=== PATIENT | female | born 1960 | race Caucasian/White ===

== ENCOUNTER 2020-07-12 13:02 | Outpatient (REF) | payer OTHER, SELFPAY ==
[2020-07-12 14:40] LABS: Anion Gap 13 (12-20); Blood Urea Nitrogen 14 mg/dL (9-16); Calcium 9.1 mg/dL (8.4-10.2); Carbon Dioxide 25 mmol/L (22-29); Chloride 106 mmol/L (96-108); Estimated Glomerular Filt Rate 45; Potassium 4.4 mmol/l (3.3-5.1); Sodium 140 mmol/L (135-145)
[2020-07-12 16:22] LABS: Renal w Reflex Lab Use Only Order verified
== END 2020-07-12 13:03 | disposition home or self-care (01) ==
LOC: HO.LAB 13:02
PROVIDERS: PCP Internal Medicine; Visit Provider Internal Medicine Nephrology
DX: I12.9 Hypertensive chronic kidney disease with stage 1 through stage 4 chronic kidney disease, or unspecified chronic kidney disease (principal); N18.30 Chronic kidney disease, stage 3 unspecified
CPT/HCPCS: 36415; 80051; 82310; 82565; 84520

== ENCOUNTER 2020-09-27 14:14 | Outpatient (REF) | payer OTHER, SELFPAY ==
[2020-09-27 16:18] LABS: Anion Gap 14 (12-20); Blood Urea Nitrogen 19 mg/dL (9-16); Calcium 8.8 mg/dL (8.4-10.2); Carbon Dioxide 21 mmol/L (22-29); Chloride 109 mmol/L (96-108); Estimated Glomerular Filt Rate 45; Phosphorus 2.6 mg/dL (2.7-4.5); Potassium 4.4 mmol/L (3.3-5.1); Sodium 140 mmol/L (135-145)
[2020-09-27 16:32] LABS: Renal w Reflex Lab Use Only Order verified
[2020-09-27 17:20] LABS: Creatinine Urine 230.62 mg/dL; Microalbum/Creatinine Ratio Ur 309.6 ug/mg cr
== END 2020-09-27 14:15 | disposition home or self-care (01) ==
LOC: HO.LAB 14:14
PROVIDERS: PCP Internal Medicine; Visit Provider Internal Medicine Nephrology
DX: I12.9 Hypertensive chronic kidney disease with stage 1 through stage 4 chronic kidney disease, or unspecified chronic kidney disease (principal); N18.30 Chronic kidney disease, stage 3 unspecified
CPT/HCPCS: 36415; 80051; 82043; 82310; 82565; 84100; 84520

== ENCOUNTER 2021-01-26 13:07 | Outpatient (REF) | payer OTHER, SELFPAY ==
[2021-01-26 14:23] LABS: Anion Gap 13 (12-20); Blood Urea Nitrogen 20 mg/dL (9-16); Calcium 9.3 mg/dL (8.4-10.2); Carbon Dioxide 23 mmol/L (22-29); Chloride 109 mmol/L (96-108); Estimated Glomerular Filt Rate 44; Potassium 4.9 mmol/L (3.3-5.1); Sodium 140 mmol/L (135-145)
== END 2021-01-26 13:08 | disposition home or self-care (01) ==
LOC: HO.LAB 13:07
PROVIDERS: PCP Internal Medicine; Visit Provider Internal Medicine Nephrology
DX: I12.9 Hypertensive chronic kidney disease with stage 1 through stage 4 chronic kidney disease, or unspecified chronic kidney disease (principal); N18.31 Chronic kidney disease, stage 3a; E11.22 Type 2 diabetes mellitus with diabetic chronic kidney disease; E11.21 Type 2 diabetes mellitus with diabetic nephropathy
CPT/HCPCS: 36415; 80051; 82310; 82565; 84520

== ENCOUNTER 2021-01-27 14:09 | Outpatient (REF) | payer OTHER, SELFPAY ==
[2021-01-27 14:49] LABS: Creatinine Urine 58.62 mg/dL; Total Protein Urine Random < 7 mg/dL (<12)
== END 2021-01-27 14:10 | disposition home or self-care (01) ==
LOC: HO.LNP 14:09
PROVIDERS: Visit Provider Internal Medicine Nephrology
DX: I12.9 Hypertensive chronic kidney disease with stage 1 through stage 4 chronic kidney disease, or unspecified chronic kidney disease (principal); N18.31 Chronic kidney disease, stage 3a; E11.22 Type 2 diabetes mellitus with diabetic chronic kidney disease; E11.21 Type 2 diabetes mellitus with diabetic nephropathy
CPT/HCPCS: 84156

== ENCOUNTER 2021-12-21 13:13 | Outpatient (REF) | payer OTHER, SELFPAY ==
[2021-12-21 14:12] LABS: Anion Gap 13 (12-20); Blood Urea Nitrogen 20 mg/dL (9-16); Calcium 9.2 mg/dL (8.4-10.2); Carbon Dioxide 23 mmol/L (22-29); Chloride 109 mmol/L (96-108); Estimated Glomerular Filt Rate 41; Potassium 4.6 mmol/L (3.3-5.1); Sodium 140 mmol/L (135-145)
[2021-12-21 14:37] LABS: Creatinine Urine 255.02 mg/dL; Protein/Creatinine Ratio, Ur 0.18 (<0.2); Total Protein Urine Random 46 mg/dL (<12)
== END 2021-12-21 13:14 | disposition home or self-care (01) ==
LOC: HO.LAB 13:13
PROVIDERS: PCP Internal Medicine; Visit Provider Internal Medicine Nephrology
DX: I12.9 Hypertensive chronic kidney disease with stage 1 through stage 4 chronic kidney disease, or unspecified chronic kidney disease (principal); N18.31 Chronic kidney disease, stage 3a; E11.22 Type 2 diabetes mellitus with diabetic chronic kidney disease; E11.21 Type 2 diabetes mellitus with diabetic nephropathy
CPT/HCPCS: 36415; 80051; 82310; 82565; 84156; 84520

== ENCOUNTER 2022-04-25 07:14 | Day surgery (SDC) | payer OTHER, SELFPAY ==
--- NOTE | 2022-04-24 12:54 | P.CONAN_ITS ---
Documented by User: Ashley Cerna NP 04/24/22 12:55 HPI - Anesthesia Eval Consult details Narrative: 62yo F for Colonoscopy [facility] Past Medical History Medical History Breast cancer, right DVT (deep venous thrombosis) HTN (hypertension) Hyperlipemia IDDM (insulin dependent diabetes mellitus) Pulmonary embolism Surgical History Surgical History H/O mastectomy History of reduction surgery of left breast Social History Social History Patient Tobacco Use Status: Never used Tobacco Are you DNR?: No Advance Directives: No Advance Directives Information Provided: Yes Meds Allergies Allergy/AdvReac Type Severity Reaction Status Date / Time transparent dressing Allergy Blister Verified 04/25/22 08:00 [Tegaderm] Home Medications Medication Instructions Recorded Confirmed Last Taken Type atorvastatin 80 mg tablet 1 tab PO DAILY 04/24/22 04/24/22 Unknown History insulin glargine 100 unit/mL (3 60 unit subcut BEDTIME 04/24/22 04/25/22 04/24/22 History mL) subcutaneous pen (Lantus 30 Solostar U-100 Insulin) insulin lispro 200 unit/mL (3 mL) subcut TID 04/24/22 04/24/22 Unknown History subcutaneous pen (Humalog KwikPen U-200 Insulin) lisinopril 10 mg tablet 1 tab PO BID 04/24/22 04/24/22 04/25/22 History aspirin 81 mg tablet,delayed 81 mg PO DAILY 04/25/22 04/25/22 04/22/22 History release Exam Exam Date and Time: April 24, 2022 1254 Assessment and Plan Assessment Anesthesia Assessment: Chart Reviewed Documented by User: Gabino Baires MD 04/25/22 08:17 [facility] Past Medical History Medical History Breast cancer, right DVT (deep venous thrombosis) HTN (hypertension) Hyperlipemia IDDM (insulin dependent diabetes mellitus) Pulmonary embolism Family History Family history of problems with anesthesia: No Surgical History Surgical History H/O mastectomy History of reduction surgery of left breast History of Problems with Anesthesia: No Social History Social History Patient Tobacco Use Status: Never used Tobacco Are you DNR?: No Advance Directives: No Advance Directives Information Provided: Yes Meds Allergies Allergy/AdvReac Type Severity Reaction Status Date / Time transparent dressing Allergy Blister Verified 04/25/22 08:00 [Tegaderm] Home Medications Medication Instructions Recorded Confirmed Last Taken Type atorvastatin 80 mg tablet 1 tab PO DAILY 04/24/22 04/24/22 Unknown History insulin glargine 100 unit/mL (3 60 unit subcut BEDTIME 04/24/22 04/25/22 04/24/22 History mL) subcutaneous pen (Lantus 30 Solostar U-100 Insulin) insulin lispro 200 unit/mL (3 mL) subcut TID 04/24/22 04/24/22 Unknown History subcutaneous pen (Humalog KwikPen U-200 Insulin) lisinopril 10 mg tablet 1 tab PO BID 04/24/22 04/24/22 04/25/22 History aspirin 81 mg tablet,delayed 81 mg PO DAILY 04/25/22 04/25/22 04/22/22 History release Exam Airway Mallampati Class: IV TM Dist: >3cm Neck ROM: Full Loose/Missing/Broken Teeth: No Heart: rrr Lungs: clear Assessment and Plan Final Anesthetic Review Family History of Problems with Anesthesia: No History of Problems with Anesthesia: No NPO: Yes ASA Class: III Final Preanesthetic Review: No Changes in Pt Med Stat, Meds/Allgs Chart Reviewed, Consent Obtained/Reviewed and Anes Risks/Benef Reviewed Patient Risk: Intermediate Procedure Risk: Low Anesthetic Plan Anesthetic Plan: MAC: Disposition: Standard PACU
[2022-04-25 07:26] VITALS: BP 160/69; PULSE 74; RESP 16; TEMP 36.1; O2SAT 97; BMI 42.0
[2022-04-25 07:56] LABS: Glucose, Whole Blood 158 mg/dL (60-115)
[2022-04-25] MEDS: Lactated Ringers 1,000 ML 100 ML IVCONT (07:59)
--- NOTE | 2022-04-25 08:22 | PC.NURSE ---
pt with bbb on strip, hx of [address] pizano anesthesiologist aware. no new orders.
[2022-04-25 09:12] VITALS: BP 96/57; PULSE 79; RESP 24; TEMP 36.3; O2SAT 95
--- NOTE | 2022-04-25 09:12 | PM.OP ---
Brief Operative Note Date of Service: 04/25/22 Pre-op diagnosis: Screening Post-op diagnosis: other (Colon polyp) Procedure: Colonoscopy to the cecum and TI with cold snare polypectomy x 1 Surgeon: Lg Howard Anesthesia: MAC Was an Direct Sales Representative used for this Procedure?: No Estimated blood loss (mL): 2.0 Pathology: none sent Condition: stable Disposition: PACU
[2022-04-25 09:27] VITALS: BP 116/71; PULSE 74; RESP 18; TEMP 36.1; O2SAT 98
--- NOTE | 2022-04-25 21:40 | OP_ITS ---
SURGEON: Lg Howard MD INDICATIONS: The patient presents for evaluation of personal history of tubular adenoma of the colon and colorectal cancer screening. Full consent obtained from her for this, including risks of bleeding and perforation. PREOPERATIVE DIAGNOSIS: POSTOPERATIVE DIAGNOSIS: PROCEDURE PERFORMED: Colonoscopy to cecum and terminal ileum with cold snare polypectomy. ESTIMATED BLOOD LOSS: COMPLICATIONS: ANESTHESIA: Medication used; monitored anesthesia care. ASSISTANTS: SPECIMENS: PREOPERATIVE DIAGNOSES: Colorectal cancer screening and personal history of tubular adenoma of the colon. POSTOPERATIVE DIAGNOSES: Colorectal cancer screening and personal history of tubular adenoma of the colon, colon polyps, diverticulosis, and internal hemorrhoids. DESCRIPTION OF PROCEDURE: The patient was placed in the left lateral decubitus position. The digital rectal exam revealed no abnormalities. The Olympus videopediatric colonoscope was entered into the rectum and advanced easily to the cecum. Once in the cecum, I did identify normal-appearing cecal pouch with appendiceal orifice and a normal-appearing ileocecal valve. The terminal ileum was cannulated and appeared normal. The scope withdrawn back in the colon. The entire cecum and ileocecal valve appeared normal. The scope was then slowly withdrawn assessing all mucosal surfaces carefully. Preparation was excellent. At 60 cm, there was an approximately 5 or 6 mm grossly adenomatous polyp, which was removed by cold snare polypectomy, but not recovered. The polypectomy site appeared clean, without any sign of residual polyp nor bleeding. I did not visualize any other polyps, colitis, or angiodysplasia. There was a mild amount of sigmoid diverticulosis. In the rectum, the scope was retroflexed visualizing small internal hemorrhoids, but no other pathology. The rectal mucosa appeared normal. The scope was straightened and withdrawn from the patient. She tolerated the procedure well and was returned to recovery area in stable condition. IMPRESSION: 1. Small colon polyp. 2. Diverticulosis. 3. Internal hemorrhoids. PLAN: I would recommend a repeat colonoscopy in 5 years for further screening and surveillance. She was advised to resume her aspirin in 48 hours. She will otherwise see me on a p.r.n. basis. MD SUNSHINE Ziegler/LYNDSEY / [phone]
== END 2022-04-25 09:58 | disposition home or self-care (01) ==
PROVIDERS: PCP Internal Medicine; Visit Provider Internal Medicine
PROC: 0DJD8ZZ Inspection of Lower Intestinal Tract, Via Natural or Artificial Opening Endoscopic (ICD-10-PCS; CPT 45378; principal; 2022-04-25 08:30)
DX: Z12.11 Encounter for screening for malignant neoplasm of colon (principal); Z86.010 Personal history of colon polyps; D12.4 Benign neoplasm of descending colon; K57.30 Diverticulosis of large intestine without perforation or abscess without bleeding; K64.8 Other hemorrhoids; E11.9 Type 2 diabetes mellitus without complications; I10 Essential (primary) hypertension; E78.5 Hyperlipidemia, unspecified; Z79.4 Long term (current) use of insulin; Z79.82 Long term (current) use of aspirin; Z79.899 Other long term (current) drug therapy; Z88.8 Allergy status to other drugs, medicaments and biological substances; Z85.3 Personal history of malignant neoplasm of breast; Z90.11 Acquired absence of right breast and nipple; Z86.711 Personal history of pulmonary embolism; Z86.718 Personal history of other venous thrombosis and embolism
CPT/HCPCS: 45385; 82947

== ENCOUNTER 2022-10-05 13:25 | Outpatient (REF) | payer OTHER, SELFPAY ==
[2022-10-05 14:24] LABS: Anion Gap 13 (12-20); Blood Urea Nitrogen 20 mg/dL (9-16); Calcium 9.2 mg/dL (8.4-10.2); Carbon Dioxide 24 mmol/L (22-29); Chloride 109 mmol/L (96-108); Estimated Glomerular Filt Rate 46; Potassium 4.4 mmol/L (3.3-5.1); Sodium 142 mmol/L (135-145)
[2022-10-05 15:30] LABS: Creatinine Urine 32.75 mg/dL; Total Protein Urine Random < 7 mg/dL (<12)
== END 2022-10-05 13:26 | disposition home or self-care (01) ==
LOC: HO.LAB 13:25
PROVIDERS: PCP Internal Medicine; Visit Provider Internal Medicine Nephrology
DX: E11.22 Type 2 diabetes mellitus with diabetic chronic kidney disease (principal); I12.9 Hypertensive chronic kidney disease with stage 1 through stage 4 chronic kidney disease, or unspecified chronic kidney disease; N18.31 Chronic kidney disease, stage 3a; E11.21 Type 2 diabetes mellitus with diabetic nephropathy
CPT/HCPCS: 36415; 80051; 82310; 82565; 84156; 84520

== ENCOUNTER 2023-04-10 13:08 | Outpatient (REF) | payer MEDICARE, SELFPAY ==
[2023-04-10 14:08] LABS: Anion Gap 14 (12-20); Blood Urea Nitrogen 19 mg/dL (9-16); Calcium 9.2 mg/dL (8.4-10.2); Carbon Dioxide 21 mmol/L (22-29); Chloride 111 mmol/L (96-108); Estimated Glomerular Filt Rate 44; Potassium 4.6 mmol/L (3.3-5.1); Sodium 141 mmol/L (135-145)
[2023-04-10 15:34] LABS: Creatinine Urine 106.96 mg/dL; Protein/Creatinine Ratio, Ur 0.29 (<0.2); Total Protein Urine Random 31 mg/dL (<12)
== END 2023-04-10 13:09 | disposition home or self-care (01) ==
LOC: HO.LAB 13:08
PROVIDERS: PCP Internal Medicine; Visit Provider Internal Medicine Nephrology
DX: I12.9 Hypertensive chronic kidney disease with stage 1 through stage 4 chronic kidney disease, or unspecified chronic kidney disease (principal); N18.31 Chronic kidney disease, stage 3a
CPT/HCPCS: 36415; 80051; 82310; 82565; 82570; 84156; 84520

== ENCOUNTER 2023-05-07 13:46 | Outpatient (AMB) | payer MEDICARE, SELFPAY ==
--- NOTE | 2023-05-07 13:55 | HO.NEPHOV ---
HPI HPI Comments History of Present Illness Details Alejandra was seen in the office in follow-up of her chronic kidney disease, hypertension proteinuria. She has diabetic nephropathy. Her blood sugar is better. She follows closely with Dr. Mcghee .She had been prescribed Jardiance in the past but could not afford the cost. She has not had any hypoglycemias. Her blood pressure is well controlled. She did not have any urinary infections. She keeps up with good hydration and avoid nonsteroidal anti-inflammatory medications . she denies any chest pain, shortness of breath, proximal nocturnal dyspnea, orthopnea or pedal edema. She is compliant with her medications. Her night time insulin dosages come down. She feels well otherwise. [facility] Medical History (Updated 05/07/23 @ 14:44 by Yousif Carney MD) DVT (deep venous thrombosis) Pulmonary embolism Hyperlipemia HTN (hypertension) IDDM (insulin dependent diabetes mellitus) Breast cancer, right Surgical History History of reduction surgery of left breast H/O mastectomy Social History Patient Tobacco Use Status: Never used Tobacco Vital Signs 05/07/23 13:58 Height 5 ft 4 in Weight 250 lb 4 oz BMI 43.0 BP 140/70 H Blood Pressure Location Lt brachial Position Sitting Pulse 78 Pulse Source Pulse Oximeter Assessment & Plan Assessment & Plan (1) CKD stage 3 due to type 2 diabetes mellitus: Code(s): E11.22 - Type 2 diabetes mellitus with diabetic chronic kidney disease; N18.30 - Chronic kidney disease, stage 3 unspecified (2) HTN (hypertension): Code(s): I10 - Essential (primary) hypertension Qualifiers: Hypertension type: primary hypertension Qualified Code(s): I10 - Essential (primary) hypertension Plan Alejandra has history chronic kidney disease from diabetes mellitus. She has a diabetic nephropathy. Her proteinuria is currently acceptable. She was prescribed Jardiance but could not continue due to its cost. Her blood pressure is at goal. She is on lisinopril. Her blood sugar controls are better. She needs to lose weight . She should avoid nonsteroidal anti-inflammatory medications. She should maintain good hydration. I will ordered for all blood work and urine studies. All questions were answered. Time spent for retrieval of V-tach, patient encounter and documentation 37 minutes. Orders: Orders Electrolytes Today E11.22 - Type 2 diabetes mellitus with diabetic chronic kidney disease, I10 - Essential (primary) hypertension, N18.30 - Chronic kidney disease, stage 3 unspecified Blood Urea Nitrogen Today E11.22 - Type 2 diabetes mellitus with diabetic chronic kidney disease, I10 - Essential (primary) hypertension, N18.30 - Chronic kidney disease, stage 3 unspecified Creatinine Today E11.22 - Type 2 diabetes mellitus with diabetic chronic kidney disease, I10 - Essential (primary) hypertension, N18.30 - Chronic kidney disease, stage 3 unspecified Calcium Today E11.22 - Type 2 diabetes mellitus with diabetic chronic kidney disease, I10 - Essential (primary) hypertension, N18.30 - Chronic kidney disease, stage 3 unspecified Protein Creatinine Ratio, Ur Today E11.22 - Type 2 diabetes mellitus with diabetic chronic kidney disease, I10 - Essential (primary) hypertension, N18.30 - Chronic kidney disease, stage 3 unspecified Coding Level of Care Code Est Pt Level 4 (82175) Diagnoses CKD stage 3 due to type 2 diabetes mellitus E11.22; N18.30 Primary hypertension I10 Hypertension type: primary hypertension
[2023-05-07 13:58] VITALS: BP 140/70; PULSE 78; BMI 43.0
== END 2023-05-07 14:37 | disposition home or self-care (01) ==
PROVIDERS: PCP Internal Medicine; Visit Provider Internal Medicine Nephrology
DX: E11.22 Type 2 diabetes mellitus with diabetic chronic kidney disease (principal); N18.30 Chronic kidney disease, stage 3 unspecified; I12.9 Hypertensive chronic kidney disease with stage 1 through stage 4 chronic kidney disease, or unspecified chronic kidney disease
CPT/HCPCS: 99214

== ENCOUNTER → 2023-05-07 13:46 | Outpatient (BNVA) | payer MEDICARE, SELFPAY | PROVIDERS: PCP Internal Medicine; Visit Provider Internal Medicine Nephrology | DX: E11.22 Type 2 diabetes mellitus with diabetic chronic kidney disease (principal); I12.9 Hypertensive chronic kidney disease with stage 1 through stage 4 chronic kidney disease, or unspecified chronic kidney disease; N18.30 Chronic kidney disease, stage 3 unspecified | CPT/HCPCS: 99212 ==

== ENCOUNTER 2023-05-09 16:14 | Emergency (ER) | payer MEDICARE, SELFPAY ==
--- NOTE | ~2023-05-09 | XR_ITS ---
EXAMINATION: XR ABDOMEN KUB CLINICAL INDICATION: Constipation. COMPARISON: None available. TECHNIQUE: AP view of the abdomen. FINDINGS: Evaluation is limited secondary to patient body habitus. Nonobstructive bowel gas pattern. Mild degree of stool burden. No acute osseous findings. Mild degenerative changes in the hips. Scattered vascular calcifications. Small pelvic phleboliths. XR/XR KUB IMPRESSION: Nonobstructive bowel gas pattern. Mild degree of stool burden.
--- NOTE | ~2023-05-09 | CT_ITS ---
EXAMINATION: CT ABDOMEN AND PELVIS WITH CONTRAST CLINICAL INFORMATION: Pain. COMPARISON: None available. TECHNIQUE: Multidetector volumetric images were obtained from the superior aspect of the liver through the pubic symphysis following administration 85 mL of Omnipaque 350 intravenous contrast. Sagittal and coronal reformatted images were obtained on the technologist's workstation. Oral contrast: No This CT examination was performed using dose optimization techniques as appropriate, variously including the following: *Automated exposure control *Adjustment of mA and/or kV according to patient size (this includes techniques or standardized protocols for targeted exams where dose is matched to indication/reason for exam; i.e. extremities or head) *Use of iterative reconstruction technique DLP: 1003 mGy-cm FINDINGS: LUNG BASES: There is a calcific granuloma at the left lung base. LIVER, GALLBLADDER, AND BILIARY TREE: The liver is normal in size, shape, and attenuation. No focal hepatic lesion or biliary ductal dilatation is present. The gallbladder is unremarkable with no evidence of radiopaque gallstones, gallbladder wall thickening, or obvious pericholecystic inflammatory changes. PANCREAS: Unremarkable. SPLEEN: Unremarkable. ADRENAL GLANDS: Unremarkable. KIDNEYS AND URETERS: The kidneys are normal in position. The right kidney is small and thin relative to the left. There are scattered predominantly right-sided renal hypodensities measuring up to 1.5 cm mostly likely cysts but some are too small to characterize. There is no hydronephrosis. BLADDER: Unremarkable. GASTROINTESTINAL TRACT: The appendix is not seen. There is retained stool throughout large bowel. There is anterior mid abdominal omental infiltration/nodularity. ABDOMINAL WALL: No significant hernia is appreciated. LYMPH NODES: Normal. VASCULAR: Unremarkable. PELVIC VISCERA: Unremarkable. There is a small amount of mildly dense free fluid within the pelvis and upper abdomen along the liver. OSSEOUS STRUCTURES: Unremarkable. CT/CT abdomen pelvis w IV con IMPRESSION: Small amount of mildly dense fluid within the abdomen and pelvis of uncertain etiology. There is also anterior mid abdominal omental infiltration/nodularity. Omental metastatic disease is a consideration. Please correlate with history of known malignancy. Follow-up is recommended. No other significant abnormality seen. Fleischner guidelines were followed.
[2023-05-09 16:27] VITALS: BP 174/78; PULSE 82; RESP 18; TEMP 36.3; O2SAT 97; BMI 43.4
--- NOTE | 2023-05-09 16:31 | ED_ITS ---
HPI - General Adult General Chief complaint: Abdominal Pain Stated complaint: Abdominal pain - referred by dr Medrano Seen by Provider: 05/09/23 21:06 History of Present Illness HPI narrative: Seen by Dr. Frost Related Data Home Medications Medication Instructions Recorded Confirmed atorvastatin 80 mg tablet 1 tab PO DAILY 04/24/22 04/24/22 insulin glargine 100 unit/mL (3 60 unit subcut BEDTIME 04/24/22 04/25/22 mL) subcutaneous pen (Lantus Solostar U-100 Insulin) insulin lispro 200 unit/mL (3 mL) subcut TID 04/24/22 04/24/22 subcutaneous pen (Humalog KwikPen U-200 Insulin) lisinopril 10 mg tablet 1 tab PO BID 04/24/22 04/24/22 aspirin 81 mg tablet,delayed 81 mg PO DAILY 04/25/22 04/25/22 release dicyclomine 10 mg capsule 10 mg PO TID 05/07/23 multivitamin 1 tab PO DAILY 05/07/23 Previous Rx's Medication Instructions Recorded cephalexin 500 mg capsule 500 mg PO TID 7 days #21 caps 05/10/23 Allergies Allergy/AdvReac Type Severity Reaction Status Date / Time liraglutide [From Victoza] Allergy Intermediate Gastrointestinal Verified 05/09/23 16:27 Upset metformin Allergy Intermediate Gastrointestinal Verified 05/09/23 16:27 Upset transparent dressing Allergy Blister Verified 05/07/23 14:01 [Tegaderm] PMFSH Past Medical History Medical History DVT (deep venous thrombosis) Pulmonary embolism Hyperlipemia HTN (hypertension) IDDM (insulin dependent diabetes mellitus) Breast cancer, right Surgical History History of reduction surgery of left breast H/O mastectomy Social History Social History Alcohol intake: never Patient Tobacco Use Status: Never used Tobacco Smoked in Last 30 Days: No Use of substances other than those prescribed or required for medical reasons: No Advance Directives: No Physical Exam ED Vital Signs: Vital Signs - 24 hr 05/09/23 16:27 05/09/23 19:43 05/09/23 20:49 Temperature 97.3 F 98.1 F 98.3 F Pulse Rate 82 80 82 Respiratory Rate 18 16 16 Blood Pressure 174/78 H 157/61 H 137/65 Pulse Oximetry 97 96 95 Oxygen Delivery Method Room Air Room Air Room Air 05/10/23 02:17 Temperature 98.0 F Pulse Rate 80 Respiratory Rate 18 Blood Pressure 129/78 Pulse Oximetry 98 Oxygen Delivery Method Room Air BMI result Body Mass Index 43.4 Course Course Course Narrative: RME: 63 yold female presents to the ED lower abdominal pain and constipation for the past two days. Sent by PCP. labs and KUB ordered Medications Administered Discontinued Medications Generic Name Dose Route Start Last Admin Trade Name Freq PRN Reason Stop Dose Admin Iohexol 85 ml 05/09/23 23:32 05/09/23 23:32 Iohexol 350 Mg/Ml 100 Ml Infus..Btl IV 05/09/23 23:33 85 ml ONCE ONE Administration Medical Decision Making Lab Data 05/09/23 17:30 05/09/23 17:30 Labs: Lab Results 05/09/23 Range/Units 17:30 WBC 6.2 (4.8-10.8) X10*3/uL RBC 3.45 L (4.20-5.50) X10*6/uL Hgb 10.9 L (12.0-16.0) g/dl Hct 32.9 L (37.0-47.0) % MCV 95.4 (80.0-98.0) fL MCH 31.6 (27.0-33.0) pg MCHC 33.1 (31.0-35.0) g/dl RDW 12.5 (11.0-16.0) % Plt Count 222 (160-400) X10*3/uL MPV 10.7 (9.4-12.3) fL Immature Gran % (Auto) 0.5 H (0.0-0.4) % Neut % (Auto) 75.9 H (45-73) % Lymph % (Auto) 12.2 L (20-40) % [place] % (Auto) 8.3 (2-11) % Eos % (Auto) 2.6 (0-4) % Baso % (Auto) 0.5 (0-2) % Lymph # (Auto) 0.8 L (1.2-4.9) X10*3/uL [place] # (Auto) 0.5 (0.1-1.2) X10*3/uL Eos # (Auto) 0.2 (0.0-0.4) X10*3/uL Baso # (Auto) 0.0 (0.0-0.2) X10*3/uL Abs Immat Gran (auto) 0.03 (0.00-0.03) X10*3/uL Absolute Neuts (auto) 4.7 (2.0-8.3) x10*3/uL Absolute Nucleated RBC 0.000 (0.0-0.012) X10*3/uL Nucleated RBC % (auto) 0.0 (0.0-0.2) /100WBC Sodium 142 (135-145) mmol/L Potassium 4.6 (3.3-5.1) mmol/L Chloride 111 H (96-108) mmol/L Carbon Dioxide 23 (22-29) mmol/L Anion Gap 13 (12-20) BUN 20 H (9-16) mg/dL Creatinine 1.25 (0.5-1.4) mg/dL Estim Creat Clear Calc 55.8 Estimated GFR 43 Random Glucose 89 (60-115) mg/dL Calcium 9.4 (8.4-10.2) mg/dL Total Bilirubin 0.3 (0.0-1.0) mg/dL AST 17 (5-31) U/L ALT 18 (0-31) U/L Alkaline Phosphatase 74 (39-117) U/L Total Protein 7.3 (6.5-8.0) g/dL Albumin 4.0 (3.5-5.0) g/dL Lipase 17 (8-78) U/L Urine Color Yellow Urine Appearance Clear Urine pH 6.5 (5.0-9.0) Ur Specific [place] <= 1.005 (1.005-1.025) Urine Protein Negative (Neg-Trace) mg/dL Urine Glucose (UA) Negative (Negative) mg/dL Urine Ketones Negative (Negative) mg/dL Urine Blood Negative (Negative) Urine Nitrite Negative (Negative) Ur Leukocyte Esterase Moderate (2+) H (Negative) Urine RBC 0-2 (0-2) /HPF Urine WBC 21-50 H (0-5) /HPF Ur Squamous Epith Cells 0-2 (0-2) /HPF Urine Bacteria None Seen (None Seen) Hyaline Casts 0-2 (0-2) /LPF Discharge Plan Discharge Clinical Impression: Urinary tract infection Patient Disposition: Home, Self-Care Instructions: Urinary Tract Infection in Women (DC) Additional Instructions: small risk of cancer exists in your abdomen. Please closely follow-up with your doctor. A copy of the CT scan report was given to you. Prescriptions: New cephalexin 500 mg capsule 500 mg PO TID 7 Days Qty: 21 0RF No Action atorvastatin 80 mg tablet 1 tab PO DAILY lisinopril 10 mg tablet 1 tab PO BID insulin glargine [Lantus Solostar U-100 Insulin] 100 unit/mL (3 mL) insulin pen 60 unit subcut BEDTIME Patient Comments: 30 units lantus 04/24/22 @ hs Humalog KwikPen Insulin 200 unit/mL (3 mL) insulin pen subcut TID aspirin [Aspir-81] 81 mg Tablet,Delayed Release (Dr/Ec) 81 mg PO DAILY multivitamin Tablet 1 tab PO DAILY dicyclomine 10 mg capsule 10 mg PO TID Referrals: Jovanni Ortiz MD [Primary Care Provider] - 05/13/23 Interventions: ED Discharge Assessment Last Done: 05/10/23 02:15 Discharge Date/Time: 05/10/23 02:18
[2023-05-09 17:36] LABS: MANUAL DIFF FLAG NO
[2023-05-09 17:41] LABS: Appearance Urine Clear; Color Urine Yellow; Glucose Urine UA Negative (Negative); Leukocyte Esterase Urine Moderate (2+) (Negative); Nitrite Urine Negative (Negative); PH 6.5 (5.0-9.0); Specific Gravity - Urine <= 1.005 (1.005-1.025); UMIC TRIGGER UACC YES; Urine Blood Negative (Negative); Urine Ketones Negative (Negative); Urine Protein Negative (Neg-Trace)
[2023-05-09 17:43] LABS: Basophils Percent Auto 0.5 % (0-2); Eosinophils Absolute Auto 0.2 X10*3/uL (0.0-0.4); Eosinophils Percent Auto 2.6 % (0-4); Hematocrit 32.9 % (37.0-47.0); Hemoglobin 10.9 g/dl (12.0-16.0); Imm Gran Abs Auto 0.03 X10*3/uL (0.00-0.03); Imm Gran Pct Auto 0.5 % (0.0-0.4); Lymphocytes Absolute Auto 0.8 X10*3/uL (1.2-4.9); Lymphocytes Percent Auto 12.2 % (20-40); Mean Corpuscular HGB Conc 33.1 g/dl (31.0-35.0); Mean Corpuscular Hemoglobin 31.6 pg (27.0-33.0); Mean Corpuscular Volume 95.4 fL (80.0-98.0); Mean Platelet Volume 10.7 fL (9.4-12.3); Monocytes Absolute Auto 0.5 X10*3/uL (0.1-1.2); Monocytes Percent Auto 8.3 % (2-11); Neutrophils Absolute Auto 4.7 x10*3/uL (2.0-8.3); Neutrophils Percent Auto 75.9 % (45-73); Platelet Count 222 X10*3/uL (160-400); Red Blood Count 3.45 X10*6/uL (4.20-5.50); Red Cell Distribution Width 12.5 % (11.0-16.0); White Blood Count 6.2 X10*3/uL (4.8-10.8)
[2023-05-09 17:46] LABS: Bacteria Urine None Seen (None Seen); Hyaline Casts Urine 0-2 /LPF (0-2); RBC Urine 0-2 /HPF (0-2); Squamous Epithelial Cell Urine 0-2 /HPF (0-2); UACC Culture Trigger YES; WBC Urine 21-50 /HPF (0-5)
[2023-05-09 17:51] LABS: Alanine Aminotransferase 18 U/L (0-31); Alkaline Phosphatase 74 U/L (39-117); Anion Gap 13 (12-20); Aspartate Amino Transferase 17 U/L (5-31); Bilirubin Total 0.3 mg/dL (0.0-1.0); Blood Urea Nitrogen 20 mg/dL (9-16); Calcium 9.4 mg/dL (8.4-10.2); Carbon Dioxide 23 mmol/L (22-29); Chloride 111 mmol/L (96-108); Creatinine Clr Calc Pharmacy 55.8; Estimated Glomerular Filt Rate 43; Glucose Random 89 mg/dL (60-115); Lipase 17 U/L (8-78); Potassium 4.6 mmol/L (3.3-5.1); Sodium 142 mmol/L (135-145); Total Protein 7.3 g/dL (6.5-8.0)
[2023-05-09 19:43] VITALS: BP 157/61; PULSE 80; RESP 16; TEMP 36.7; O2SAT 96
[2023-05-09 20:49] VITALS: BP 137/65; PULSE 82; RESP 16; TEMP 36.8; O2SAT 95
--- NOTE | 2023-05-09 20:56 | PC.NURSE ---
Patient presenting to ED for evaluation of lower abdominal pain and constipation for the past two days. Sent by MD, labs and UA collected at triage, and KUB completed. Patient reports non-radiating, sharp, cramp like pain in her lower abdomen 5/10 on 0-10 pain scale, no nausea, no vomiting. Patient is afebrile. VSS. Patient's spouse at bed side call angulo within patient's reach. Patient awaiting to be seen by ED provider.
--- NOTE | 2023-05-09 22:51 | ED_ITS ---
HPI - Abdominal Pain General Chief Complaint: Abdominal Pain Stated Complaint: Abdominal pain - referred by dr Medrano Seen by Provider: 05/09/23 21:06 History of Present Illness HPI narrative: patient is a 63-year-old female with a history of chronic kidney disease history of hypertension presented today with having abdominal pain. The abdominal pain is diffuse over the lower abdomen. There is no pain on urination. No history of abdominal surgery. No fever no chills. No nausea. Positive history of constipation for the last few days. Patient denies any diaphoresis. No cough no congestion or upper respiratory symptoms. No history of diverticulitis. Related Data Home Medications Medication Instructions Recorded Confirmed atorvastatin 80 mg tablet 1 tab PO DAILY 04/24/22 04/24/22 insulin glargine 100 unit/mL (3 60 unit subcut BEDTIME 04/24/22 04/25/22 mL) subcutaneous pen (Lantus Solostar U-100 Insulin) insulin lispro 200 unit/mL (3 mL) subcut TID 04/24/22 04/24/22 subcutaneous pen (Humalog KwikPen U-200 Insulin) lisinopril 10 mg tablet 1 tab PO BID 04/24/22 04/24/22 aspirin 81 mg tablet,delayed 81 mg PO DAILY 04/25/22 04/25/22 release dicyclomine 10 mg capsule 10 mg PO TID 05/07/23 multivitamin 1 tab PO DAILY 05/07/23 Previous Rx's Medication Instructions Recorded cephalexin 500 mg capsule 500 mg PO TID 7 days #21 caps 05/10/23 Allergies Allergy/AdvReac Type Severity Reaction Status Date / Time liraglutide [From Victoza] Allergy Intermediate Gastrointestinal Verified 05/09/23 16:27 Upset metformin Allergy Intermediate Gastrointestinal Verified 05/09/23 16:27 Upset transparent dressing Allergy Blister Verified 05/07/23 14:01 [Tegaderm] Review of Systems Review of Systems Positive abdominal pain Yes all other systems are reviewed and are negative PMFSH Past Medical History Attestation statement: The following information was validated with the patient. Medical History DVT (deep venous thrombosis) Pulmonary embolism Hyperlipemia HTN (hypertension) IDDM (insulin dependent diabetes mellitus) Breast cancer, right Surgical History History of reduction surgery of left breast H/O mastectomy Social History Social History Alcohol intake: never Patient Tobacco Use Status: Never used Tobacco Smoked in Last 30 Days: No Use of substances other than those prescribed or required for medical reasons: No Advance Directives: No Physical Exam ED Vital Signs: Vital Signs - 24 hr 05/09/23 16:27 05/09/23 19:43 05/09/23 20:49 Temperature 97.3 F 98.1 F 98.3 F Pulse Rate 82 80 82 Respiratory Rate 18 16 16 Blood Pressure 174/78 H 157/61 H 137/65 Pulse Oximetry 97 96 95 Oxygen Delivery Method Room Air Room Air Room Air BMI result Body Mass Index 43.4 Appearance: Alert. Oriented X3. No acute distress. Eyes: Pupils equal, round and reactive to light. ENT: Pharynx normal. Neck: Normal inspection. Neck supple. No lymph nodes noted. No crepitus CVS: Normal heart rate and rhythm. Pulses normal. Normal S1 and S2 Respiratory: No respiratory distress. Breath sounds normal. No Wheezing. No rales Abdomen: Soft and nontender. No rigidity. No distention. good BS x4 Skin: Skin warm and dry. Normal skin color. Normal skin turgor. Extremities: No lower extremity edema. Neurovascular intact to all extremities. No Lacerations. No Rash Neuro: Oriented X 3. No motor deficit. No sensory deficit. Moving all extermities. No slurred speech Medical Decision Making Medical Decision Making MDM Narrative: patient presents today with having low abdominal pain. Previous history of breast cancer in 2006. Positive history of hypertension. Positive history of diabetes. CT scan of the abdomen showed no evidence of obstruction abscess perforation. Radiologist reading showed a nonspecific omental infiltrate. Question malignancy. this finding was explained to patient. Follow-up as needed. Patient will follow-up with her GI specialist. Her primary physician as well. She has a urinary tract infection. Will start patient on antibiotics. Patient's white count is normal. Hemoglobin 10. Patient electrolytes normal. Differential Diagnosis Differential Diagnoses: The differential diagnosis associated with the presentation includes Cancer, UTI, obstruction, abscess, perforation, diverticulitis, kidney stone, constipation Admission/Observation Consideration of admission/observation: Escalation of care including admission/observation considered no need patient well appearing no Lab Data MDM Lab Attestation statement: I reviewed the patient's lab results. 05/09/23 17:30 05/09/23 17:30 Labs: Lab Results 05/09/23 Range/Units 17:30 WBC 6.2 (4.8-10.8) X10*3/uL RBC 3.45 L (4.20-5.50) X10*6/uL Hgb 10.9 L (12.0-16.0) g/dl Hct 32.9 L (37.0-47.0) % MCV 95.4 (80.0-98.0) fL MCH 31.6 (27.0-33.0) pg MCHC 33.1 (31.0-35.0) g/dl RDW 12.5 (11.0-16.0) % Plt Count 222 (160-400) X10*3/uL MPV 10.7 (9.4-12.3) fL Immature Gran % (Auto) 0.5 H (0.0-0.4) % Neut % (Auto) 75.9 H (45-73) % Lymph % (Auto) 12.2 L (20-40) % [place] % (Auto) 8.3 (2-11) % Eos % (Auto) 2.6 (0-4) % Baso % (Auto) 0.5 (0-2) % Lymph # (Auto) 0.8 L (1.2-4.9) X10*3/uL [place] # (Auto) 0.5 (0.1-1.2) X10*3/uL Eos # (Auto) 0.2 (0.0-0.4) X10*3/uL Baso # (Auto) 0.0 (0.0-0.2) X10*3/uL Abs Immat Gran (auto) 0.03 (0.00-0.03) X10*3/uL Absolute Neuts (auto) 4.7 (2.0-8.3) x10*3/uL Absolute Nucleated RBC 0.000 (0.0-0.012) X10*3/uL Nucleated RBC % (auto) 0.0 (0.0-0.2) /100WBC Sodium 142 (135-145) mmol/L Potassium 4.6 (3.3-5.1) mmol/L Chloride 111 H (96-108) mmol/L Carbon Dioxide 23 (22-29) mmol/L Anion Gap 13 (12-20) BUN 20 H (9-16) mg/dL Creatinine 1.25 (0.5-1.4) mg/dL Estim Creat Clear Calc 55.8 Estimated GFR 43 Random Glucose 89 (60-115) mg/dL Calcium 9.4 (8.4-10.2) mg/dL Total Bilirubin 0.3 (0.0-1.0) mg/dL AST 17 (5-31) U/L ALT 18 (0-31) U/L Alkaline Phosphatase 74 (39-117) U/L Total Protein 7.3 (6.5-8.0) g/dL Albumin 4.0 (3.5-5.0) g/dL Lipase 17 (8-78) U/L Urine Color Yellow Urine Appearance Clear Urine pH 6.5 (5.0-9.0) Ur Specific [place] <= 1.005 (1.005-1.025) Urine Protein Negative (Neg-Trace) mg/dL Urine Glucose (UA) Negative (Negative) mg/dL Urine Ketones Negative (Negative) mg/dL Urine Blood Negative (Negative) Urine Nitrite Negative (Negative) Ur Leukocyte Esterase Moderate (2+) H (Negative) Urine RBC 0-2 (0-2) /HPF Urine WBC 21-50 H (0-5) /HPF Ur Squamous Epith Cells 0-2 (0-2) /HPF Urine Bacteria None Seen (None Seen) Hyaline Casts 0-2 (0-2) /LPF Independent Interpretation I performed an independent interpretation of an: Plain X-Ray ( KUB showed no overt obstruction) and CT Scan ( CT scan abdomen pelvis showed no overt obstruction abscess perforation) Radiology Impression Discussion of test interpretation with radiology: I have reviewed the radiologist's reading. External Record Review External record reviewed: Office record the patient has been office record from [facility] reviewed Chronic Conditions Patient?s care impacted by: Diabetes and Hypertension Medications Administered Discontinued Medications Generic Name Dose Route Start Last Admin Trade Name Freq PRN Reason Stop Dose Admin Iohexol 85 ml 05/09/23 23:32 05/09/23 23:32 Iohexol 350 Mg/Ml 100 Ml Infus..Btl IV 05/09/23 23:33 85 ml ONCE ONE Administration Discharge Plan Discharge Clinical Impression: Urinary tract infection Patient Disposition: Home, Self-Care Instructions: Urinary Tract Infection in Women (DC) Additional Instructions: small risk of cancer exists in your abdomen. Please closely follow-up with your doctor. A copy of the CT scan report was given to you. Prescriptions: New cephalexin 500 mg capsule 500 mg PO TID 7 Days Qty: 21 0RF No Action atorvastatin 80 mg tablet 1 tab PO DAILY lisinopril 10 mg tablet 1 tab PO BID insulin glargine [Lantus Solostar U-100 Insulin] 100 unit/mL (3 mL) insulin pen 60 unit subcut BEDTIME Patient Comments: 30 units lantus 04/24/22 @ Humalog KwikPen Insulin 200 unit/mL (3 mL) insulin pen subcut TID aspirin [Aspir-81] 81 mg Tablet,Delayed Release (Dr/Ec) 81 mg PO DAILY multivitamin Tablet 1 tab PO DAILY dicyclomine 10 mg capsule 10 mg PO TID Referrals: Jovanni Ortiz MD [Primary Care Provider] - 05/13/23
[2023-05-09] MEDS: iohexoL 350 MG/ML 100 ML INFUS..BTL 85 ML IV (23:32)
[2023-05-10 02:17] VITALS: BP 129/78; PULSE 80; RESP 18; TEMP 36.7; O2SAT 98
== END 2023-05-10 02:18 | disposition home or self-care (01) ==
PROVIDERS: Physician Assistant; Emergency Provider Emergency Medicine Emergency Medical Services; PCP Internal Medicine
DX: N39.0 Urinary tract infection, site not specified (principal); E11.9 Type 2 diabetes mellitus without complications; I10 Essential (primary) hypertension; E78.5 Hyperlipidemia, unspecified; E66.9 Obesity, unspecified; Z68.41 Body mass index [BMI] 40.0-44.9, adult; Z86.718 Personal history of other venous thrombosis and embolism; Z86.711 Personal history of pulmonary embolism; Z85.3 Personal history of malignant neoplasm of breast; Z79.4 Long term (current) use of insulin; Z79.82 Long term (current) use of aspirin
CPT/HCPCS: 36415; 74018; 74177; 80053; 81001; 83690; 85025; 87086; 99284; Q9967

== ENCOUNTER 2023-11-06 13:50 | Outpatient (AMB) | payer MEDICARE, SELFPAY ==
--- NOTE | 2023-11-06 14:03 | HO.NEPHOV ---
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 She has diabetic nephropathy. Her blood sugar is better. She follows closely with Dr. Mcghee .She had been prescribed Jardiance in the past but could not afford the cost. She has not had any hypoglycemias. Her blood pressure is well controlled. She did not have any urinary infections. She keeps up with good hydration and avoid nonsteroidal anti-inflammatory medications . she denies any chest pain, shortness of breath, proximal nocturnal dyspnea, orthopnea or pedal edema. She is compliant with her medications. Her night time insulin dosages come down. She has a new diagnosis of uterine cancer and has been getting chemotherapy & is due to have TAHSO. [facility] Medical History DVT (deep venous thrombosis) Pulmonary embolism Hyperlipemia HTN (hypertension) IDDM (insulin dependent diabetes mellitus) Breast cancer, right Surgical History History of reduction surgery of left breast H/O mastectomy Social History Alcohol intake: never Patient Tobacco Use Status: Never used Tobacco Physical Exam Vital Signs: Last Vital Signs Pulse 98 11/06/23 14:06 BP 92/60 11/06/23 14:06 Pulse Ox 99 11/06/23 14:06 Oxygen Delivery Method Room Air 11/06/23 14:06 BMI result Body Mass Index 36.7 Const General: comfortable and no acute distress Orientation/consciousness: patient oriented x3 HEENT Head: Yes normocephalic Mouth: Normal oral and palatal mucosa present Eyes EOM: EOMs intact bilaterally Neck Neck: Yes supple Resp Auscultation: clear to auscultation bilaterally Cardio Jugular venous distension: no JVD Rate: regular rate GI Palpation (GI): Soft to palpation Auscultation: normal bowel sounds General: Yes no CVA tenderness Back/Spine/Pelvis Back: no CVA tenderness Skin General skin exam: no rashes or lesions noted Neuro General: patient oriented x3 and moves all extremities Extrem General: Yes no pedal edema Assessment & Plan Assessment & Plan (1) HTN (hypertension): Code(s): I10 - Essential (primary) hypertension Category: Medical Qualifiers: Hypertension type: primary hypertension Qualified Code(s): I10 - Essential (primary) hypertension (2) CKD stage 3 due to type 2 diabetes mellitus: Code(s): E11.22 - Type 2 diabetes mellitus with diabetic chronic kidney disease; N18.30 - Chronic kidney disease, stage 3 unspecified Category: Medical Plan Alejandra has history chronic kidney disease from diabetes mellitus. She has a diabetic nephropathy. Her proteinuria is currently acceptable. She was prescribed Jardiance but could not continue due to its cost. Her blood pressure is low . I reduced her lisinopril to 10 mg daily. Her blood sugar controls are better. She needs to lose weight . She should avoid nonsteroidal anti-inflammatory medications. She should maintain good hydration. I will ordered for all blood work and urine studies. All questions were answered. Orders: Orders Blood Urea Nitrogen Today E11.22 - Type 2 diabetes mellitus with diabetic chronic kidney disease, I10 - Essential (primary) hypertension, N18.30 - Chronic kidney disease, stage 3 unspecified Electrolytes Today E11.22 - Type 2 diabetes mellitus with diabetic chronic kidney disease, I10 - Essential (primary) hypertension, N18.30 - Chronic kidney disease, stage 3 unspecified Calcium Today E11.22 - Type 2 diabetes mellitus with diabetic chronic kidney disease, I10 - Essential (primary) hypertension, N18.30 - Chronic kidney disease, stage 3 unspecified Creatinine Today E11.22 - Type 2 diabetes mellitus with diabetic chronic kidney disease, I10 - Essential (primary) hypertension, N18.30 - Chronic kidney disease, stage 3 unspecified Protein Creatinine Ratio, Ur Today E11.22 - Type 2 diabetes mellitus with diabetic chronic kidney disease, I10 - Essential (primary) hypertension, N18.30 - Chronic kidney disease, stage 3 unspecified Coding Level of Care Code Est Pt Level 4 (23337) Diagnoses Primary hypertension I10 Hypertension type: primary hypertension CKD stage 3 due to type 2 diabetes mellitus E11.22; N18.30
[2023-11-06 14:06] VITALS: BP 92/60; PULSE 98; O2SAT 99; BMI 36.7
== END 2023-11-06 14:34 | disposition home or self-care (01) ==
PROVIDERS: PCP Family Medicine; Visit Provider Internal Medicine Nephrology
DX: I10 Essential (primary) hypertension (principal); E11.22 Type 2 diabetes mellitus with diabetic chronic kidney disease; N18.30 Chronic kidney disease, stage 3 unspecified
CPT/HCPCS: 99214

== ENCOUNTER → 2023-11-06 13:50 | Outpatient (BNVA) | payer MEDICARE, SELFPAY | PROVIDERS: PCP Family Medicine; Visit Provider Internal Medicine Nephrology | DX: E11.22 Type 2 diabetes mellitus with diabetic chronic kidney disease (principal); E11.21 Type 2 diabetes mellitus with diabetic nephropathy; I12.9 Hypertensive chronic kidney disease with stage 1 through stage 4 chronic kidney disease, or unspecified chronic kidney disease; N18.30 Chronic kidney disease, stage 3 unspecified; R80.9 Proteinuria, unspecified | CPT/HCPCS: 99212 ==

== ENCOUNTER 2024-02-11 13:58 | Outpatient (REF) | payer MEDICARE, SELFPAY ==
[2024-02-11 14:52] LABS: Anion Gap 13 (12-20); Blood Urea Nitrogen 23 mg/dL (9-16); Calcium 9.8 mg/dL (8.4-10.2); Carbon Dioxide 21 mmol/L (22-29); Chloride 110 mmol/L (96-108); Estimated Glomerular Filt Rate 46; Potassium 4.4 mmol/L (3.3-5.1); Sodium 140 mmol/L (135-145)
== END 2024-02-11 13:59 | disposition home or self-care (01) ==
LOC: HO.LAB 13:58
PROVIDERS: PCP Family Medicine; Visit Provider Internal Medicine Nephrology
DX: E11.22 Type 2 diabetes mellitus with diabetic chronic kidney disease (principal); N18.30 Chronic kidney disease, stage 3 unspecified; I10 Essential (primary) hypertension
CPT/HCPCS: 36415; 80051; 82310; 82565; 84520

== ENCOUNTER 2024-02-12 13:53 | Outpatient (AMB) | payer MEDICARE, SELFPAY ==
--- NOTE | 2024-02-12 14:11 | HO.NEPHOV_ITS ---
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 She has diabetic nephropathy. Her blood sugar is better. She follows closely with Dr. Mcghee .She had been prescribed Jardiance in the past but could not afford the cost. She has not had any hypoglycemias. Her blood pressure is well controlled. She did not have any urinary infections. She keeps up with good hydration and avoid nonsteroidal anti- inflammatory medications . she denies any chest pain, shortness of breath, proximal nocturnal dyspnea, orthopnea or pedal edema. She is compliant with her medications. Her night time insulin dosages come down. She has uterine cancer and had been getting chemotherapy & had SO but uterus is still in situ. She has a woumd vac post abdominal surgery. She has lost significant weight. She has neuropathy post chemo. [facility] Medical History DVT (deep venous thrombosis) Pulmonary embolism Hyperlipemia HTN (hypertension) IDDM (insulin dependent diabetes mellitus) Breast cancer, right Surgical History History of reduction surgery of left breast H/O mastectomy Social History Alcohol intake: never Patient Tobacco Use Status: Never used Tobacco Physical Exam Vital Signs: Last Vital Signs Pulse 94 02/12/24 14:13 BP 102/60 02/12/24 14:13 Pulse Ox 97 02/12/24 14:13 Oxygen Delivery Method Room Air 02/12/24 14:13 BMI result Body Mass Index 33.8 Const General: comfortable and no acute distress Orientation/consciousness: patient oriented x3 HEENT Head: Yes normocephalic Mouth: Normal oral and palatal mucosa present Eyes EOM: EOMs intact bilaterally Neck Neck: Yes supple Resp Auscultation: clear to auscultation bilaterally Cardio Jugular venous distension: no JVD Rate: regular rate GI Other: Has a wound vac Palpation (GI): Soft to palpation Auscultation: normal bowel sounds General: Yes no CVA tenderness Back/Spine/Pelvis Back: no CVA tenderness Skin General skin exam: no rashes or lesions noted Neuro General: patient oriented x3 and moves all extremities Extrem General: Yes no pedal edema Results Reviewed Nephrology Results: Hgb 10.9 g/dl (12.0-16.0) L 05/09/23 WBC 6.2 X10*3/uL (4.8-10.8) 05/09/23 Plt Count 222 X10*3/uL (160-400) 05/09/23 Sodium 140 mmol/L (135-145) 02/11/24 Potassium 4.4 mmol/L (3.3-5.1) 02/11/24 Chloride 110 mmol/L (96-108) H 02/11/24 Carbon Dioxide 21 mmol/L (22-29) L 02/11/24 BUN 23 mg/dL (9-16) H 02/11/24 Creatinine 1.17 mg/dL (0.5-1.4) 02/11/24 Calcium 9.8 mg/dL (8.4-10.2) 02/11/24 Phosphorus 2.6 mg/dL (2.7-4.5) L 09/27/20 Urine Protein Negative mg/dL (Neg-Trace) 05/09/23 Urine Creatinine 106.96 mg/dL 04/10/23 Protein/Creatinin Ratio 0.29 (<0.2) H 04/10/23 Assessment & Plan Assessment & Plan (1) CKD stage 3 due to type 2 diabetes mellitus: Code(s): E11.22 - Type 2 diabetes mellitus with diabetic chronic kidney disease; N18.30 - Chronic kidney disease, stage 3 unspecified Category: Medical (2) HTN (hypertension): Code(s): I10 - Essential (primary) hypertension Category: Medical Qualifiers: Hypertension type: primary hypertension Qualified Code(s): I10 - Essential (primary) hypertension Plan Alejandra has history chronic kidney disease from diabetes mellitus. She has a diabetic nephropathy. Her proteinuria is currently acceptable. She was prescribed Jardiance but could not continue due to its cost. She can continue lisinopril 10 mg daily. Her blood sugar controls are better. She should avoid nonsteroidal anti-inflammatory medications. She should maintain good hydration. I will ordered for all blood work and urine studies. All questions were answered. Orders: Orders Creatinine Today E11.22 - Type 2 diabetes mellitus with diabetic chronic kidney disease, I10 - Essential (primary) hypertension, N18.30 - Chronic kidney disease, stage 3 unspecified Blood Urea Nitrogen Today E11.22 - Type 2 diabetes mellitus with diabetic chronic kidney disease, I10 - Essential (primary) hypertension, N18.30 - Chronic kidney disease, stage 3 unspecified Electrolytes Today E11.22 - Type 2 diabetes mellitus with diabetic chronic kidney disease, I10 - Essential (primary) hypertension, N18.30 - Chronic kidney disease, stage 3 unspecified Calcium Today E11.22 - Type 2 diabetes mellitus with diabetic chronic kidney disease, I10 - Essential (primary) hypertension, N18.30 - Chronic kidney disease, stage 3 unspecified Protein Creatinine Ratio, Ur Today E11.22 - Type 2 diabetes mellitus with diabetic chronic kidney disease, I10 - Essential (primary) hypertension, N18.30 - Chronic kidney disease, stage 3 unspecified Coding Level of Care Code Est Pt Level 4 (25331) Diagnoses CKD stage 3 due to type 2 diabetes mellitus E11.22; N18.30 Primary hypertension I10 Hypertension type: primary hypertension
[2024-02-12 14:13] VITALS: BP 102/60; PULSE 94; O2SAT 97; BMI 33.8
== END 2024-02-12 14:51 | disposition home or self-care (01) ==
PROVIDERS: PCP Family Medicine; Visit Provider Internal Medicine Nephrology
DX: E11.22 Type 2 diabetes mellitus with diabetic chronic kidney disease (principal); N18.30 Chronic kidney disease, stage 3 unspecified; I10 Essential (primary) hypertension
CPT/HCPCS: 99214

== ENCOUNTER → 2024-02-12 13:53 | Outpatient (BNVA) | payer MEDICARE, SELFPAY | PROVIDERS: PCP Family Medicine; Visit Provider Internal Medicine Nephrology | DX: E11.22 Type 2 diabetes mellitus with diabetic chronic kidney disease (principal); I12.9 Hypertensive chronic kidney disease with stage 1 through stage 4 chronic kidney disease, or unspecified chronic kidney disease; N18.30 Chronic kidney disease, stage 3 unspecified; Z79.899 Other long term (current) drug therapy | CPT/HCPCS: 99212 ==

== ENCOUNTER 2024-08-10 14:37 | Outpatient (REF) | payer MEDICARE, SELFPAY ==
--- OUTSIDE RECORDS SUMMARY | 2024-08-10 15:57 | XMS_ITS | Continuity of Care Document ---
Author Organization [facility] ter Address [address] [place] [address]- Care Team Providers Care Tip Scourer Name Role Phone Ilene Arvizu MD Primary Care Physician Encounter 08/06/24 - 08/07/[address] [address] Attending Physician: Not on Staff, Attending MD Referring Physician: Not on Staff, Referring MD Encounter Type: SMRI Allergies, Adverse Reactions, Alerts Substance Criticality Severity Reaction Reaction Severity Status Bee Stings Unable to assess criticality Unknown Active Tape 1 surgical - blisters @ site Active Victoza N,V,D tried 3 times Active glipizide-metformi n gi upset Active 1TEGADERM Immunizations Given and Recorded Vaccine Date Status Refusal Reason SARS-CoV-2(COVID-19)mRNA-LNP vac(feb615) 06/10/23 Recorded influenza virus vaccine, inactivated 06/03/23 Hari rded influenza virus vaccine, inactivated 05/11/22 Hari rded influenza virus vaccine, inactivated 04/14/21 Hari rded influenza virus vaccine, inactivated 04/01/20 Hari rded influenza virus vaccine, inactivated 05/12/19 Hari rded influenza virus vaccine, inactivated 05/07/18 Hari rded pneumococcal 20-valent conjugate vaccine 07/24/22 Recorded [id number] bivalent booster vax 05/22/22 Recorded SARS-CoV-2 (COVID-19) mRNA-1273 vaccine 06/14/21 R ecorded SARS-CoV-2 (COVID-19) mRNA BNT-162b2 vac 11/03/20 Recorded SARS-CoV-2 (COVID-19) mRNA BNT-162b2 vac 10/13/20 Recorded tetanus/diphtheria/pertussis, acel(Tdap) 02/03/20 Recorded Medications amLODIPine 10 mg oral tablet 10 mg, 1, tablet, By Mouth, Daily, # 30 tablet, Refills 2, Tot. Refills 2, Maintenance, 08/03/24 11:36:00 AM EST, Route to Pharmacy Electronically, [facility]/pharmacy #[id number], Partial fill upon patient requestif the prescription is for a schedule II opioid drug., 160.8, cm, 07/29/24 15:29:00 EST, Height, 101.6, kg, 07/29/24 11:26:00 EST, Dry Weight Start Date: 08/03/24 Status: Ordered Quantity: 30.0 Unit: tablet Repeat number: 3 Aspirin = 81 mg, By Mouth, Daily, 0 Refills, Maintenance, 10/04/14 10:51:41 AM EDT Start Date: 10/04/14 Status: Ordered Repeat number: 1 atorvastatin 80 mg oral tablet 1 tablet = 80 mg, By Mouth, Daily at bedtime, 0 Refills, Maintenance, 10/04/14 10:51:12 AM EDT Start Date: 10/04/14 Status: Ordered Repeat number: 1 FreeStyle Froylan reader FreeStyle Froylan reader, See Instructions, # 1 each, Refills 0, Tot. Refills 0, Maintenance, Use to read Froylan Sensor 5x daily, can also use to test BG 2x daily, DxE10.9 [facility]# [id number], 09/22/20 9:58:00 AM EDT, Compound, 163, cm, 03/23/20 15:19:00 EDT, Height Start Date: 09/22/20 Status: Ordered Quantity: 1.0 Unit: each Repeat number: 1 FreeStyle Froylan sensors FreeStyle Froylan sensors, See Instructions, # 3 each, Refills 8, Tot. Refills 8, Maintenance, changeevery 14 days, (3 each/sensors/month), E11.9, 10/30/21 12:47:00 PM EDT, Compound, 163, cm, 12/12/20 13:32:00 EDT, Height Start Date: 10/30/21 Status: Ordered Quantity: 3.0 Unit: each Repeat number: 9 FREESTYLE PREC KIMBERLY TEST STRIPS FREESTYLE PREC KIMBERLY TEST STRIPS, See Instructions, # 100 Unknown, 10 Refills, Maintenance, USE DIRECTED 4 TIMES A DAY, 01/21/23 9:10:00 AM EDT, 163, cm, 11/30/21 9:39:00 EDT, Height Start Date: 01/21/23 Status: Ordered Quantity: 100.0 Unit: Unknown Repeat number: 1 gabapentin 300 mg oral capsule See Instructions, TAKE 2 CAPSULES EVERY MORNING AND TAKE 3 CAPSULES EVERY DAY AT BEDTIME, # 150 capsule, Refills 2, Maintenance, 06/25/24 5:46:00 PM EST, Instructions Replace Required Details, Route to Pharmacy Electronically, [id number], 160.8, cm, 06/17/24 8:38:00 EST, Height, 97.1, kg, 05/27/24 8:23:00 EST, Dry Weight Start Date: 06/25/24 Status: Ordered Quantity: 150.0 Unit: capsule Repeat number: 1 HumaLOG KwikPen 200 units/mL (Concentrated) subcutaneous solution See Instructions, INJECT SUBCUTANEOUSLY 3 TIMES DAILY WITH MEALS, MAX DAILY DOSE 90 UNITS, # 42 Unknown, 2 Refills, Maintenance, 07/13/24 1:39:00 PM EST, [id number], 160.8, cm, 07/08/24 14:12:00 EST, Height, 97.1, kg, 05/27/24 8:23:00 EST, Dry Weight Start Date: 07/13/24 Status: Ordered Quantity: 42.0 Unit: Unknown Repeat number: 1 hydrocortisone 2.5% topical cream 1 application, Topically, 3 times a day, # 28 Gm, 0 Refills, Maintenance, 01/29/24 12:19:00 PM EDT, Cream, [facility]/pharmacy #[id number], Partial fill upon patient request if the prescription is for a schedule II opioid drug., 1 application Topically 3 times a day, 160, cm, 01/21/24 15:42:00 EDT, Height, 89.6,kg, 01/28/24 13:20:00 EDT, Dry Weight Start Date: 01/29/24 Status: Ordered Quantity: 28.0 Unit: g Repeat number: 1 Lantus Solostar Pen 100 units/mL subcutaneous solution See Instructions, INJECT 60 UNITS SUBCUTANEOUSLY AT BEDTIME NO FURTHER REFILLS WITHOUT FOLLOW UP APPOINTMENT, # 30 Unknown, 0 Refills, Maintenance, 12/03/23 1:15:00 PM EDT, [id number], 160, cm, 12/01/23 4:27:00 EDT, Height, 100, kg, 12/01/23 7:35:00 EDT, Dry Weight Start Date: 12/03/23 Status: Ordered Quantity: 30.0 Unit: Unknown Repeat number: 1 lidocaine-prilocaine 2.5%-2.5% topical cream See Instructions, apply to located within [facility] site 30-60min prior to each chemotherapy session, # 30 Gm, 2 Refills, Maintenance, 07/30/23 4:21:00 PM EST, [facility]/pharmacy #[id number], Partial fill upon patient request if the prescription is for a schedule II opioid drug., apply to [facility] 30-60min prior to eachchemotherapy session, 159.2, cm, 07/30/23 15:39:00 EST, Height, 113, kg, 07/30/23 15:38:00 EST, DryWeight Start Date: 07/30/23 Status: Ordered Quantity: 30.0 Unit: g Repeat number: 3 lisinopril 20 mg oral tablet = 10 mg, By Mouth, Daily, 0 Refills, Maintenance, 10/04/14 10:51:01 AM EDT Start Date: 10/04/14 Status: Ordered Repeat number: 1 Multivitamin 0 Refills, Maintenance, 07/04/23 1:24:00 PM EST, Partial fill upon patient request if the prescription is for a schedule II opioid drug. Start Date: 07/04/23 Status: Ordered Repeat number: 1 Pen Comfort, 32 G x 4 mm BD Ultra Fine III See Instructions, # 300 each, Refills 2, Tot. Refills 2, Maintenance, e11.9 Use 3 times daily with Lantus and Humalog. 90 days, 10/30/21 12:47:00 PM EDT, Compound, 163, cm, 12/12/20 13:32:00 EDT, Height Start Date: 10/30/21 Status: Ordered Quantity: 300.0 Unit: each Repeat number: 3 Vitamin B-12 100 mcg oral tablet 1, tablet, By Mouth, Daily, # 90 tablet, Refills 1, Maintenance, 05/17/24 10:28:00 PM EST, Route toPharmacy Electronically, [facility], 160.8, cm, 05/06/24 10:37:00 EST, Height, 86.5, kg, 05/06/24 9:44:00 EST, Dry Weight Start Date: 05/17/24 Status: Ordered Quantity: 90.0 Unit: tablet Repeat number: 1 Problem List Condition Confirmation Course Effective Dates Status H ealth Status Informant Acute cystitis Confirmed Active Antineoplastic chemotherapy induced anemia Confirmed Active Breast reconstruction 1 Confirmed Active Elevated CA-125 Confirmed Active Diabetes mellitus type 2 Confirmed Active Dupuytren's disease of palm Confirmed Active Dyspnea on exertion Confirmed Active Maintenance antineoplastic chemotherapy Confirmed Active Hyperlipidemia Confirmed Active HTN (hypertension) Confirmed Active Leukocytes in urine Confirmed Active Breast cancer Confirmed Active Cancer of right fallopian tube Confirmed Active Chemotherapy-induced nausea Confirmed Active Pulmonary embolism Confirmed Active Renovascular hypertension Confirmed Active Severe obesity (BMI 35.0-39.9) with comorbidity Confirmed Active Wound dehiscence Confirmed Active 1Pt with hx of breast cancer, underwent reconstruction with tissue custom stock maker and permanent implant onright side Results Radiology Reports * Exam Date Time Procedure Performing Provider Status 08/06/24 4:[address] PET Auth (Ilana morrow) Notes: (CT PET) Reason For Exam: ovarian cancer with rising CA125;ovarian cancer with rising CA125 RESULT: CT PET [facility] PET/CT Imaging VISIT NUMBER :[id number] Patient Name: Alejandra Schulz Date of : 1960 Date of Exam: 08-06-2024 Referring Physician: [facility] [address] [place] [address] Exam: PT Skull Base to Mid Thigh CPT 77090 Room Description: [facility] Pt4 EXAM: PET-CT History: 64-year-old female with 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 Rising CA-125 levels. Comparison: CT abdomen pelvis with oral and IV contrast dated 06/12/2024, 03/19/2024 and 11/29/2023. PET technique: The study was performed after the intravenous injection of 10.18 mCi F-18-FDG. Positron emission tomography and CT were performed from the base of the brain to the midthighs with axial, coronal, sagittal, and 3-D reformats. The blood glucose at the time of injection was 149 mg/dL. Imaging was performed 55 minutes after injection. SUV was normalized by body mass Findings: Mediastinal blood pool SUV max and mean: 3.4, 2.7 Liver SUV max and mean: 4.8, 2.5 Head/neck: * No abnormal FDG uptake in the head/neck. * No CT evidence of cervical lymphadenopathy. * Atherosclerotic calcification of bilateral carotid bulbs. Chest: * Right-sided Port-A-Cath terminates at the cavoatrial junction. * No hypermetabolic mediastinal or hilar axillary lymphadenopathy. * No abnormal FDG uptake in the lungs. * Mild bilateral dependent atelectasis. 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 * No pleural effusion. * Calcified granuloma in the left lower lobe. * Mild cardiomegaly. Abdomen/pelvis: * No abnormal FDG uptake in the liver, spleen, adrenal glands, pancreas, gallbladder, with normal uptake and excretion of the kidneys and urinary bladder. * There is focal increased FDG uptake in ill-defined partially calcified soft tissue anterosuperior to the uterine fundus, axial images 136-138, with maximum SUV up to 5.6, measuring approximately 4 x 1.3 x 1 cm, based on the FDG uptake. This is suggestive of peritoneal metastasis. * Faint FDG uptake along the anterior wall of the transverse colon, axial images 101 and 102, with maximum SUV up to 4.6, in the region of the mild soft tissue fullness seen on the prior diagnostic CT images, suspicious for mild residual omental metastasis.. * No hypermetabolic mesenteric or retroperitoneal lymph nodes noted. Few prominent retroperitoneal lymph nodes, measuring up to 0.8 cm in short axis, similar to the prior study, with no increased FDG uptake, for example seen on axial image 114, and the left para-aortic region measuring 0.9 cm in short axis and Interaortocaval Lymph Node Measuring 0.8 Cm in Short [place], on Axial Image 92. * Incidental findings include mild atherosclerotic vascular calcifications, mild right renal atrophy, compared to the left and few scattered colonic diverticula as well as tiny splenic calcified granulomas. Also noted is a retroaortic left renal vein. Osseous/cutaneous structures: * No abnormal FDG uptake in the visualized osseous structures to suspect osseous metastasis. * Post right mastectomy with pain diffuse FDG uptake along the surgical bed, maximum SUV up to 2.4, likely related to postsurgical changes. Impression: Mild increased FDG uptake along the soft tissue thickening along the anterosuperior aspect of the uterine fundus, suggestive of residual/recurrent peritoneal metastasis. Mild FDG uptake along the anterior wall of the transverse colon in the central abdomen, in the region of the mild soft tissue fullness seen on the prior diagnostic CT images, suspicious for mild residual omental metastasis.. Stable prominent retroperitoneal lymph nodes with no increased FDG uptake, likely reactive versus less likely metastatic. 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 Electronically Signed By: Daniela Garcia MD Dictated By: Not on Staff , ROMAN HERNANDEZ Dictated Date/Time: 08/07/24 9:38 am Reviewed By: Not on Staff , ROMAN HERNANDEZ Signed By: Not on Staff , ROMAN HERNANDEZ Signed Date/Time: 08/07/24 9:38 am Transcribed By: TS Transcribed Date/Time: 08/07/24 9:38 am Social History Social History Type Response Smoking Status Never smoker entered on: 09/06/16 Sex Sex Representation Female (finding) Patient Care team information Care Team Personnel Name: Ilene Arvizu MD Position: [facility] Outreach Member Role: PCP Address: [address] [place] [address] [address] [facility] [place], [place] [address] Telecom: Name: Janice Zepeda RN Position: [facility] RN Member Role: Primary Care Nurse Name: Lorraine Blanc RN Position: [facility] RN Member Role: Primary Care Nurse Name: Abel Rob RN Position: [facility] RN Member Role: Primary Care Nurse Name: Rosario Andino RN Position: [facility] Onco RN Member Role: Primary Care Nurse Name: Abeba Franco RN Position: [facility] Onco RN Member Role: Primary Care Nurse Name: Baylee Mitchell RN Position: [facility] Onco RN Member Role: Primary Care Nurse Name: Ivan Lorenz MD Position: [facility] Physician - Oncology Member Role: Lifetime Consulting Physician Address: [address] [place] [address] [place], [place] [address] Telecom: Name: Eva Sánchez RN Position: S RN Member Role: Primary Care Nurse Name: Jay Vidales RN Position: [facility] Onco RN Member Role: Primary Care Nurse Name: Lyndsay Renee RN Position: S Onco RN Member Role: Primary Care Nurse Name: Milly Barajas NP Position: [facility] Associate Professional Member Role: Primary Care Nurse Address: [address] [place] [address] [address] [facility] [address] Telecom: Name: Nathaniel Vergara RN Position: S RN Member Role: Primary Care Nurse Name: Beatriz Love RN Position: [facility] Onco RN Member Role: Primary Care Nurse Name: Xi Johnson RN Position: [facility] RN Member Role: Primary Care Nurse Care Team Related Persons Name: SHEMAR SCHULZ Insurance Providers Guarantor name: ALEJANDRA SCHULZ Health Plan Information #: 1 Payer: [facility] Member Number: NA Policy Number: NA Group Number: NA
--- OUTSIDE RECORDS SUMMARY | 2024-08-10 15:57 | XMS_ITS | Patient Health Record ---
Author Organization [facility] Address [address] [place] [address] Care Team Providers Care Oral Surgery Physician Name Role Phone Jovanni Ortiz MD Primary Care Provider Lg Mixon [phone] ALLERGIES Allergen (clinical drug ingredient) Drug/Non Drug Allergy documented on EMR Reaction Allergy Type Onset Date Status metformin Metformin Unknown Drug Allergy Active liraglutide Victoza Unknown Drug Allergy Activ e REASON FOR REFERRAL No Information MEDICATIONS Medication SIG (Take, Route, Frequency, Duration) Notes Start Date End Date Status HumaLOG KwikPen 200 UNIT/ML Subcutaneous for 90 Active Lantus Active Dicyclomine HCl 10 MG 1 or 2 capsules Or ally Every 6 hours as needed for abdominal cramps/bloating/discomfo rt for 30 day(s) 05/01/2023 Active Januvia Not-Taking Lisinopril Active Multivitamin - 1 tablet Orally Once a day for 30 day(s) Active Low-Dose Aspirin Act marcos Atorvastatin Calcium Active IMMUNIZATIONS Vaccine Route Administration Date Status Comme nts Influenza Unknown 03/01/2021 Administered SOCIAL HISTORY Sex Assigned At : Social History Observation Description Sex Assigned At Unknown PROBLEMS Problem Type ICD Code Onset Dates Problem Status W/U Status Risk SNOMED Code Notes Problem Change in bowel habit (R19.4) Active confirmed 719862264 Problem Constipation, unspecified constipation type (K59.00) Active confirmed 39356351 Problem Colon cancer screening (Z12.11) Active confirmed Colon cancer screening (250245174) Problem History of adenomatous polyp of colon (Z86.010) Active confirmed History of adenomatous polyp of colon (154036490) Problem Preprocedural examination (Z01.818) Active confirmed Preprocedural examination (229662130723363) Problem Diverticulosis of colon (K57.30) Active confirmed Diverticulosi s of colon (870250613) PLAN OF TREATMENT Pending Test Test Name Order Date T4 (THYROXINE) 08/02/2016 CBC w DIFF 08/02/2016 TSH RECEPTOR AB 08/02/2016 Future Test Test Name Order Date COLONOSCOPY 08/02/2016 COLONOSCOPY 03/06/2022 Insurance Providers Payer Name Payer Address Payer Phone Subscriber Number Group Number Insured Name Patient Relationship to Insured Coverage Start Date Coverage End Date [facility] [address] [address] [facility] [place] [id number] BALA SCHULZ Self - patient is the insured MEDICAL (GENERAL) HISTORY Medical History History ICD Code Screening colonoscopy 010--neg for polyps,mild diverticulosis, internal hemorrhoids History of right sided breast cancer irina ated with mastectomy in 2006 IDDM-seeing an Engraver Pantograph Hypertension Hyperlipidemia Denies PR,CVA,Lung disease,renal disease Colonoscopy in 10/2016 with a small tubul ar adenoma removed Pulmonary embolus [address] Carney for the kidneys and DM Surgical History Surgery Date(Month/Year) Rght-sided breast cancer treated with ma stectomy in 2006 Left sided breast reduction Right sided breast implant a fter mastectomy-which had to be removed due to infection Ghulam cath for chemotherapy
--- OUTSIDE RECORDS SUMMARY | 2024-08-10 15:57 | XMS_ITS ---
Author Organization [facility] Address [address] [place] [address] Care Team Providers Care Reed Dipper Name Role Phone Jovanni Ortiz MD Primary Care Provider Unavaila Lg Smart [phone] REASON FOR VISIT up date Encounters Encounter Location Date Provider Diagnosis [facility] [address] [place] [address] 08/02/2023 Lg Howard PLAN OF TREATMENT No Information
--- OUTSIDE RECORDS SUMMARY | 2024-08-10 15:57 | XMS_ITS | Clinical Summary ---
Author Organization [facility], Address [address] [place] [address] Phone Care Team Providers Care President And Cmo Name Role Phone Jovanni Ortiz MD Primary Care Provider [phone] Allergies Active Allergy Reactions Criticality Noted Date Comments Adhesive Tape Other (see comments) High 09/30/2020 Blisters Ok with steri strip, bandaid and paper tape Bee Venom Swelling,Other (see comments) High 09/30/2020 Glipizide-Metformin Hcl Medium 12/27/2021 Other reaction(s): gi upset Denies allergy to glipizide Liraglutide Nausea And Vomiting High 10/31/2017 Other reaction(s): N,V,D tried 3 times Metformin Nausea And Vomiting Medium 10/31/2017 Medications aspirin (ST BARRY) 81 MG EC tablet Take 1 tablet by mouth 1 (one) time each day Active atorvastatin (LIPITOR) 80 MG tablet Take 1 tablet by mouth 1 (one) time each day Active insulin glargine (Lantus) 100 UNIT/ML injection Inject 70 Units under the skin every night Active insulin lispro (HumaLOG) 100 UNIT/ML injection Inject 35 Units under the skin 3 (three) times a day before meals Active Multiple Vitamin (MULTIVITAMIN ADULT PO) Take 1 tablet by mouth 1 (one) time each day Active lisinopril 10 MG tablet TAKE 1 TABLET BY MOUTH TWICE A DAY 180 tablet 3 3 Active oxyCODONE (ROXICODONE) 5 MG immediate release tablet Take 5 mg by mouth every 6 (six) hours if needed 4 Active senna (SENOKOT) 8.6 MG tablet TAKE 2 TABLETS BY MOUTH DAILY AT BEDTIME NEEDED FOR CONSTIPATION Active Active Problems Problem Noted Date Diagnosed Date Malignant tumor of breast 07/19/2023 Pulmonary embolism 07/19/2023 Renovascular hypertension 07/19/2023 Severe obesity 07/19/2023 Change in bowel habit 10/10/2022 Constipation 10/10/2022 Diverticulosis of colon 10/10/2022 Encounter for other preprocedural examination History of adenomatous polyp of colon 10/10/2022 Screening for malignant neoplasm of colon 2022 Mammoplasty 12/27/2021 Overview (12/27/2021): Pt with hx of breast cancer, underwent reconstruction with tissue sales and service representative and permanent implant on right side Tubular adenoma of colon 07/22/2021 Hypertension 04/07/2021 Stage 3a chronic kidney disease 09/30/2020 Hypertensive renal disease 09/30/2020 Type 2 diabetes mellitus with diabetic nephropat hy 09/30/2020 Essential hypertension 05/07/2018 Hyperlipidemia 10/31/2017 Renal insufficiency 10/31/2017 Type 2 diabetes mellitus 10/31/2017 Resolved Problems Problem Noted Date Diagnosed Date Resolved Date Dupuytren's contracture 05/12/2019 04/0 08/2020 Fibromyalgia 11/04/2018 09/30/2020 History of malignant neoplasm of breast 05/07/2018 09/30/2020 Deep venous thrombosis 10/31/201709/30 H/O: pulmonary embolus 10/31/201709/30 Malignant neoplasm of right female breast 03/18/2017 09/30/2020 Immunizations Name Administration Dates Next Due Influenza (IM) Preservative Free 04/10/2016,03/31 Influenza Split Preservative Free ID 06/10/2013 Influenza TIV (IM) 04/13/2014,04/10/2011 Influenza, Quadrivalent, Pre servative Free 05/11/2022,04/14/2021,04/01/2020,2018,05/07/2018 Influenza, Unspecified 04/01/2009 Pfizer SARS-COV-2 11/03/2020,10/13/2020 Tdap 02/03/2020 Family History Medical History Relation Comments Hypertension Father Hypertension Sibling Relation Status Comments Father Alive Mother Alive Sibling Social History Tobacco Use Types Packs/Day Years Used Date Smoking Tobacco: Never Smokeless Tobacco: Never Tobacco Cessation:Counseling Given: Not Answered Alcohol Use Standard Drinks/Week Comments Yes 0 (1 standard drink = 0.6 oz pur e alcohol) very rarely Comments Unknown Sex and Gender Information Value Date Recorded Sex Assigned at Not on file Legal Sex Female 5:00 PM EST Gender Identity Not on file Sexual Orientation Not on file Last Filed Vital Signs Vital Sign Reading Time Taken Comments Blood Pressure 149/82 07/19/2023 10:56 AM EST Pulse 91 07/19/2023 10:56 AM EST Temperature 36.7 ??C (98.1 ??F) 07/19/2023 10:[address] Respiratory Rate 16 07/19/2023 10:56 AM EST Oxygen Saturation 95% 07/19/2023 10:56 AM EST Inhaled Oxygen Concentration - - Weight 113 kg (250 lb) 07/19/2023 10:56 AM EST Height 162.6 cm (5' 4 ) 07/19/2023 10:56 AM EST Body Mass Index 42.91 07/19/2023 10:56 AM EST Plan of Treatment Health Maintenance Due Date Last Done Comments Breast Cancer Screening 1960 Pneumococcal Vaccine: 65+ Years (1 of 2 - PCV) 01/17/1966 Colorectal Cancer Screening: Annual FOBT 2007 Colorectal Cancer Screening: Colonoscopy 2007 Colorectal Cancer Screening: Sigmoidoscopy 2007 Diabetes: Hemoglobin A1C 07/30/2020 Diabetes: Ophthalmology Exam 07/30/2020 Diabetes: Pedal Pulse Checked 07/30/2020 Diabetes: Sensory Foot Exam 07/30/2020 Diabetes: Visual Foot Exam 07/30/2020 Influenza Vaccine (#1) 2024 2, 04/14/2021, 04/01/2020, Additional history exists Hepatitis B Vaccine Aged Out No longe r eligible based on patient's age to complete this topic Insurance [facility] Care Teams President And Cmo Relationship Specialty Start Date End Date Jovanni Ortiz MD [facility] [address] [place] [address] PCP - General Internal Medicine 07/05/23
--- OUTSIDE RECORDS SUMMARY | 2024-08-10 15:57 | XMS_ITS | Clinical Summary ---
Author Organization [facility] Address [address] [place] [address] Care Team Providers Care City Planning Aide Name Role Phone Jovanni Ortiz MD Primary Care Provider [phone] Allergies No known active allergies Medications Medication Sig Dispensed Refills Start Date End Date Status lisinopril (PRINIVIL,ZESTRIL) tablet 10 mg Take 10 mg by mouth daily. 0 Active atorvastatin (LIPITOR) tablet 80 mg Take 80 mg by mouth daily. 0 Active aspirin 81 MG chewable tablet Chew 81 mg by mouth daily. 0 Active CALCIUM-VITAMIN D PO Take by mouth. 0 Active glipiZIDE (GLUCOTROL) tablet 10 mg Take 10 mg by mouth 2 (two) times a day before breakfast and dinner. 0 Active Insulin Glargine (LANTUS SC) Inject 45 Units under the skin daily. 0 Active Active Problems Problem Noted Date Diagnosed Date Malignant neoplasm of right female breast 2016 Social History Tobacco Use Types Packs/Day Years Used Date Smoking Tobacco: Never Smokeless Tobacco: Never Alcohol Use Standard Drinks/Week Comments No 0 (1 standard drink = 0.6 oz pur e alcohol) Sex and Gender Information Value Date Recorded Sex Assigned at Not on file Gender Identity Not on file Sexual Orientation Not on file Last Filed Vital Signs Vital Sign Reading Time Taken Comments Blood Pressure 115/58 03/18/2017 1:39 PM EDT Pulse 68 03/18/2017 1:39 PM EDT Temperature - - Respiratory Rate - - Oxygen Saturation - - Inhaled Oxygen Concentration - - Weight 109.3 kg (241 lb) 03/18/2017 1:39 PM EDT Height 162.6 cm (5' 4 ) 03/18/2017 1:39 PM EDT Body Mass Index 41.37 03/18/2017 1:39 PM EDT Plan of Treatment Health Maintenance Due Date Last Done Comments Hepatitis C Screening 1960 COVID-19 Vaccine (#1) 1963 Pneumococcal Vaccine (1 of 2 - PCV) 01/17/1964 Depression Screening 1970 Preventative Health Evaluation 01/17/1976 DTap / Tdap / Td (1 - Tdap) 1977 Shingrix-Zoster Vaccine (1 of 2) 1977 Colon Cancer Screening (Colonoscopy) 2003 Breast Cancer Screening (Mammogram) 01/17/2008 Fall Risk Assessment 2023 Osteoporosis Screening (DEXA Scan) 2023 Influenza Vaccine (#1) 2024 RSV Adult > 60+ Yrs or Pregn ant (1 - 1-dose 75+ series) 2033 Hepatitis B Vaccines Aged Out No long er eligible based on patient's age to complete this topic RSV Ped < 20 months Aged Out No longe r eligible based on patient's age to complete this topic Care Teams City Planning Aide Relationship Specialty Start Date End Date Jovanni Ortiz MD [address] [facility] [address] PCP - General Internal Medicine 03/01/17
--- OUTSIDE RECORDS SUMMARY | 2024-08-10 15:57 | XMS_ITS ---
Author Organization [facility] Address [address] [place] [address] Care Team Providers Care Looseleaf Binder Coverer Name Role Phone Jovanni Ortiz MD Primary Care Provider Unavaila Lg Smart [phone] SCAN Encounters Encounter Location Date Provider Diagnosis [facility] [address] [place] [address] 05/10/2023 Lg Howard PLAN OF TREATMENT No Information
--- OUTSIDE RECORDS SUMMARY | 2024-08-10 15:57 | XMS_ITS | Continuity of Care Document ---
Author Organization [facility] Address [address] [place] [address]- Care Team Providers Care Spinner Box Name Role Phone Ilene Arvizu MD Primary Care Physician Encounter [facility] Date(s): 07/06/24 - 08/05/24 [facility] [address] [place] [id number] Attending Physician: Yemi Lara Admitting Physician: AdmYemi lux Referring Physician: AdmtrYemi Encounter Type: Triage Allergies, Adverse Reactions, Alerts Substance Criticality Severity Reaction Reaction Severity Status Bee Stings Unable to assess criticality Unknown Active Tape 1 surgical - blisters @ site Active glipizide-metformi n gi upset Active Victoza N,V,D tried 3 times Active 1TEGADERM Immunizations Given and Recorded Vaccine Date Status Refusal Reason SARS-CoV-2(COVID-19)mRNA-LNP vac(ewm720) 06/10/23 Recorded influenza virus vaccine, inactivated 06/03/23 Hari rded influenza virus vaccine, inactivated 05/11/22 Hari rded influenza virus vaccine, inactivated 04/14/21 Hari rded influenza virus vaccine, inactivated 04/01/20 Hari rded influenza virus vaccine, inactivated 05/12/19 Hari rded influenza virus vaccine, inactivated 05/07/18 Hari rded pneumococcal 20-valent conjugate vaccine 07/24/22 Recorded [id number] bivalent booster vax 05/22/22 Recorded SARS-CoV-2 (COVID-19) mRNA-1273 vaccine 06/14/21 R ecorded SARS-CoV-2 (COVID-19) mRNA BNT-162b2 vac 11/03/20 Recorded SARS-CoV-2 (COVID-19) mRNA BNT-162b2 [facility] 10/13/20 Recorded tetanus/diphtheria/pertussis, acel(Tdap) 02/03/20 Recorded Medications amLODIPine 10 mg oral tablet 10 mg, 1, tablet, By Mouth, Daily, # 30 tablet, Refills 2, Tot. Refills 2, Maintenance, 08/03/24 11:36:00 AM EST, Route to Pharmacy Electronically, [facility]/pharmacy #[id number], Partial fill upon patient requestif the prescription [...] use to test BG 2x daily, DxE10.9 [facility]# [id number], 09/22/20 9:58:00 AM EDT, Compound, 163, cm, [...] Replace Required Details, Route to Pharmacy Electronically, [id number], 160.8, cm, 06/17/24 8:38:00 EST, Height, 97.1, kg, 05/27/24 8:23:00 EST, Dry Weight Start Date: 06/25/24 Status: Ordered Quantity: 150.0 Unit: capsule Repeat number: 1 HumaLOG KwikPen 200 units/mL (Concentrated) subcutaneous solution See Instructions, INJECT SUBCUTANEOUSLY 3 TIMES DAILY WITH MEALS, MAX DAILY DOSE 90 UNITS, # 42 Unknown, 2 Refills, Maintenance, 07/13/24 1:39:00 PM EST, [facility]ORE [id number], 160.8, cm, 07/08/24 14:12:00 EST, Height, 97.1, kg, 05/27/24 8:23:00 EST, Dry Weight Start Date: 07/13/24 Status: Ordered Quantity: 42.0 Unit: Unknown Repeat number: 1 hydrocortisone 2.5% topical cream 1 application, Topically, 3 times a day, # 28 Gm, 0 Refills, Maintenance, 01/29/24 12:19:00 PM EDT, Cream, [facility]/pharmacy #[id number], Partial fill upon patient request if the [...] 0 Refills, Maintenance, 12/03/23 1:15:00 PM EDT, [facility] STORE [id number], 160, cm, 12/01/23 4:27:00 EDT, Height, 100, kg, 12/01/23 7:35:00 EDT, Dry Weight Start Date: 12/03/23 Status: Ordered Quantity: 30.0 Unit: Unknown Repeat number: 1 lidocaine-prilocaine 2.5%-2.5% topical cream See Instructions, apply to [facility] 30-60min prior to each chemotherapy session, # 30 Gm, 2 Refills, Maintenance, 07/30/23 4:21:00 PM EST, [facility]/pharmacy #[id number], Partial fill upon patient request if the prescription is for a schedule II opioid drug., apply to [facility] 30-60min prior to eachchemotherapy session, 159.2, cm, [...] 07/04/23 Status: Ordered Repeat number: 1 [place], 32 G x 4 mm BD Ultra [...] 05/17/24 10:28:00 PM EST, Route toPharmacy Electronically, [id number], 160.8, cm, 05/06/24 10:37:00 EST, Height, 86.5, [...] of breast cancer, underwent reconstruction with tissue shipmaster and permanent implant onright side Social History Social History Type Response Smoking Status Never smoker entered on: 09/06/16 Sex Sex Representation Female (finding) Patient Care team information Care Team Personnel Name: Ilene Arvizu MD Position: [facility] Outreach Member Role: PCP Address: [address] [place] [address] [address] [facility] [place], [place] [address] Telecom: Name: Janice Zepeda RN Position: [facility] RN Member Role: Primary Care Nurse Name: Lorraine Blanc RN Position: [facility] RN Member Role: Primary Care Nurse Name: Abel Rob RN Position: [facility] RN Member Role: Primary Care Nurse Name: Rosario Andino RN Position: [facility] Onco RN Member Role: Primary Care Nurse Name: Abeba Franco RN Position: [facility] Onco RN Member Role: Primary Care Nurse Name: Baylee Mitchell RN Position: [facility] Onco RN Member Role: Primary Care Nurse Name: Ivan Lorenz MD Position: [facility] Physician - Oncology Member Role: Lifetime Consulting Physician Address: [address] [place] [address] [place], [place] [address] Telecom: Name: Eva Sánchez RN Position: S RN Member Role: Primary Care Nurse Name: Jay Vidales RN Position: [facility] Onco RN Member Role: Primary Care Nurse Name: Lyndsay Renee RN Position: [facility] Onco RN Member Role: Primary Care Nurse Name: Milly Barajas NP Position: [facility] Associate Professional Member Role: Primary Care Nurse Address: [address] [place] [address] [address] [facility] [address] Telecom: Name: Nathaniel Vergara RN Position: S RN Member Role: Primary Care Nurse Name: Beatriz Love RN Position: [facility] Onco RN Member Role: Primary Care Nurse Name: Xi Johnson RN Position: [facility] RN Member Role: Primary Care Nurse Care Team Related Persons Name: SHEMAR SCHULZ Insurance Providers Guarantor name: BALA SCHULZ Health Plan Information #: 1 [facility] Member Number: NA Policy Number: NA Group Number: NA
--- OUTSIDE RECORDS SUMMARY | 2024-08-10 15:57 | XMS_ITS ---
Author Organization [facility] Address [address] [place] [address] Care Team Providers Care Rn Correctional Name Role Phone Jovanni Ortiz MD Primary Care Provider Lg Mixon [phone] Encounters Encounter Location Date Provider Diagnosis [facility] [address] [place] [address] 07/16/2023 Lg Howard PLAN OF TREATMENT No Information
[2024-08-10 16:10] LABS: Anion Gap 11 (12-20); Blood Urea Nitrogen 26 mg/dL (9-16); Calcium 9.5 mg/dL (8.4-10.2); Carbon Dioxide 23 mmol/L (22-29); Chloride 113 mmol/L (96-108); Estimated Glomerular Filt Rate 50; Potassium 5.3 mmol/L (3.3-5.1); Sodium 142 mmol/L (135-145)
[2024-08-10 16:25] LABS: Creatinine Urine 134.78 mg/dL; Protein/Creatinine Ratio, Ur 0.35 (<0.2); Total Protein Urine Random 47 mg/dL (<12)
== END 2024-08-10 14:38 | disposition home or self-care (01) ==
LOC: HO.LAB 14:37
PROVIDERS: PCP Family Medicine; Visit Provider Internal Medicine Nephrology
DX: I12.9 Hypertensive chronic kidney disease with stage 1 through stage 4 chronic kidney disease, or unspecified chronic kidney disease (principal); E11.22 Type 2 diabetes mellitus with diabetic chronic kidney disease; N18.30 Chronic kidney disease, stage 3 unspecified
CPT/HCPCS: 36415; 80051; 82310; 82565; 82570; 84156; 84520

== ENCOUNTER 2024-08-12 13:21 | Outpatient (AMB) | payer OTHER, SELFPAY ==
--- NOTE | 2024-08-12 13:29 | HO.NEPHOV ---
Vital Signs 08/12/24 13:31 Height 5 ft 4 in Weight 224 lb 2 oz BMI 38.5 BP 132/72 Blood Pressure Location Lt brachial Position Sitting Pulse 89 Pulse Source Pulse Oximeter Pulse Oximetry (%) 99 Oxygen Delivery Method Room Air Intake Visit Reasons: CKD/ Conf Public Welfare Director Required: No Accompanied by: Spouse Allergies liraglutide [From Victoza] Allergy (Intermediate, Verified 08/12/24 13:31) Gastrointestinal Upset metformin Allergy (Intermediate, Verified 08/12/24 13:31) Gastrointestinal Upset transparent dressing [Tegaderm] Allergy (Verified 08/12/24 13:31) Blister HPI Comments Details: Alejandra was seen in the office in follow-up of her chronic kidney disease, hypertension proteinuria. She has diabetic nephropathy. Her blood sugar is better. She follows closely with Dr. Mcghee .She had been prescribed Jardiance in the past but could not afford the cost. She has not had any hypoglycemias. Her blood pressure is well controlled. She did not have any urinary infections. She keeps up with good hydration and avoid nonsteroidal anti-inflammatory medications . she denies any chest pain, shortness of breath, proximal nocturnal dyspnea, orthopnea or pedal edema. She is compliant with her medications. She had uterine cancer and had been getting chemotherapy. She has neuropathy post chemo. [facility] Medical History DVT (deep venous thrombosis) Pulmonary embolism Hyperlipemia HTN (hypertension) IDDM (insulin dependent diabetes mellitus) Breast cancer, right Surgical History History of reduction surgery of left breast H/O mastectomy Social History Alcohol intake: never Patient Tobacco Use Status: Never used Tobacco Review of Systems Const All systems reviewed & are unremarkable except as noted in HPI and below Physical Exam Vital Signs: Last Vital Signs Pulse 89 08/12/24 13:31 BP 132/72 08/12/24 13:31 Pulse Ox 99 08/12/24 13:31 Oxygen Delivery Method Room Air 08/12/24 13:31 BMI result Body Mass Index 38.5 Const General: comfortable and no acute distress Orientation/consciousness: patient oriented x3 HEENT Head: Yes normocephalic Mouth: Normal oral and palatal mucosa present Eyes EOM: EOMs intact bilaterally Neck Neck: Yes supple Resp Auscultation: clear to auscultation bilaterally Cardio Jugular venous distension: no JVD Rate: regular rate GI Palpation (GI): Soft to palpation Auscultation: normal bowel sounds General: Yes no CVA tenderness Back/Spine/Pelvis Back: no CVA tenderness Skin General skin exam: no rashes or lesions noted Neuro General: patient oriented x3 and moves all extremities Extrem General: Yes no pedal edema Results Reviewed Nephrology Results: Hgb 10.9 g/dl (12.0-16.0) L 05/09/23 WBC 6.2 X10*3/uL (4.8-10.8) 05/09/23 Plt Count 222 X10*3/uL (160-400) 05/09/23 Sodium 142 mmol/L (135-145) 08/10/24 Potassium 5.3 mmol/L (3.3-5.1) H 08/10/24 Chloride 113 mmol/L (96-108) H 08/10/24 Carbon Dioxide 23 mmol/L (22-29) 08/10/24 BUN 26 mg/dL (9-16) H 08/10/24 Creatinine 1.10 mg/dL (0.5-1.4) 08/10/24 Calcium 9.5 mg/dL (8.4-10.2) 08/10/24 Urine Protein Negative mg/dL (Neg-Trace) 05/09/23 Urine Creatinine 134.78 mg/dL 08/10/24 Protein/Creatinin Ratio 0.35 (<0.2) H 08/10/24 Assessment & Plan Assessment & Plan (1) CKD stage 3 due to type 2 diabetes mellitus: Code(s): E11.22 - Type 2 diabetes mellitus with diabetic chronic kidney disease; N18.30 - Chronic kidney disease, stage 3 unspecified Category: Medical (2) HTN (hypertension): Code(s): I10 - Essential (primary) hypertension Category: Medical Qualifiers: Hypertension type: primary hypertension Qualified Code(s): I10 - Essential (primary) hypertension (3) Hyperkalemia: Code(s): E87.5 - Hyperkalemia Category: Medical Plan Alejandra has history chronic kidney disease from diabetes mellitus. She has a diabetic nephropathy. Her proteinuria is currently acceptable. She was prescribed Jardiance but could not continue due to its cost. She can continue lisinopril 10 mg daily. Her blood sugar controls are better. She should avoid nonsteroidal anti-inflammatory medications. She should maintain good hydration. I will ordered for all blood work in F/U. C/W current medications. All questions were answered. Orders: Orders Creatinine 3 Months E11.22 - Type 2 diabetes mellitus with diabetic chronic kidney disease, E87.5 - Hyperkalemia, N18.30 - Chronic kidney disease, stage 3 unspecified Electrolytes 6 Months E11.22 - Type 2 diabetes mellitus with diabetic chronic kidney disease, E87.5 - Hyperkalemia, I10 - Essential (primary) hypertension, N18.30 - Chronic kidney disease, stage 3 unspecified Creatinine 6 Months E11.22 - Type 2 diabetes mellitus with diabetic chronic kidney disease, E87.5 - Hyperkalemia, I10 - Essential (primary) hypertension, N18.30 - Chronic kidney disease, stage 3 unspecified Blood Urea Nitrogen 3 Months E11.22 - Type 2 diabetes mellitus with diabetic chronic kidney disease, E87.5 - Hyperkalemia, N18.30 - Chronic kidney disease, stage 3 unspecified Electrolytes 3 Months E11.22 - Type 2 diabetes mellitus with diabetic chronic kidney disease, E87.5 - Hyperkalemia, N18.30 - Chronic kidney disease, stage 3 unspecified Blood Urea Nitrogen 6 Months E11.22 - Type 2 diabetes mellitus with diabetic chronic kidney disease, E87.5 - Hyperkalemia, I10 - Essential (primary) hypertension, N18.30 - Chronic kidney disease, stage 3 unspecified Coding Level of Care Code Est Pt Level 4 (33668) Diagnoses CKD stage 3 due to type 2 diabetes mellitus E11.22; N18.30 Primary hypertension I10 Hypertension type: primary hypertension Hyperkalemia E87.5
[2024-08-12 13:31] VITALS: BP 132/72; PULSE 89; O2SAT 99; BMI 38.5
--- OUTSIDE RECORDS SUMMARY | 2024-08-12 14:41 | XMS_ITS | Patient Health Record ---
Author Organization [facility] Address [address] [place] [address] Care Team Providers Care Lumber Material Handler Name Role Phone Ilene Arvizu Primary Care Provider Jeanne Cole Unavailable [phone] Allergies No Known Allergies Results Component Value Reference Range Notes HEMOGLOBIN A1C (GLYCOHEMOGLO BIN) Reviewed date:07/07/2024 01:02:01 PM Interpretation: Performing Lab: Notes/Report: HEMOGLOBIN A1C % (HH) 7.6 Reason For Referral No Information Medications Medication SIG (Take, Route, Frequency, Duration) Notes Start Date End Date Status Chemo-therapy Active Lisinopril Active Gabapentin Active Aspirin Low Dose Act marcos Atorvastatin Calcium Active Vitamin B 12 Active Multivitamin Active Extra Depth Orthopedic Shoes (1 Pair) with Customized Heat Molded Multidensity Innersoles (3 Pair) as directed Dx: NIDDM/Polyneuropathy (E11.42), Hammertoe Foot Deformity (M20.41,M20.42), Preulcerative Skin Lesion(s) (L85.1 07/07/2024 Active Social History Tobacco Use: Social History Observation Description Date Details (start date - stop date) Never Smoker NA - NA Tobacco Use/Smoking Question Answer Notes Are you a: nonsmoker Additional Findings: Tobacco Non-User Current no n-smoker Alcohol Screen Question Answer Notes Did you have a drink containing alcohol in the p ast year? No Points 0 Interpretation Negative Tobacco use other than smoking: Question Answer Notes Are you an other tobacco user? No Problems Problem Type SNOMED Code ICD Code Onset Dates Problem Status W/U Status Risk Notes Problem Acquired hammer toe of right foot (7213147646940330 ) Other hammer toe(s) (acquired), right foot (M20.41) Active confirmed Problem Acquired hammer toe of left foot (9117348864322538 ) Other hammer toe(s) (acquired), left foot (M20.42) Active confirmed Problem Polyneuropathy due to diabetes mellitus type I (419373379) Type 1 diabetes mellitus with diabetic polyneuropathy (E10.42) Active confirmed Problem Polyneuropathy due to type 2 diabetes mellitus (935160706) Type 2 diabetes mellitus with diabetic polyneuropathy (E11.42) Active confirmed Problem [id number] 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 Vital Signs Blood pressure diastolic 85 mm Hg 07/07/2024 Height 5 ft3in in 07/07/2024 Blood pressure systolic 134 mm Hg 07/07/2024 Weight 220 lbs 07/07/2024 BMI 38.97 kg/m2 07/07/2024 Encounters Encounter Location Date Provider Diagnosis [facility] [address] 07/07/2024 Jeanne Gu Type 2 diabetes asuncion itus with diabetic polyneuropathy E11.42 ; Other hammer toe(s) (acquired), right foot M20.41 ; Tinea unguium B35.1 ; Other hammer toe(s) (acquired), left foot M20.42 ; Drug-induced polyneuropathy G62.0 and Adverse effect of antineoplastic and immunosuppressive drugs, initial encounter T45.1X5A [facility] [address] 03/31/2024 Jeanne Gu Assessments Encounter Date Diagnosis (ICD Code) Assessment Notes Treatment Notes Treatment Clinical Notes Section Notes 07/07/2024 Other hammer toe(s) (acquired), right foot (ICD-10 - M20.41) Patient Educated with: DIABETIC FOOT CARE INSTRUCTIONS. pdf (DIABETIC FOOT CARE INSTRUCTIONS. pdf) 07/07/2024 Type 2 diabetes mellitus with diabetic polyneuropathy (ICD-10 - E11.42) 07/07/2024 Tinea unguium (ICD-1 0 - B35.1) 07/07/2024 Other hammer toe(s) (acquired), left foot (ICD-10 - M20.42) 07/07/2024 Drug-induced polyneuropathy (ICD-10 - G62.0) 07/07/2024 Adverse effect of antineoplastic and immunosuppressive drugs, initial encounter (ICD-10 - T45.1X5A) Plan Of Treatment Next Appt Details Provider Name:Jeanne gonzales, 09/15/2024 03:15:00 PM, [address] [place], [address], Insurance Providers Payer Name Payer Address Payer Phone Subscriber Number Group Number Insured Name Patient Relationship to Insured Coverage Start Date Coverage End Date [facility] [address] [place] [id number] Alejandra Thompson Self - patient is the insured 4 Medical (General) History Medical History History ICD Code Cancer Diabetic Fibromyalgia High Blood Pressure Numbness Measles Mumps Chicken pox Infusions Surgical History Surgery Date(Month/Year) hysterectomy
--- OUTSIDE RECORDS SUMMARY | 2024-08-12 14:41 | XMS_ITS ---
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 Generated for Printi ng/Nohemi/eTransmitting on:?08/12/2024 02:41 PM EST
--- OUTSIDE RECORDS SUMMARY | 2024-08-12 14:41 | XMS_ITS ---
Author Organization [facility] [place] Address [address] [place] [address] Care Team Providers Care Shipyard Helper Name Role Phone Ilene Arvizu Primary Care Provider Jeanne Cole Unavailable [phone] Allergies No Known Allergies REASON FOR VISIT At Risk Footcare, Toe Irritation Medications Medication SIG (Take, Route, Frequency, Duration) Notes Start Date End Date Status Chemo-therapy Active Lisinopril Active Gabapentin Active Atorvastatin Calcium Active Vitamin B 12 Active Aspirin Low Dose Act marcos Multivitamin Active Extra Depth Orthopedic Shoes (1 [...] Problem Status W/U Status Risk Notes Problem Polyneuropathy due to type 2 diabetes mellitus (198186482) Type 2 diabetes mellitus with diabetic polyneuropathy (E11.42) Active confirmed Problem Polyneuropathy due to diabetes mellitus type I (494697509) Type 1 diabetes mellitus with diabetic polyneuropathy (E10.42) Active confirmed Problem Acquired hammer toe of right foot (2786206779659444 ) Other hammer toe(s) (acquired), right foot (M20.41) Active confirmed Problem Acquired hammer toe of left foot (8326868543802227 ) Other hammer toe(s) (acquired), left foot (M20.42) Active confirmed Problem [id number] 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 Vital Signs Height 5 ft3in in 07/07/2024 Weight 220 lbs 07/07/2024 BMI 38.97 kg/m2 07/07/2024 Blood pressure systolic 134 mm Hg 07/07/19 25 Blood pressure diastolic 85 mm Hg 025 Encounters Encounter Location Date Provider Diagnosis [facility] [address] [address] 07/07/2024 Jeanne Brittanie Type 2 diabetes asuncion itus with diabetic polyneuropathy E11.42 ; Other hammer toe(s) (acquired), right foot M20.41 ; Tinea unguium B35.1 ; Other hammer toe(s) (acquired), left foot M20.42 ; Drug-induced polyneuropathy G62.0 and Adverse effect of antineoplastic and immunosuppressive drugs, initial encounter T45.1X5A Assessments Encounter Date Diagnosis (ICD Code) Assessment Notes Treatment Notes Treatment Clinical Notes Section Notes 07/07/2024 Type 2 diabetes mellitus with diabetic polyneuropathy (ICD-10 - E11.42) 07/07/2024 Other hammer toe(s) (acquired), right foot (ICD-10 - M20.41) Patient Educated with: DIABETIC FOOT CARE INSTRUCTIONS. pdf (DIABETIC FOOT CARE INSTRUCTIONS. pdf) 07/07/2024 Tinea unguium (ICD-1 0 - B35.1) 07/07/2024 Other hammer toe(s) (acquired), left foot (ICD-10 - M20.42) 07/07/2024 Drug-induced polyneuropathy (ICD-10 - G62.0) 07/07/2024 Adverse effect of antineoplastic and immunosuppressive drugs, initial encounter (ICD-10 - T45.1X5A) Plan Of Treatment Medication Medication Name Sig Start Date Stop Date Notes Extra Depth Orthopedic Shoes (1 Pair) with Customized Heat Molded Multidensity Innersoles (3 Pair) as directed Dx: NIDDM/Polyneuropathy (E11.42), Hammertoe Foot Deformity (M20.41,M20.42), Preulcerative Skin Lesion(s) (L85.1 07/07/2024 Treatment Notes Assessment Notes Other hammer toe(s) (acquired), right fo ot Patient Educated with: DIABETIC FOOT CARE INSTRUCTIONS.pdf (DIABETIC FOOT CARE INSTRUCTIONS.pdf) Next Appt Details Follow Up: 2 Months, Reason: Provider Name:Jeanne gonzales, 09/15/2024 03:15:00 PM, [address] [place] [address], [phone], Procedure Notes * Category Sub-Category Detail Notes Debride Nail 6-10 Nail debridement Due to the cl inical pathology outlined in the exam findings, performance of this nail treatment is medically necessary as its management by an unskilled/untrained nonprofessional would put this patients foot and overall health at risk. Therefore, debridement to affected nail(s), as described in exam (TA, T1, T2, T3, T4, T5, T6, T7, T8, T9, ), was performed exclusively by the physician of record to reduce/remove overall nail length, girth, thickness, subungual debris, and necrotic tissue, by manual and/or electrical means through the use of a nail nipper and/or dremel-type hand grinder, to a more viable healthy nail plate or bed tissue 6-10 nails in total. Silver nitrate was used for any petechial bleeding as necessary. Definitive antifungal treatment options, both pharmaceutical and surgical, have been reviewed and discussed with the patient. The patient solely prefers the use of intermittent/as needed professional debridement services for their nail condition and understands the need for additional periodic treatments to maintain effectiveness in symptomatic relief - 09956 Keratoma Treatment Parring or Cutting o f Benign Hyperkeratotic Lesion(s) (-56) 2-4 Lesions - Due to the at risk nature of the patients medical condition as documented in the exam findings, performance of this keratoderma treatment is medically necessary as its management by an unskilled/untrained nonprofessional would put this patients foot and overall health at risk. Therefore, the benign hyperkeratotic lesions, ( 4 ) in total, locations as stated and described in the exam ( TA, T5, Plantar Heel(s), B/L ), were pared, and/or cut utilizing a sterile 15 blade, tissue nippers, and/or power dremel instrumentation by the physician of [facility] - [address] Progress Notes * Alejandra SCHULZ RDOB: 8 (64 yo F)Acc No.[id number]:07/07/2024 Progress Notes Patient:?Alejandra SCHULZ Provider:?Jeanne Gu DPM :1960???Age:64 Y???Sex:Female D ate:07/07/2024 Address:[address] [place] [address], [facility] Pcp:Ilene Arvizu Subjective: * Chief Complaints: * ???At Risk FootcareToe Irrit ation * HPI: ???At Risk footcare:?Pt States Last PCP Visit:?Date?06/18/2024 ???Toe pain:?Location:?B/L feet.?Duration:?several years.?Course:?worse.?Aggravated by:?shoes, any pressure.?Treatments:?change in shoes.?Foot Pain:?Nature:?numbness.?Location:?B/L.?Duration:?several months.?Onset:?Chemotherapy and diabetes.?Course:?progressive.?Treatments:?Gabapentin.? * ROS:?General/Constitutional:?Nausea?denies.?Vomiting?denies.?Hunger Thirst?denies.?Loss appetite?denies.?Chills?denies.?Fatigue?denies.?Fever?denies.?Night Sweats?denies.?Unexplained weight loss?denies.?Unexplained weight gain?denies.?HEENTM:?Dentures?denies.?Dizziness?denies.?Glasses/contacts?denies.?Retinopathy?den ies.?Blurred/double vision?denies.?TMJ?denies.?Discharge/drainage?denies.?Implants?denies.?Sore throat?denies.?Dental implants?denies.?Hard of hearing ?denies.?Difficulty chewing/swallowing/speaking?denies.?Nose bleeds?denies.?Sore mouth?denies.?Respiratory:?On O xygen?denies.?Pneumonia/pleurisy?denies.?Bronchitis?denies.?Emphysema?denies.?Co ughing?denies.?Cough blood?denies.?Shortness of breath?denies.?Wheezing?denies.?Cardiovascular:?Pacemaker?denies.?MVP?denies.?WPW?denies.?CHF?denies.?Heart attack?denies.?Septal defect?denies.?Rapid beat?denies.?Chest pain ?denies.?Atrial Fib.?denies.?Murmur/Palpitations?denies.?Gastrointestinal:?Hemorrhoids?denies.?Stomach/Abdominal pain?denies.?Dark blood stool?denies.?Irritable bowel ?denies.?Constipation?denies.?Diarrhea?denies.?Hematology:?Swelling?denies.?Clots?denies.?Varicose Veins?denies.?Bruising?denies.?Bleeding problem?denies.?Genitourinary:?Blood urine?denies.?Frequent/Painfu/urination/bladder control?denies.?Kidney stones?denies.?Infection (UTI)?denies.?Nephropathy?denies.?sex trans dis (STD)?denies.?Prostate?denies.?Musculoskeletal:?Hammertoes?denies.?Bunions?denies.?Back Pain?denies.?Muscle Cramps/ Resting?denies.?Muscle cramps / walking?denies.?Generalized aches and pains?denies.?Weakness?denies.?Integ.:?Casarez?denies.?Scars?denies.?Corns/calluses?denies.?Ingrown nails?denies.?Painful nails?denies.?Open Sores?denies.?Rashes?denies.?Neurologic:?Difficulty sleeping?denies.?Brain disorder?denies.?Numbness?denies.?Balance t rouble?denies.?Confusion?denies.?Fainting/blackouts?denies.?Tingling?denies.?Kulwinder mors?denies.? * Medical History:? * Surgical History:?hysterecto my * Hospitalization/Major Diagno stic Procedure:?Denies Past Hospitalization * Family History:?Mother: dece ased.?Father: , diagnosed with Other malignant neoplasm of unspecified site.?Siblings: diagnosed with Other malignant neoplasm of unspecified site.? * Social History:?Tobacco Use:?Tobacco Use/Smoking?Are you a:?nonsmoker ?Additional Findings: Tobacco Non-User?Current non-smoker ?Tobacco use other than smoking?Are you an other tobacco user??No ???Drugs/Alcohol:?Drugs?Have you used drugs other than those for medical reasons in the past 12 months??No ?Alcohol Screen?Did you have a drink containing alcohol in the past year??No ?Points?0 ?Interpretation?Negative ???Miscellaneous:?Caffeine: yes. ?Children: no. ?Exercise: no. ?Marital status: . 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 * Medications:?TakingChemo-the rapy Lisinopril Atorvastatin Calcium Vitamin B 12 Gabapentin Aspirin Low Dose Multivitamin Medication List reviewed and reconciled with the patientTaking Chemo-therapy Taking Lisinopril Taking Atorvastatin Calcium Taking Vitamin B 12 Taking Gabapentin Taking Aspirin Low Dose Taking Multivitamin Medication List reviewed and reconciled with the patient * Allergies:?N.K.D.A.yes[Aller gies Verified] Objective: * Vitals:?Ht: 5 ft3in, Wt:220, BMI:38.97, Shoe size: 8-8.5, BP:134/85mm Hg, BS: 229, Ht-cm: 160.02 cm, Wt-k.79 kg. * ???Past Orders: ???Lab:HEMOGLOBIN A1C (GLYCO HEMOGLOBIN) (Order Date - 05/01/2024) (Collection Date & Time - 05/01/2024 01:00 PM) ? Value Reference Range ?HEMOGLOBIN A1C % (HH) 7.6 * Examination: ???Ophthalmology Referral: ?DIABETES EYE EXAM?Neurological: ?SENSORY:?(DM/Neuro) Neurological exam demonstrates reduced sharp/dull pin prick discrimination reduced light touch sensation reduced vibration sensation reduced proprioception sensation in a stocking fashion 5.07 monofilament test performed at plantar aspects of 5 varied sites per foot shows sensation plantar aspects absent at Forefoot B/L, Pt relates, numbness, B/L.?Nails: ?NAILS are:?Elongated, overgrown, dystrophic, lytic, greater than 3mm thick, discolored and friable with crumbly malodorous subungual debris, TA, T1, T2, T3, T4, T5, T6, T7, T8, T9.?Dermatologic: ?SKIN FINDINGS:?Skin exam reveals Keratotic lesion(s) located at, Medial plantar, TA, T5, Plantar Heel(s), B/L.?Vascular: ?DP PULSES (B):?2/4, B/L.?PT PULSES (B):?2/4, B/L.?CAPILLARY FILL TIME:?immediate, all digits, B/L.?TROPHIC CONDITION-TEXTURE/ELASTICITY/TURGOR/HAIR GROWTH (B):?decreased, with sparse to absent hair growth.?TEMPERTURE GRADIENT (C):?normal, warm to cool, proximal to distal, B/L.?PIGMENTATION:?pale, B/L.?EDEMA (C):?2/4, B/L.?Orthopedic: ?MUSCLE STRENGTH:?5/5 all groups in a symmetrical fashion, B/L.?DIGITAL DEFORMITIES:?Digital contracture, PIPJ, 2-5 B/L, incompl-reducible to push-up test, no over, nor underlapping,?there is?evidence of shoe producing skin irritation.?FOOTWEAR:?worn, non-supportive, shoe gear properties exacerbate patient's foot/toe deformity.?General Examination: ?GENERAL APPEARANCE:?Reveals a pleasant, alert, well nourished, well- developed, well hydrated individual, who demonstrates proper attention to hygiene/body habitus, and is in no acute distress, Pt serves as own historian for office visit today.?ORIENTED:?person, place, and time.?FOOT EXAM:?Footwear Evaluation? Assessment: * Assessment: 1.?Other hammer toe(s) (acqu ired), right foot - M20.41 (Primary)???Specify :Chronic problem, Worse (4),Rx Management (4)???2.?Type 2 diabetes mellitus with diabetic polyneuropathy - E11.42???3.?Tinea unguium - B35.1???4.?Other hammer toe(s) (acquired), left foot - M20.42???Specify :Chronic problem, Worse (4),Rx Management (4)???5.?Drug-induced polyneuropathy - G62.0???6.?Adverse effect of antineoplastic and immunosuppressive drugs, initial encounter - T45.1X5A??? Plan: * Treatment: * Procedures:?Debride Nail 6-10:?Nail debridement?Due to the clinical pathology outlined in the exam findings, performance of this nail treatment is medically necessary as its management by an unskilled/untrained nonprofessional would put this patients foot and overall health at risk. Therefore, debridement to affected nail(s), as described in exam (TA, T1, T2, T3, T4, T5, T6, T7, T8, T9, ), was performed exclusively by the physician of record to reduce/remove overall nail length, girth, thickness, subungual debris, and necrotic tissue, by manual and/or electrical means through the use of a nail nipper and/or dremel-type hand grinder, to a more viable healthy nail plate or bed tissue 6- 10 nails in total. Silver nitrate was used for any petechial bleeding as necessary. Definitive antifungal treatment options, both pharmaceutical and surgical, have been reviewed and discussed with the patient. The patient solely prefers the use of intermittent/as needed professional debridement services for their nail condition and understands the need for additional periodic treatments to maintain effectiveness in symptomatic relief - 59010.?Keratoma Treatment:?Parring or Cutting of Benign Hyperkeratotic Lesion(s)?(-56) 2-4 Lesions - Due to the at risk nature of the patients medical condition as documented in the exam findings, performance of this keratoderma treatment is medically necessary as its management by an unskilled/untrained nonprofessional would put this patients foot and overall health at risk. Therefore, the benign hyperkeratotic lesions, ( 4 ) in total, locations as stated and described in the exam (?TA,?T5,?Plantar Heel(s),?B/L?), were pared, and/or cut utilizing a sterile 15 blade, tissue nippers, and/or power dremel instrumentation by the physician of record - [id number].? * Procedure Codes:?25266 DEBRI DE NAIL, 6 OR MORE, Modifiers: XS 48120 TRIM SKIN LESIONS, 2 TO 4, Modifiers: XS * Preventive Medicine:? ??Counseling:?Discussion:?-04: Office or other outpatient visit for the evaluation and management of a new patient, which required a medically appropriate history and/or examination and MODERATE level of DECISION MAKING for: 1 OR MORE CHRONIC PROBLEM(S) THATS WORSENING, 2 STABLE CHRONIC PROBLEMS, A NEWLY DIAGNOSED PROBLEM WITH UNCERTAIN PROGNOSIS, AN ACUTE COMPLICATED INJURY WITH MULTIPLE TREATMENT OPTIONS, OR AN ACUTE PROBLEM WITH ACCOMPANYING SYSTEMIC SYMPTOMS, THAT POSE(S) A MODERATE RISK OF MORBIDITY. THIS CONDITION MAY ALSO INCLUDE RX DRUG MANAGEMENT, OR A DECISON FOR MINOR SURGERY. The visit on the day of the encounter encompassed interpreting the data and educating the patient as to the nature of their condition, treatment options available according to their individual PMH, meds, allergies, and overall health/living conditions, as well as any potential risks or complications that may occur from a failure to adhere to, and participate in, the recommended course of therapy. The discussion included a complete verbal, and/or written explanation of the examination results, any x-rays taken, the proposed diagnosis, and outline of the treatment plan. A schedule for future care needs was also explained. The patient verbalized an understanding of the instructions at this time and agreed to be an active participant in their treatment. If the patient should think of any questions or concerns after the visit, I have encouraged the patient to call the office.?Digital Surgery:?Digital surgery was discussed with the patient, We elected to try conservative treatment at the present time, due to the patients medical history and increased asssociated post-operative risks.?Digital Treatment:?HT- I explained to the patient the possible etiologies of Hammertoes, including genetics/foot type/shoegear/activity level/exercise routine and the risks/benefits of all the different treatment options for their pain including: No treatment at all, Rest, Ice, New/supportive/wider/deeper Shoegear, Digital Padding/Strapping/Taping/Bracing/Gel protective sleeves, Foot/Ankle AFO Bracing, Stretching exercises, Deep Tissue Massage, Arch support/shoe inserts with splay metatarsal padding, and Custom orthoses. I insisted that any digital devices be removed daily and not worn overnight for safety. The patient is to carefully examine the toes daily for any skin irritation while using any splinting or padding device. The advantages and disadvantages of each option were discussed and the patients questions re: shoegear, padding, custom vs prefabricated inserts, activity level, and consistency in home treatment regimens for optimal success were answered to their verbally confirmed satisfaction.?Neuritis/Neuropathy:?The patient was counseled on the diagnosis, possible etiologies (including mechanical stress, injury, entrapment, chemotherapy, diabetes, vertebral disk herniation if hx), treatment options, and importance for adherence to recommendations in order to address the patients Neuritis/Neuropathy. The advantages and disadvantages re: Accomidative mechanical support/offloading, Topical vs PO analgesics including aspercream/Voltaren gel/Lidoderm patches/Neurontin/Lyrica along with their potential side effects were discussed with the patient to their satisfaction. Also discussed the use of therapeutic injectable cortisone if needed. Surgical treatment, if considered an option, was discussed as well. If surgery is warranted, we discussed the potential successful outcomes as well as the possible complications such as failure, painful scar, permanent tingling/numbness/neuralgea/or intractable pain. Patient questions re: medication use, dosage, and possible side effects and drug interactions were reviewed and the answers to each understood. If the condition worsens, the patient was instructed to contact the office for an appointment. The patient verbally confirmed a full understanding of the above.?Shoe Gear Counseling:?SHOE Rx - The patient was counseled in great detail on their muscoloskeletal foot and toe deformities which coincided with the dermatological presentations visualized on exam. We discussed how their deformities put the integrity of their feet at risk for potential pedal complications which makes the accomidative diabetic shoes and cutomizable inserts medically necessary. We discussed the different shoe and insert treatment types and options, as well as the important advantages for adhering to regularly wearing these accomidative devices daily. The patient was made aware of the fact that a failure to abide by these recommedations may be deleterious to their foot health as they are able to prevent many pedal complications such as skin irritation, skin ulceration, infection, and even loss of toe/foot/leg/or life. Time was also spent with the patient dispensing and discussing proper diabetic footcare techniques including daily skin moisturization, daily foot inspection for any interruption in skin integrity including open lesions, or sign of infection such as redness/malodor/drainage/swelling. Also discussed and recommended were procedures regarding daily shoe inspection for the presence of internal foreign bodies as well as any visualized irregular shoe or insert wear. Patient questions re: shoes, inserts, and self foot inspections were answered to their satisfaction as the patient verbally confirmed a full understanding of the above information. A Rx for Extra Depth Orthopedic Shoes with 3 pair of custom heat-molded inserts was dispensed.? ??Screening/Special Tests:?Fall Risk?Assessment:?Performed ?Screening:?No falls in the past year ?FALLS: Screening for Future Fall Risk?Have you had two or more falls in the past year??No ?Have you had any falls with injury in the past year??No * Follow Up:?2 Months * Images: * Sign off status: Completed true * Provider:?Jeanne Gu DPM Date:?12/2024 Generated for Diane felix/Nohemi/Balaitting on:?08/12/2024 02:41 PM EST History and Physical Notes * HPI (History of Present Illness) Category Sub-Category Detail Notes Category Not es Toe pain Location: B/L feet Duration: several years Course: worse Aggravated by: shoes, any pressure Treatments: change in shoes At Risk footcare Pt States Last PCP Visit: Date: 4 Foot Pain Nature: numbness Location: B/L Duration: several months Onset: Chemotherapy and rea betes Course: progressive Treatments: Gabapentin Examination Category Sub-Category Detail Notes Category Not es Neurological SENSORY: (DM/Neuro) Neuro logical exam demonstrates reduced sharp/dull pin prick discrimination reduced light touch sensation reduced vibration sensation reduced proprioception sensation in a stocking fashion 5.07 monofilament test performed at plantar aspects of 5 varied sites per foot shows sensation plantar aspects absent at Forefoot B/L, Pt relates, numbness, B/L Dermatologic SKIN FINDINGS: Skin exam reveal s Keratotic lesion(s) located at, Medial plantar, TA, T5, Plantar Heel(s), B/L Orthopedic FOOTWEAR: worn, non-suppor tive, shoe gear properties exacerbate patient's foot/toe deformity DIGITAL DEFORMITIES: Digital contracture , PIPJ, 2-5 B/L, incompl-reducible to push-up test, no over, nor underlapping, there is evidence of shoe producing skin irritation MUSCLE STRENGTH: 5/5 all groups in a symmetrical fashion, B/L General Examination GENERAL APPEARANCE: Reveals a pleasant, alert, well nourished, well-developed, well hydrated individual, who demonstrates proper attention to hygiene/body habitus, and is in no acute distress, Pt serves as own historian for office visit today FOOT EXAM: Lower Extremity Neurological Exa m performed:: Yes Date Visual exam of foot performed:: Yes Date: 07/07/2024 Sensory testing performed:: sensations d iminished ORIENTED: person, place, and t malcom Footwear Evaluation Footwear Evaluation performe d:: Yes Ophthalmology Referral DIABETES EYE EXAM Procedure Perform ed:: Yes ?Date of Exam Performed: 09/30/2023 Findings of Diabetic Eye Exam:: no retin opathy Vascular DP PULSES (B): 2/4, B/L PT PULSES (B): 2/4, B/L CAPILLARY FILL TIME: immediate, all digi ts, B/L TEMPERTURE GRADIENT (C): normal, warm to cool, proximal to distal, B/L TROPHIC CONDITION-TEXTURE/ELASTICITY/TURGOR/HAIR GROWTH (B): decreased, with sparse to absent hair gr owth EDEMA (C): 2/4, B/L PIGMENTATION: pale, B/L Nails NAILS are: Elongated, overg rown, dystrophic, lytic, greater than 3mm thick, discolored and friable with crumbly malodorous subungual debris, TA, T1, T2, T3, T4, T5, T6, T7, T8, T9
--- OUTSIDE RECORDS SUMMARY | 2024-08-12 14:42 | XMS_ITS ---
Author Organization [facility] Address [address] [place] [address] Care Team Providers Care Granulator Name Role Phone Jovanni Ortiz MD Primary Care Provider Lg Mixon [phone] Encounters Encounter Location Date Provider Diagnosis [facility] [address] [place] [address] 07/16/2023 Lg Howard PLAN OF TREATMENT No Information
--- OUTSIDE RECORDS SUMMARY | 2024-08-12 14:42 | XMS_ITS ---
Author Organization [facility] Address [address] [place] [address] Care Team Providers Care Desk Operator Name Role Phone Jovanni Ortiz MD Primary Care Provider Unavaila Lg Smart [phone] REASON FOR VISIT up date Encounters Encounter Location Date Provider Diagnosis [facility] [address] [place] [address] 08/02/2023 Lg Howard PLAN OF TREATMENT No Information
--- OUTSIDE RECORDS SUMMARY | 2024-08-12 14:42 | XMS_ITS | Clinical Summary ---
Author Organization [facility] Address [address] [place] [address] Care Team Providers Care Benefit Specialist Name Role Phone Jovanni Ortiz MD Primary Care Provider [phone] Allergies No known active allergies Medications Medication [...] age to complete this topic Care Teams Benefit Specialist Relationship Specialty Start Date End Date Jovanni Ortiz MD [address] [facility] [place] [address] PCP - General Internal Medicine 03/01/17
--- OUTSIDE RECORDS SUMMARY | 2024-08-12 14:42 | XMS_ITS | Patient Health Record ---
Author Organization [facility] Address [address] [place] [address] Care Team Providers Care Highway Inspector Name Role Phone Jovanni Ortiz MD Primary Care Provider Lg Mixon [phone] ALLERGIES Allergen (clinical drug ingredient) Drug/Non Drug [...] Change in bowel habit (R19.4) Active confirmed 046097543 Problem Constipation, unspecified constipation type (K59.00) Active confirmed [id number] Problem Colon cancer screening (Z12.11) Active confirmed Colon cancer screening (460738910) Problem History of adenomatous polyp of colon (Z86.010) Active confirmed History of adenomatous polyp of colon (326290806) Problem Preprocedural examination (Z01.818) Active confirmed Preprocedural examination (760807848383674) Problem Diverticulosis of colon (K57.30) Active confirmed Diverticulosi s of colon (848985415) PLAN OF TREATMENT Pending Test Test Name Order Date T4 (THYROXINE) 08/02/2016 CBC w DIFF 08/02/2016 TSH RECEPTOR AB 08/02/2016 Future Test Test Name Order Date COLONOSCOPY 08/02/2016 COLONOSCOPY 03/06/2022 Insurance Providers Payer Name Payer Address Payer Phone Subscriber Number Group Number Insured Name Patient Relationship to Insured Coverage Start Date Coverage End Date [facility] [address] [facility] [place] [phone] [id number] BALA SCHULZ Self - patient is the insured MEDICAL (GENERAL) HISTORY Medical History History ICD Code Screening colonoscopy 010--neg for polyps,mild diverticulosis, internal hemorrhoids History of right sided breast cancer irina ated with mastectomy in 2006 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
--- OUTSIDE RECORDS SUMMARY | 2024-08-12 14:42 | XMS_ITS ---
Author Organization [facility] Address [address] [place] [address] Care Team Providers Care Automatic Profile Sander Operator Name Role Phone Jovanni Ortiz MD Primary Care Provider Unavaila Lg Smart [phone] SCAN Encounters Encounter Location Date Provider Diagnosis [facility] [address] [place] [address] 05/10/2023 Lg Howard PLAN OF TREATMENT No Information
--- OUTSIDE RECORDS SUMMARY | 2024-08-12 14:42 | XMS_ITS | Clinical Summary ---
Author Organization [facility], Address [address] [place] [address] Phone Care Team Providers Care Orthotist Prosthetist Name Role Phone Jovanni Ortiz MD Primary Care Provider [phone] Allergies Active Allergy Reactions Criticality Noted Date [...] of breast cancer, underwent reconstruction with tissue cutter helper and permanent implant on right side Tubular [...] patient's age to complete this topic Insurance [facility] Care Teams Orthotist Prosthetist Relationship Specialty Start Date End Date Jovanni Ortiz MD [facility] [address] [place] [address] PCP - General Internal Medicine 07/05/23
== END 2024-08-12 13:54 | disposition home or self-care (01) ==
PROVIDERS: PCP Family Medicine; Visit Provider Internal Medicine Nephrology
DX: E11.22 Type 2 diabetes mellitus with diabetic chronic kidney disease (principal); N18.30 Chronic kidney disease, stage 3 unspecified; I10 Essential (primary) hypertension; E87.5 Hyperkalemia
CPT/HCPCS: 99214

== ENCOUNTER → 2024-08-12 13:21 | Outpatient (BNVA) | payer MEDICARE, SELFPAY | PROVIDERS: PCP Family Medicine; Visit Provider Internal Medicine Nephrology ==

== ENCOUNTER 2024-09-18 14:21 | Outpatient (AMB) | payer OTHER, SELFPAY ==
--- NOTE | 2024-09-18 14:28 | HO.NEPHOV_ITS ---
Vital Signs 09/18/24 14:30 Height 5 ft 4 in Weight 230 lb BMI 39.5 BP 128/62 Blood Pressure Location Lt brachial Position Sitting Pulse 80 Pulse Source Pulse Oximeter Pulse Oximetry (%) 97 Oxygen Delivery Method Room Air Intake Visit Reasons: [facility] Certified Welding Inspector Required: No Accompanied by: Spouse Allergies liraglutide [From Victoza] Allergy (Intermediate, Verified 09/18/24 14:30) Gastrointestinal Upset metformin Allergy (Intermediate, Verified 09/18/24 14:30) Gastrointestinal Upset transparent dressing [Tegaderm] Allergy (Verified 09/18/24 14:30) Blister HPI Comments Details: Alejandra was seen in the office in follow-up of her chronic kidney disease, hypertension proteinuria. She has diabetic nephropathy. She has HGSC of fallopian tube. She was treated with C1D17 carbo/gemzar and had completed 8 cycles of Avastin. She recently had hospitalization for thrombocytpenia and epistaxis. She got 2 Units of platelets and 1 PRBC. She also had JAVI, hyperkalemia, fever with neutropenia. She was treated with lokelma and NaHCO3. She is off ACEI for now. Her blood sugar is better. She follows closely with Dr. Mcghee .She had been prescribed Jardiance in the past but could not afford the cost. She has not had any hypoglycemias. Her blood pressure is well c ontrolled. She keeps up with good hydration and avoid nonsteroidal anti- inflammatory medications . she denies any chest pain, shortness of breath, proximal nocturnal dyspnea, orthopnea or pedal edema. She is compliant with her medications. She had chemo yesterday. She has neuropathy post chemo [facility] Medical History DVT (deep venous thrombosis) Pulmonary embolism Hyperlipemia HTN (hypertension) IDDM (insulin dependent diabetes mellitus) Breast cancer, right Surgical History History of reduction surgery of left breast H/O mastectomy Social History Alcohol intake: never Patient Tobacco Use Status: Never used Tobacco Review of Systems Const All systems reviewed & are unremarkable except as noted in HPI and below Physical Exam Const General: comfortable and no acute distress Orientation/consciousness: patient oriented x3 HEENT Head: Yes normocephalic Mouth: Normal oral and palatal mucosa present Eyes EOM: EOMs intact bilaterally Neck Neck: Yes supple Resp Auscultation: clear to auscultation bilaterally Cardio Jugular venous distension: no JVD Rate: regular rate GI Palpation (GI): Soft to palpation Auscultation: normal bowel sounds Skin General skin exam: no rashes or lesions noted Neuro General: patient oriented x3 and moves all extremities Results Reviewed Nephrology Results: Hgb 10.9 g/dl (12.0-16.0) L 05/09/23 WBC 6.2 X10*3/uL (4.8-10.8) 05/09/23 Plt Count 222 X10*3/uL (160-400) 05/09/23 Sodium 142 mmol/L (135-145) 08/10/24 Potassium 5.3 mmol/L (3.3-5.1) H 08/10/24 Chloride 113 mmol/L (96-108) H 08/10/24 Carbon Dioxide 23 mmol/L (22-29) 08/10/24 BUN 26 mg/dL (9-16) H 08/10/24 Creatinine 1.10 mg/dL (0.5-1.4) 08/10/24 Calcium 9.5 mg/dL (8.4-10.2) 08/10/24 Urine Protein Negative mg/dL (Neg-Trace) 05/09/23 Urine Creatinine 134.78 mg/dL 08/10/24 Protein/Creatinin Ratio 0.35 (<0.2) H 08/10/24 Assessment & Plan Assessment & Plan (1) JAVI (acute kidney injury): Code(s): N17.9 - Acute kidney failure, unspecified Category: Medical (2) CKD stage 3 due to type 2 diabetes mellitus: Code(s): E11.22 - Type 2 diabetes mellitus with diabetic chronic kidney disease; N18.30 - Chronic kidney disease, stage 3 unspecified Category: Medical (3) HTN (hypertension): Code(s): I10 - Essential (primary) hypertension Category: Medical Qualifiers: Hypertension type: primary hypertension Qualified Code(s): I10 - Essential (primary) hypertension (4) Hyperkalemia: Code(s): E87.5 - Hyperkalemia Category: Medical Plan Alejandra has history chronic kidney disease from diabetes mellitus. She has a diabetic nephropathy. Her proteinuria had been acceptable. She recently had JAVI and hyperkalemia which is resolved now. I discontinued her NaHCO3 and asked her to remain off ACEI for now which I may restart at a low dose with time, She was prescribed Jardiance in the past but could not continue due to its cost. She should avoid nonsteroidal anti-inflammatory medications. She should maintain good hydration. I will ordered for all blood work in F/U. C/W current medications. All questions were answered. Medications: Discontinued lisinopril Discontinued Reason: Doctor's Order 10 mg PO DAILY 90 tabs 4RF Coding Level of Care Code Est Pt Level 4 (65718) Diagnoses JAVI (acute kidney injury) N17.9 CKD stage 3 due to type 2 diabetes mellitus E11.22; N18.30 Primary hypertension I10 Hypertension type: primary hypertension Hyperkalemia E87.5
[2024-09-18 14:30] VITALS: BP 128/62; PULSE 80; O2SAT 97; BMI 39.5
--- OUTSIDE RECORDS SUMMARY | 2024-09-18 16:38 | XMS_ITS | Continuity of Care Document ---
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 Name Role Phone Ilene Arvizu MD Primary Care Physician Encounter [facility] [place](s[place] 09/05/24 - 09/12/[address] [id number]- Encounter Diagnosis Epistaxis(Final) - 09/05/24 Thrombocytopenia(Final) - 09/05/24 Diabetes mellitus type 2(Discharge Diagnosis) - 09/05/24 Discharge Disposition: A-D/C Home Attending Physician: Lilian Fan MD Admitting Physician: Lilian Fan MD Referring Physician: Not on Staff, Referring MD Encounter Type: Disch IP Allergies, Adverse Reactions, Alerts Substance Criticality Severity Reaction Reaction Severity Status Bee Stings Unable to assess criticality Unknown Active Tape 1 surgical - blisters @ site Active glipizide-metformi n gi upset Active Victoza N,V,D tried 3 times Active 1TEGADERM Immunizations Given and Recorded Vaccine Date Status Refusal Reason SARS-CoV-2(COVID-19)mRNA-LNP vac([id number]) 06/10/23 Recorded influenza virus vaccine, inactivated 06/03/23 Hari rded influenza virus vaccine, inactivated 05/11/22 Hari rded influenza virus vaccine, inactivated 04/14/21 Hari rded influenza virus vaccine, inactivated 04/01/20 Hari rded influenza virus vaccine, inactivated 05/12/19 Hari rded influenza virus vaccine, inactivated 05/07/18 Hari rded pneumococcal 20-valent conjugate vaccine 07/24/22 Recorded [id number] bivalent booster vax 05/22/22 Recorded SARS-CoV-2 (COVID-19) mRNA-1273 vaccine 06/14/21 R ecorded SARS-CoV-2 (COVID-19) mRNA BNT-162b2 vac 11/03/20 Recorded SARS-CoV-2 (COVID-19) mRNA BNT-162b2 vac 10/13/20 Recorded tetanus/diphtheria/pertussis, acel(Tdap) 02/03/20 Recorded Medications amLODIPine 10 mg oral tablet 10 mg, 1, tablet, By Mouth, Daily, # 90 tablet, Refills 1, Tot. Refills 1, Maintenance, 08/26/24 3:32:00 PM EST, Route to Pharmacy Electronically, [facility]/pharmacy #[id number], Partial fill upon patient requestif the prescription is for a schedule II opioid drug., 160.8, cm, 08/20/24 11:18:00 EST, Height, 101.6, kg, 07/29/24 11:26:00 EST, Dry Weight Start Date: 08/26/24 Stop Date: 02/22/25 Status: Ordered Quantity: 90.0 Unit: tablet Repeat number: 2 Aspirin = 81 mg, By Mouth, Daily, [...] use to test BG 2x daily, DxE10.9 [facility]# [id number], 09/22/20 9:58:00 AM EDT, Compound, 163, cm, [...] number: 1 gabapentin 300 mg oral capsule 600 mg, Capsule, By Mouth, 09/12/24 9:00:00 AM EDT Start Date: 09/12/24 Stop Date: 09/12/24 Status: Completed Repeat number: 1 gabapentin 300 mg oral capsule See Instructions, TAKE 2 CAPSULES EVERY MORNING AND TAKE 3 CAPSULES EVERY DAY AT BEDTIME, # 150 capsule, Refills 2, Maintenance, 06/25/24 5:46:00 PM EST, Instructions Replace Required Details, Route to Pharmacy Electronically, [id number], 160.8, cm, 06/17/24 8:38:00 EST, Height, 97.1, kg, 05/27/24 8:23:00 EST, Dry Weight Start Date: 06/25/24 Status: Ordered Quantity: 150.0 Unit: capsule Repeat number: 1 HumaLOG KwikPen 200 units/mL (Concentrated) subcutaneous solution See Instructions, INJECT SUBCUTANEOUSLY 3 TIMES DAILY WITH MEALS, MAX DAILY DOSE 90 UNITS, # 42 Unknown, 2 Refills, Maintenance, 07/13/24 1:39:00 PM EST, [id number], 160.8, cm, 07/08/24 14:12:00 EST, Height, 97.1, kg, 05/27/24 8:23:00 EST, Dry Weight Start Date: 07/13/24 Status: Ordered Quantity: 42.0 Unit: Unknown Repeat number: 1 hydrocortisone 2.5% topical cream 1 application, Topically, 3 times a day, # 28 Gm, 0 Refills, Maintenance, 01/29/24 12:19:00 PM EDT, Cream, [facility]/pharmacy #[id number], Partial fill upon patient request if the [...] 0 Refills, Maintenance, 12/03/23 1:15:00 PM EDT, [id number], 160, cm, 12/01/23 4:27:00 EDT, Height, 100, kg, 12/01/23 7:35:00 EDT, Dry Weight Start Date: 12/03/23 Status: Ordered Quantity: 30.0 Unit: Unknown Repeat number: 1 levoFLOXacin 750 mg oral tablet 1 tablet = 750 mg, By Mouth, Once, Take one tablet the evening of 09/12/24, # 1 tablet, 0 Refills, Soft Stop, 09/12/24 10:31:00 AM EDT, Tablet, [facility], Partial fill upon patient request if the prescription is for a schedule II opioid drug., 162, cm, 09/11/24 16:00:00 EDT, Height, 100, kg, 09/05/24 19:08:00 EST, Dry Weight Start Date: 09/12/24 Status: Ordered Quantity: 1.0 Unit: tablet Repeat number: 1 lidocaine-prilocaine 2.5%-2.5% topical cream See Instructions, apply [facility] 30-60min prior to each chemotherapy session, # 30 Gm, 2 Refills, Maintenance, 07/30/23 4:21:00 PM EST, [facility]/pharmacy #[id number], Partial fill upon patient request if the prescription is for a schedule II opioid drug., apply to [facility] 30-60min prior to eachchemotherapy session, 159.2, cm, [...] 07/04/23 Status: Ordered Repeat number: 1 Pen Kennard, 32 G x 4 mm BD Ultra Fine III See Instructions, # 300 each, Refills 2, Tot. Refills 2, Maintenance, e11.9 Use 3 times daily with Lantus and Humalog. 90 days, 10/30/21 12:47:00 PM EDT, Compound, 163, cm, 12/12/20 13:32:00 EDT, Height Start Date: 10/30/21 Status: Ordered Quantity: 300.0 Unit: each Repeat number: 3 prochlorperazine 10 mg oral tablet 1 tablet = 10 mg, By Mouth, Every 6 hours, PRN Nausea, # 30 tablet, 2 Refills, Maintenance, 259:22:00 AM EST, Tablet, [facility]/pharmacy #[id number], Partial fill upon patient request if the prescription is for a schedule II opioid drug., 160.6, cm, 08/20/24 9:02:00 EST, Height, 101.6, kg, 07/29/24 11:26:00 EST, Dry Weight Start Date: 08/20/24 Status: Ordered Quantity: 30.0 Unit: tablet Repeat number: 3 sodium bicarbonate 650 mg oral tablet 1 tablet = 650 mg, By Mouth, 3 times a day, for 30 days, # 90 tablet, 0 Refills, Acute 10/11/24 10:20:00 AM EDT, 09/11/24 10:20:00 AM EDT, Tablet, [facility], Partial fill upon patient request if the prescription is for a schedule II opioid drug., 162, cm, 09/10/24 16:33:00 EDT, Height,100, kg, 09/05/24 19:08:00 EST, Dry Weight Start Date: 09/11/24 Stop Date: 10/11/24 Status: Ordered Quantity: 90.0 Unit: tablet Repeat number: 1 Vitamin B-12 100 mcg oral tablet 1, tablet, By Mouth, Daily, # 90 tablet, Refills 1, Maintenance, 05/17/24 10:28:00 PM EST, Route toPharmacy Electronically, [id number], 160.8, cm, 05/06/24 10:37:00 EST, Height, 86.5, [...] of breast cancer, underwent reconstruction with tissue bevel mill operator and permanent implant onright side Diagnosis Diagnosis Type Effective Dates Health Status Cl inical Service Informant Diabetes mellitus type 2 Discharge Diagnosis 09/05/24 Results Radiology Reports * Exam Date Time Procedure Performing Provider Status 09/06/24 3:21 PM Chest Portable Penelope Brown (Verified) Notes: (Chest Portable) Reason For Exam: Line Placement RESULT: Chest Portable Examination: Portable chest performed on 09/06/2024. History: Line placement. Findings: A frontal view of the chest is compared to a prior study dated 11/30/2023. Port-A-Cath has the tip at the cavoatrial junction. The cardiac silhouette is within normal limits for size. The lungs are clear. The osseous structures are unremarkable. Surgical clips in the right axilla are noted. IMPRESSION: Port-A-Cath as described. There is no acute cardiopulmonary disease. WSN: [id number] Ordering Physician: Missy Chen Dictated By: Gabbie Kingston MD Dictated Date/Time: 09/06/24 4:09 pm Reviewed By: Gabbie Kingston MD Signed By: Gabbie Kingston MD Signed Date/Time: 09/06/24 4:09 pm Transcribed By: TYREE Transcribed Date/Time: 09/06/24 4:08 pm Vital Signs Most recent to oldest [Reference Range]: 1 2 3 Height 162 cm (09/11/24 4:00 PM) 162 cm (09/10/24 4:33 PM) 162 cm (09/10/24: AM) Weight 99.1 kg (09/10/24 6:10 AM) 97.4 kg (09/09/24 6:33 AM) 104.6 kg (09/08/24 6:28 AM) Oxygen Saturation [94-100 %] 98 % (09/12/24 11:00 AM) 97 % (09/12/24 7:00 AM) 96 % (09/12/24 4:00 AM) Pulse Rate [55-90 bpm] 85 bpm (09/12/24 11:00 AM) 83 bpm (09/12/24 7:00 AM) 86 bpm (09/12/24 4:00 AM) Body Mass Index [18.5-24.99 kg/m2] 38.1 kg/m2 *>HHI* (09/05/24 7:08 PM) Blood Pressure [90-138/55-84 mm Hg] 136/56mm Hg (09/12/24 11:00 AM) 136/53mm Hg (09/12/24 7:00 AM) 141/51mm Hg *H* (09/12/24 4:00 AM) Respiratory Rate [16-30 br/min] 17 br/min (09/12/24 11:00 AM) 16 br/min (09/12/24 8:11 AM) 18 br/min (09/12/24 7:00 AM) Temperature [96.8-100.4 DegF] 99.1 DegF (09/12/24 11:00 AM) 99.4 DegF (09/12/24 7:00 AM) 98.6 DegF (09/12/24 4:00 AM) Mode of Delivery (Oxygen) Room air (09/12/24 11:00 AM) Room air (09/12/24 7:00 AM) Room air (09/12/24 4:00 AM) Blood pressure sites Arm, left (09/12/24 11:00 AM) Arm, left (09/12/24 7:00 AM) Arm, left (09/12/24 4:00 AM) Temperature Route Oral (09/12/24 11:00 AM) Oral (09/12/24 7:00 AM) Oral (09/12/24 4:00 AM) Dry Weight 100 kg (09/05/24 7:08 PM) 100 kg (09/05/24 2:00 PM) Weight Obtained Via Standing scale (09/10/24 6:10 AM) Bed scale (09/08/24 6:28 AM) Patient/family stated (09/05/24 2:00 PM) Social History Social History Type Response Smoking Status Never smoker entered on: 09/06/16 Sex Sex Representation Female (finding) History and physical note * Missy Chen MD: PERFORM, MODIFY, MODIFY Event Display: History and Physical Hospital Authored Date: Patient: ??ALEJANDRA SCHULZ ? Age:??64 Years?Sex:??Female?:??1960?? 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 She was seen about 4 days ago with the same issue, received a platelet transfusion, nasal bleeding resolved and she was dischargedhome. Yesterday she again started to have a nosebleed after she blew her nose. She packed the nose with tissue and it improved in the evening. She was able to sleep without issue. This morning the bleeding started again, though. ?? She has a headache currently. She is feeling well otherwise. No chest pain, shortness of breath, abdominal pain, nausea/vomiting, or fevers/chills. She has been eating and drinking her usual amount. She has not noticed bleeding anywhere else.? She is agreeable to receiving a platelet transfusion and to admission for monitoring and management.? [facility] Review: TREATMENT HISTORY: 1.??history of abdominal pain and constipation??beginning in May 2023, MRI pelvis on??07/03/23 with ascites and carcinomatosis 2.??Biopsy of peritoneal nodule- proven HGSC on 07/24/2023.?? Paracentesis to remove 4.3L of ascites 3. Initiation of Carbo/Taxol- 08/05/2023, completed six cycles- Avastin x 2 cycles?? 4.??status post exploratory laparotomy, bilateral salpingo-oophorectomy, debulking tumor, cystoscopy, omentectomy, flexible abdominal sigmoidoscopy with Dr Garcia and Dr Varela on 12/16/2023 HIGH GRADE SEROUS CARCINOMA OF THE RIGHT FALLOPIAN TUBE, CRS2 5. Delayed in resuming treatment d/t wound dehiscence-??Resumed Avastin on 04/15/24 [facility] genetic testing- negative Review of Systems Negative except as noted in HPI Physical Exam Vitals & Measurements T:??98.3?F?? HR:??97??(Peripheral)?? RR:??16?? BP:??134/55?? SpO2:??100%?? HT:??162??cm?? WT:??100??kg?? Constitutional:??No acute distress, resting comfortably. HEENT:??left nostril has gauze that??has a few spots of pink blood. Right nostril is not packed andnot bleeding.?? Respiratory:??Normal work of breathing. Lungs clear to auscultation bilaterally. Cardiovascular:??Regular rate and rhythm, no murmurs.? Abdomen: Soft, non-distended, non-tender throughout. Midline vertical incision well healed. Some nodularity palpable under the skin surface scattered throughout abdomen. Extremities:??No calf tenderness or pitting??edema. Signs of venous stasis bilaterally.?? Assessment/Plan Assessment:??Alejandra is a 64yo with HGSC of the fallopian tube, currently C1D17 carbo/gemzar and who has completed??8 cycles??Avastin, who presents with epistaxis. Found to have thrombocytopenia withplt??22. She is agreeable to admission to [facility] for platelet transfusion, managementof epistaxis, and monitoring of plt??and bleeding. She presented with the same findings a few days ago, received platelet transfusion and was discharged home. ENT provided recommendations over the phone at that time, which we will follow here if needed and are outlined below. Her bleeding is scant at this time, though. H/H is stable, does not require a blood transfusion at this time. Vitals and remainder of exam are wnl.? Epistaxis (R04.0):? Per ENT recommendations??from??3/4: - Nasal packing with Surgicel if needed for bleeding - Afrin BID;??if acute bleeding episode, can use sooner than Q12h - If bleeding not resolved with the above and persistent dripping past packing for >15 minutes, recommend placement of Rhinorocket??(saline filled??nasal tamponade) to remain in place for durationof??2 days ?? Thrombocytopenia (D69.6):? - Plt 22??on arrival - Transfuse 1u plt??ordered - Follow labs ?? Severe neutropenia (D70.9):? - Neutropenic precautions ?? HTN (hypertension) (I10):? - Home amlodipine & lisinopril??ordered ?? Diabetes mellitus type 2 (E11.9):? - Home Lantus 54u qhs ordered - POCs with meals, insulin sliding scale with meals ordered ? Plan reviewed with Dr. Fan. 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 and permanent implant on right side Cancer of right fallopian tube: (Medical) Chemotherapy-induced nausea: (Medical) Diabetes mellitus type 2: (Medical) Dupuytren's disease of palm: (Medical) Dyspnea on exertion: (Medical) Elevated CA-125: (Medical) HTN (hypertension): (Medical) Hyperlipidemia: (Medical) Leukocytes in urine: (Medical) Maintenance antineoplastic chemotherapy: (Medical) Pulmonary embolism: (Medical) Renovascular hypertension: (Medical) Severe obesity (BMI 35.0-39.9) with comorbidity: (Medical) Wound dehiscence: (Medical) Procedure/Surgical History Breast reconstruction, immediate or delayed, with tissue bevel mill operator, including subsequent expansion ? 11-MAR-2018 23:08:33<$>: 10/11/06 History of right mastectomy Dilation and curettage Home Medications Amlodipine: 10 mg = 1 tablet, By Mouth, Daily Aspirin: 81 mg, By Mouth, Daily Atorvastatin: 80 mg = 1 tablet, By Mouth, Daily at bedtime Cyanocobalamin: 1 tablet, By Mouth, Daily Durable Medical Equipment: See Instructions, e11.9 Use 3 times daily with Lantus and Humalog. 90 days Gabapentin: See Instructions, TAKE 2 CAPSULES EVERY MORNING AND TAKE 3 CAPSULES EVERY DAY AT BEDTIME Hydrocortisone Topical: 1 application, Topically, 3 times a day Insulin Glargine: See Instructions, INJECT 60 UNITS SUBCUTANEOUSLY AT BEDTIME NO FURTHER REFILLS WITHOUT FOLLOW UP APPOINTMENT Insulin Lispro: See Instructions, INJECT SUBCUTANEOUSLY 3 TIMES DAILY WITH MEALS, MAX DAILY DOSE 90UNITS Lidocaine/Prilocaine Topical: See Instructions, apply to portacath site 30-60min prior to each chemotherapy session Lisinopril: 10 mg, By Mouth, Daily Miscellaneous Rx (FreeStyle Froylan sensors): See Instructions, change every 14 days, ??(3 each/sensors/month), E11.9 Miscellaneous Rx (FreeStyle Froylan reader): See Instructions, Use to read Froylan Sensor 5x daily, canalso use to test BG 2x daily, DxE10.9 ??[facility]# [id number] Miscellaneous Rx (FREESTYLE PREC KIMBERLY TEST STRIPS): See Instructions, USE DIRECTED 4 TIMES A DAY Multivitamin PROCHLORperazine: 10 mg = 1 tablet, By Mouth, Every 6 hours, PRN (Nausea) Allergies Bee Stings Tape??(surgical - blisters @ site) Victoza??(N,V,D tried 3 times) glipizide-metformin??(gi upset) Social History Alcohol Use: Never. Electronic Cigarette/Vaping Electronic Cigarette Use: Never. Employment/School Status: Retired. Exercise Self assessment: Fair condition. Regular exercise: No. Home/Environment Living situation: Home/Independent. Lives with: Spouse. Nutrition/Health Diet: Regular. Sexual Sexually involved in last 6 months: No. Substance Abuse Use: Never. Tobacco Never smoker Family History Mother: Alzheimer's disease Father: Hypertension; Non-Hodgkin's lymphoma Brother: Hypertension; Malignant melanoma Other (maternal aunt): Cancer of breast; Cancer of ovary Aunt (paternal aunt): Cancer of breast * Meng HERNANDEZ, Lilian: PERFORM Event Display: History and Physical Hospital Authored Date: Attending attestation: I have discussed the case and its management with the resident and agree with the findings and plan as documented in the resident's note with the following additions/exceptions. Labs and imaging studies reviewed. ?? Lilian Fan MD [facility] ?? EKG study * Event Display: ECG 12-Lead Authored Date: Please click on pdf link to open report * Event Display: ECG 12-Lead Authored Date: Ventricular Rate: 86 BPM Atrial Rate: 86 BPM P-R Interval: 132 ms QRS Duration: 88 ms Q-T Interval: 366 ms QTC Calculation(Bazett): 437 ms P [place]: 15 degrees R [place]: -84 degrees T [place]: 38 degrees Normal sinus rhythm Left axis deviation RSR' or QR pattern in V1 suggests right ventricular conduction delay Inferior infarct (cited on or before 05-Jul-2006) Abnormal ECG When compared with ECG of 30-Nov-2023 23:28, Right bundle branch block is no longer Present Confirmed by Ed Pichardo ([id number]) on 09/10/2024 7:36:40 AM [place]: Ed Pichardo [facility]iology * Event Display: Cardiac Rhythm Strips Authored Date: Hospital Progress note * Abeba Crystal RN: VERIFY, PERFORM, SIGN Event Display: Progress Note Hospital Authored Date: [id number] Patient: ALEJANDRA SCHULZ Age: 64 years Sex: Female : 1960 Associated Diagnoses: None Author: Abeba Crystal RN Findings Problem Related to Alteration in Immunologic : Alteration in Immunologic Function/new 09/12/2024 8:00 EDT Alteration Immunologic Status Related to Neutropenia Goals & Outcomes, Immunologic Pt will maintain/resume normal fluid/electrolyte balance, Pt willnot develop complications r/t immobility Interventions, Immunologic Monitor response to fluid replacement, Maintain patent IV access, Monitor Intake & Output, Maintain and monitor nutritional intake, Assess for presence and degree of edema, Assess skin integrity BH Goals/Interventions, Immunologic Yes Immunologic, Problem Start 09/07/2024 18:18 Reviewed Plan with, Immunologic Patient Patient Progression, Immunologic Status Pt progressing according to plan . Nursing Data Gastrointestinal Data. : Gastrointestinal Data. 09/12/2024 9:00 EDT Last Bowel Movement 09/11/2024 GI WNL Normal Bowel Pattern Daily . Genitourinary Data. : Genitourinary Data. 09/12/2024 9:00 EDT WNL . Evaluation P: Alteration in immunological function I: See interventions listed above E: Pt alert and oriented x4. NSR on tele monitor. Ambulates with standby assistance. Lokelma ordered/given for Potassium 5.2, Tolerating diabetic diet. OOB with standby assistance/walker. Lung soundsCTA, on Room Air. Voids in BR. Discharge instructions reviewed with pt and spouse and all questionsanswered. Left via wheelchair at 1515. Discharge Information Case Management Discharge Plan : Case Management Discharge Plan Data 09/12/2024 15:18 EDT Discharge Level of Care at Discharge Home/Half-Way/Foster Care 09/10/2024 14:47 EDT Discharge Level of Care at Discharge In Error (In Error) * Barrington ZAMUDIO, Rhoda: VERIFY, PERFORM, SIGN Event Display: Progress Note Hospital Authored Date: [id number] Patient: ALEJANDRA SCHULZ Age: 64 years Sex: Female : 1960 Associated Diagnoses: None Author: Barrington ZAMUDIO, Rhoda Findings Problem Related to Alteration in Immunologic : Alteration in Immunologic Function/new 09/12/2024 3:00 EDT Alteration Immunologic Status Related to Neutropenia Goals & Outcomes, Immunologic Pt will maintain/resume normal fluid/electrolyte balance, Pt willnot develop complications r/t immobility Interventions, Immunologic Maintain patent IV access, Monitor Intake & Output, Maintain and monitor nutritional intake, Assess for presence and degree of edema, Assess skin integrity, Provide nonpharmocologic comfort measures BH Goals/Interventions, Immunologic Yes Immunologic, Problem Start 09/07/2024 18:18 Reviewed Plan with, Immunologic Patient Patient Progression, Immunologic Status Pt progressing according to plan . Nursing Data Vital Signs : VITAL SIGNS SECTION 09/12/2024 4:00 EDT Temperature 98.6 DegF Temperature Route Oral Pulse Rate 86 bpm Respiratory Rate 17 br/min Systolic Blood Pressure 141 mm Hg H Diastolic Blood Pressure 51 mm Hg L Blood pressure sites Arm, left Pulse Pressure 90 mm Hg Oxygen Saturation 96 % Mode of Delivery (Oxygen) Room air 09/12/2024 3:35 EDT Early Warning Score 5.00 09/11/2024 22:58 EDT Respiratory Rate 17 br/min 09/11/2024 21:59 EDT Early Warning Score 5.00 09/11/2024 21:59 EDT Early Warning Score 5.00 09/11/2024 21:58 EDT Respiratory Rate 18 br/min Systolic Blood Pressure 130 mm Hg Diastolic Blood Pressure 57 mm Hg 09/11/2024 20:59 EDT Early Warning Score 5.00 09/11/2024 19:45 EDT Early Warning Score 5.00 09/11/2024 19:00 EDT Temperature 98.7 DegF Temperature Route Oral Pulse Rate 88 bpm Respiratory Rate 18 br/min Systolic Blood Pressure 130 mm Hg Diastolic Blood Pressure 57 mm Hg Blood pressure sites Arm, left Pulse Pressure 73 mm Hg Oxygen Saturation 95 % Mode of Delivery (Oxygen) Room air . Narrative/Incidental Alert and oriented X4. Lung sounds clear to auscultation throughout lobes bilaterally on room air. Incentive spirometer at bedside within reach, able to reach 1,500 with use. No edema noted bilaterally, sequential compression devices in place bilaterally. Abdomen is soft, round, non-tender. Bowel sounds present to all four quadrants. Reports flatus. Tolerating a diabetic carb diet. Last recorded bowel movement was 07/13/24. Voiding in the hat in the bathroom. Skin in warm, dry and intact. Ambulates with standby assist and a walker, steady gait. Sleeps in her recliner chair, chair wheels locked. Call angulo within reach, rings appropriately. . Discharge Information Case Management Discharge Plan : Case Management Discharge Plan Data 09/10/2024 14:47 EDT Discharge Level of Care at Discharge In Error (In Error) * Rigoberto HERNANDEZ, Mariusz Basilio: PERFORM Event Display: Progress Note Hospital Authored Date: [id number] Patient: ??ALEJANDRA SCHULZ ? Age:??64 Years?Sex:??Female?:??1960?? Subjective patient feels well no fevers no urinary symptoms Cr better, K haemolyzed.??[facility]??onc planning to repeat ?? no bleeding/epistaxis Review of Systems ?Constitutional: no fevers/chills ?Eyes: no pain, no vision changes ?ENT: no ear pain, no change in hearing ?Cardiovasc: no chest pain, no palpitations, no PND, no orthopnoea ?Resp: no cough, no sputum, no haemoptysis, no dyspnoea ?? Objective Measurements?? Height: 162 cm (09/10/24) Weight: 99.1 kg (09/10/24) Dry Weight: 100 kg (09/05/24) Body Mass Index:??38.1 kg/m2??Critical (09/05/24) ? Vital Signs?? Temperature: 98.9 DegF (09/11/24 10:00:00) Temperature Route: Oral (09/11/24 10:00:00) Pulse Rate: 87 bpm (09/11/24 10:00:00) Respiratory Rate: 18 br/min (09/11/24 10:48:00) Respiratory Rate: 18 br/min (09/11/24 10:48:00) Systolic Blood Pressure:??140 mm Hg??High (09/11/24 10:00:00) Diastolic Blood Pressure: 66 mm Hg (09/11/24 10:00:00) Blood pressure sites: Arm, left (09/11/24 10:00:00) Mean Arterial Pressure: 84 mm Hg (09/10/24 16:33:00) Pulse Pressure: 74 mm Hg (09/11/24 10:00:00) Oxygen Saturation: 100 % (09/11/24 10:00:00) Mode of Delivery (Oxygen): Room air (09/11/24 10:00:00) Early Warning Score: 3 (09/11/24 12:06:53) ? Intake/Output? 09/05 16:15 09/11 07:00 09/10 07:00 09/09 07:00 09/08 07:00 ?? 09/11 13:48 09/11 13:48 09/11 06:59 09/10 06:59 09/09 06:59 Intake ?96208.3 ?218 ? 1350 ? 1554 ? 2390 Output ?18026 ?350 ? 1650 ? 2000 ? 2350 Net Total ? -540.7 ? -132 ? -300 ? -446 ? 40 ? Urine Count ?3 ?1 ?0 ?2 ?0 ? Physical Exam Gen: comfortable, well: HEENT: normocephalic, atraumatic, moist mucous membranes Chest: CTA, no wheeze/crackles CVS: no M/G/R, no JVD Abdo: soft, non-tender Ext: no oedema, no cyanosis or clubbing Neuro: no deficit Psych: WNL _ 72 Hour Antibiotic History Active Antibiotics Calendar Day Last Administered First Administered Levofloxacin??750 mg, By Mouth, Every 48 hours ?4 09/10/2024 17:03 09/08/2024 18:53 ? Stopped Antibiotics Stop Date/Time Last Administered First Administered Cefepime??2 Gm, 33.33 mL/hr, IVPB, Every 12 hours 09/08/2024 17:56 09/08/2024 17:04 09/06/2024 16:50 ? 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 Hyperkalemia (E87.5) JAVI (acute kidney injury) (N17.9) Type IV renal tubular acidosis Hyperchloremic metabolic acidosis? Patient with known CKD??stage III. On presentation, noted to have acute kidney injury??which is now improving Persistent hyperkalemia??in range??4.9???5.6 S/p Lokelma x 2 ?? Overall,??patient??appears to be euvolemic, no significant volume losses At this time, clinical picture most consistent with??decreased??potassium??excretion??due to distal??type IV RTA. ?? Cr back to baseline latest K haemolysed. being repeated continue sodium bicarb Continue holding lisinopril If persistent hyperkalemia??despite intervention, can consider nephrology consult? Epistaxis (R04.0):??Resolved ?? Severe neutropenia (D70.9) Complicated UTI (urinary tract infection) (N39.0) ?Urine culture pos??for E faecalis Currently on Levaquin which is renally dosed ?? Thrombocytopenia (D69.6):?? Anemia (D64.9):?? Cancer of right fallopian tube (C57.01) Port-A-Cath in place (Z95.828) ? s/p debulking 11/[address] noted on CT 08/2024 ?? Ongoing treatment per primary team ?? HTN (hypertension) (I10):??Continue amlodipine.??Hold lisinopril as above ?? Diabetes mellitus type 2 (E11.9):??Continue SSI, Lantus, POC glucose checks ?? Hyperlipidemia (E78.5):??Continue statin ?? Thank you for allowing us to participate in patient care Medicine will sign off ? Note * Abeba Crystal RN: PERFORM Event Display: Discharge/Transfer Note Hospital Authored Date: [id number] Nursing Discharge Note Entered On: 09/12/2024 15:18 EDT Performed On: 09/12/2024 15:18 EDT by Abeba Crystal RN Nursing Discharge Note 2 Discharge Time : 09/12/2024 15:15 EDT Discharge Level of Care at Discharge : Home/Half-Way/Foster Care Patient Left Unit Via : Wheelchair Patient Accompanied Off Unit with : Significant other DC Instructions Provided & Signed by Pt : Yes Patient Understands D/C Instructions : Yes Patient Instructions Discharge Signed : Yes Did Pt have Specialty Bed or Wound Vac : No Abeba Crystal RN - 09/12/2024 15:18 EDT * Imelda Mora MD: PERFORM Event Display: Discharge/Transfer Note Hospital Authored Date: [id number] Patient: ??SCHULZ, ALEJANDRA ? Age:??64 Years?Sex:??Female?:??1960?? Admit Date Admission Date: 09/05/2024 Discharge Date 09/12/2024 Discharge Diagnoses 1.??Diabetes mellitus type 2, 09/05/2024 2.??Cancer of right fallopian tube, 09/09/2024 3.??HTN (hypertension), 09/09/2024 4.??Hyperlipidemia, 09/09/2024 JAVI (acute kidney injury), 09/08/2024 Anemia, 09/06/2024 Cancer of right fallopian tube, 09/09/2024 Complicated UTI (urinary tract infection), 09/08/2024 Epistaxis, 09/05/2024 HTN (hypertension), 09/05/2024 Hyperkalemia, 09/09/2024 Port-A-Cath in place, 09/06/2024 Severe neutropenia, 09/05/2024 Thrombocytopenia, 09/05/2024 [facility] Alejandra is a 64yo with HGSC of the fallopian tube, admitted on C1D17??carbo/gemzar and who has completed??8 cycles??Avastin to [facility] for thrombocytopenia and epistaxis. She got??2u of platelets and 1 u of RBC on admission. Her nosebleed significantly improved??with Afrin and conservat marcos measures. VTE chemoprophylaxis initially was held in??the setting of??thrombocytopenia and??epistaxis.? On 09/06 she developed a fever in the setting of her neutropenia, cultures were collected and she wasstarted in Cefepime at that time for neutropenic fever (Cefepime renally dosed). She was also started on Neupogen at that time.? She developed an JAVI, which improved which improved with IV fluid hydration.? Her urine culture resulted on 09/08 as E. faecalis. Her antibiotics were switched to Levofloxacin??on 09/08 for treatment of UTI with renal dosing and plan for 7 total doses.??On 09/09, she received an??additional 1 unit of pRBCs??and was started on heparin for VTE prophylaxis in the setting of stablethrombocytopenia and no further bleeding. At this time,??she was noted??to be hyperkalemic and medicine was consulted. Her lisinopril??was held and??recommendations made??for??lokelma, which she??received 2 doses??of, and??initiation??of sodium??bicarbonate, which??improved her hyperkalemia.??Heparin was then held after her hemoglobin dropped from her transfusion, there was not an identified source of bleeding, and she received a repeat transfusion on 09/10 with appropriate rise in post-transfusion hemoglobin.??Heparin prophylaxis was then restarted. ?? On 09/11, her Hgb and platelet counts were both stable and ANC improved to 4.7. She remained afebrile and was taken off of neutropenic precautions at that time with plan for additional night of admission to monitor potassium and ensure continued rise in ANC. On 09/12 her ANC increased to 8.7. On day of discharge, she was doing well, tolerating PO and without acute complaints.??She had recovery of her ANC and Hgb and platelet counts were stable. She was appropriate for discharge,?? with??plans for??outpatient labs next week for pre-chemotherapy evaluation, and nephrology follow up on 09/18.?? Objective/Physical Exam on Day of Discharge Vitals & Measurements T:??99.4?F?? HR:??83??(Peripheral)?? RR:??18?? BP:??136/53?? SpO2:??97%?? HT:??162??cm?? WT:??99.1??kg?? BMI:??38.1?? General:??pleasant, alert, cooperative, NAD Cardiac:??Regular rate and??rhythm?? Respiratory:??unlabored breathing.??Clear to auscultation bilaterally Abdominal:??Soft, non-distended. No guarding or rebound. Neurologic:??No focal neurological deficits.??Moves all extremities spontaneously. Extremities:??Symmetrical muscle bulk, no visible erythema or edema.?? Psych:??Mood and affect stable, appearance appropriate, good eye contact, talkative Assessment/Plan Assessment:?Alejandra is a 64yo with HGSC of the fallopian tube, currently C1D23??carbo/gemzar andwho has completed??8 cycles??Avastin, admitted for thrombocytopenia and epistaxis. Her nosebleed has resolved.??She is s/p 2u PLT and??3u RBC for her thrombocytopenia and anemia this admission with stable and improving platelets, Hgb stable this AM at 8.9. ?? Regarding her new neutropenic fever, patient remains afebrile. Urine culture resulted with E faecalis and antibiotics were switched from Cefepime for Levofloxacin on 09/08 with plan to treat for totalof 3 doses, will D/C today. Final blood??cultures, port cultures pending but no growth to date. ANCup to 8.7 this AM, will discontinue Neupogen today. JAVI improved, creatinine back to??baseline.??Plan for outpatient renal follow up next week. She is suitable for discharge today. ?? Plan??discussed with Dr. Olivares, attending physician. ?? Epistaxis (R04.0):? Per ENT recommendations??from??09/01: - Nasal packing with Surgicel if needed for bleeding - Afrin BID;??if acute bleeding episode, can use sooner than Q12h - If bleeding not resolved with the above and persistent dripping past packing for >15 minutes, recommend placement of Rhinorocket??(saline filled??nasal tamponade) to remain in place for durationof??2 days ?? Thrombocytopenia (D69.6):??- s/p 2u PLT -Plt??stable above 50 - 09/11: 82 ?? HTN (hypertension) (I10):??- Home amlodipine - Lisinopril discontinued? Diabetes mellitus type 2 (E11.9):?Home Lantus 60u qhs? Severe neutropenia (D70.9):??- Neutropenic precautions - resp panel negative - ANC 8.7 this AM - T last 101.2 on 09/07 @0035 - afebrile? Anemia (D64.9):??s/p 3u RBC??total Hb stable 8.9 this AM ?? JAVI (acute kidney injury) (N17.9):??- Resolved, Cr 0.9 this AM - tolerating PO, encouraged increased fluid intake ?? Complicated UTI (urinary tract infection) (N39.0):??Urine culture pos??for E faecalis Switched from Cefepime to Levofloxacin (dosing q48h d/t Cr) on 09/08 Plan for 7 doses??of treatment (last dose 09/20) ?? Hyperkalemia (E87.5):? s/p medicine consult, recs appreciated K max 5.6 this admission -??normal EKG??09/09 - on telemetry,??no events -s/p lokelma??x2 on 09/09 - K this AM hemolyzed.? Cancer of right fallopian tube (C57.01):??s/p debulking 11/[address] 08/2024 C1D23??of carbo/gemzar chemo deferred until next week, prechemo??appt 09/16 Code status: Full code ?? Hyperlipidemia (E78.5):??Continue ?? Discharge Medications ???Amlodipine (amLODIPine 10 mg oral tablet)???Aspirin???Atorvastatin (atorvastatin 80 mg oral tablet)???Cyanocobalamin (Vitamin B-12 100 mcg oral tablet)???Durable Medical Equipment (Pen Kennard, 32G x 4 mm BD Ultra Fine III)???Gabapentin (gabapentin 300 mg oral capsule)???Hydrocortisone Topical ( hydrocortisone 2.5% topical cream)???Insulin Glargine (Lantus Solostar Pen 100 units/mL subcutaneous solution)???Insulin Lispro (HumaLOG KwikPen 200 units/mL (Concentrated) subcutaneous solution)???Lidocaine/Prilocaine Topical (lidocaine- prilocaine 2.5%-2.5% topical cream)???Lisinopril (lisinopril 20 mg oral tablet)???Miscellaneous Rx (FREESTYLE PREC KIMBERLY TEST STRIPS)???Miscellaneous Rx (FreeStyleLibre reader)???Miscellaneous Rx (FreeStyle Froylan sensors)???Multivitamin???PROCHLORperazine (prochlorperazine 10 mg oral tablet)???sodium bicarbonate (sodium bicarbonate 650 mg oral tablet) Immunizations during Hospitalization Vaccine Date Status SARS-CoV-2(COVID-19)mRNA-LNP vac([id number]) 06/10/2023 Recorded influenza virus vaccine, inactivated 06/03/2023 Recorded pneumococcal 20-valent conjugate vaccine 07/24/2022 Recorded [id number] bivalent booster vax 05/22/2022 Recorded influenza virus vaccine, inactivated 05/11/2022 Recorded SARS-CoV-2 (COVID-19) mRNA-1273 vaccine 06/14/2021 Recorded influenza virus vaccine, inactivated 04/14/2021 Recorded SARS-CoV-2 (COVID-19) mRNA BNT-162b2 vac 11/03/2020 Recorded SARS-CoV-2 (COVID-19) mRNA BNT-162b2 vac 10/13/2020 Recorded influenza virus vaccine, inactivated 04/01/2020 Recorded tetanus/diphtheria/pertussis, acel(Tdap) 02/03/2020 Recorded influenza virus vaccine, inactivated 05/12/2019 Recorded influenza virus vaccine, inactivated 05/07/2018 Recorded Patient Instructions Please stop the following home medications: Lisinopril - please do not continue this medication until you see Dr. Carney. Your visit is scheduled for 09/18 at 2:30pm. ?? Please take your blood pressure once every day. If the top number is above 140 or the bottom numberis above 90, please call Dr. Olivares at the number below. ?? New Medications: Sodium bicarbonate - this medication is to increase your bicarbonate levels to help your kidney function. You should take this three times per day. When you see your kidney doctor, they can decide ifyou should keep taking this medication. This medication [facility] been [facility] to the [facility] pharmacyfor you or your to pick and shovel man??when you leave the hospital. ?? You are still at high risk for infection because of chemotherapy, so consider wearing a mask when out in public and try not to spend time with people who you know are sick.? Appointments:?? 09/16/24: Pre-chemo labs at 1045, port draw prior to cycle 2 day 1 chemotherapy with Carboplatin/Gemzar 09/18/24: Renal appt with Dr. Carney at 2:30pm ?? Please also call your doctor if you note any of the following symptoms: - fever of 100.4 or greater - heavy vaginal bleeding - foul-smelling vaginal discharge - difficulty or burning with urination - nausea and vomiting with inability to tolerate food - pain not controlled by your prescribed medications - redness/swelling/drainage at incision(s) - shortness of breath or chest pain ? OFFICE INFORMATION [facility] [place] [address] Office * Marshall HERNANDEZ, Faith Barber: PERFORM Event Display: Discharge/Transfer Note Hospital Authored Date: [id number] Attending attestation: I have seen and evaluated this patient.?? I have discussed the case and its management with the resident and agree with the findings and plan as documented in the resident's note ?? feels well ready for dc ?? vitals normal exam benign ?? labs reviewed ?? Plan: -lokelma x1 as anticipate rise in K outpt and it is the high end of normal. repeat labs tues for chemo. hold lisinopril. will take bp daily and call w hypertension -completed neupogen -last dose of abx today ?? Faith Olivares MD Gynecologic Oncology Attending * Bonilla ZAMUDIO, Abeba: PERFORM Event Display: Patient Education/Instruction Authored Date: [id number] Inpatient Adult Discharge Instructions. [address] [id number] Name: ALEJANDRA SCHULZ : 1960?? Visit: 09/05/2024 16:15?? Current Date: 09/12/2024 14:18 ?? Account: [id number]?? Inpatient Adult Discharge Instructions We would like to thank you for allowing us to assist you with your healthcare needs. The following includes patient education materials and information regarding your injury/illness. Our entire staffstrives to provide an excellent experience for our patients and their families. PLEASE ENSURE YOU FOLLOW-UP PER THE INSTRUCTIONS BELOW! ?? YOUR OPINION IS IMPORTANT TO US! Please complete the survey you may receive by mail or email. Your feedback will be used to make improvements to the healthcare experiences of our patients and their families. Surveys are administered by [employer] ?? If further treatment with your primary care physician or another doctor is recommended, it is important for you to keep the appointment. Call your primary care physician or return to the Emergency Department immediately if your condition worsens, fails to improve, or new symptoms develop. If you need to find a doctor, you can call [facility] for a referral at [phone] or toll free at [phone]) or log in to [email or web address].. ?? Critical [facility] Hospital, in keeping with [facility] guidance, no longer requires face masks for staff, patientsor visitors in most situations. Similiar to time spent indoors at other locations, there is the chance that you were exposed to repiratory viruses during your time with us (such as flu or COVID-19). If you develop symptoms concerning for a viral respiratory infection, please seek testing (and treatment if indicated) from your medical provider or home test kit. ?? You can view and manage your care through the patient portal or by using a health care sonu of your choosing. [employer] is a website that allows you to securely view your medical information including your hospital discharge summary, office visit summaries, medications and follow-up visits. You can also request appointments, renew medications, and request access to your medical information using a health care sonu of your choosing, or just ask a question. You are entitled to know the individuals who participated in your treatment. This information is available within your medical record and will be provided upon your request. You can enroll at [email or web address] or register d uring your next office visit. You have been discharged from [facility], Patient Care Unit: SW6??. If you have any questions regarding these instructions, including results of studies pending, afteryou leave, please call us and we will be happy to assist you 21/01. [facility] Your Care Team Attending Physician Lilian Fan MD?? Consulting Providers Lilian Fan MD?? Discharging Providers Beatriz Clifford MD Reason for Your Visit pt coming from home c/o nose bleed that started last pm. Blee dnow controlled, pt woke up this AM wworsening nosebleed. Not on thinners. a&ox4?? Your Diagnosis Diabetes mellitus type 2 Cancer of right fallopian tube HTN (hypertension) Hyperlipidemia JAVI (acute kidney injury) Anemia Cancer of right fallopian tube Complicated UTI (urinary tract infection) Epistaxis HTN (hypertension) Hyperkalemia Port-A-Cath in place Severe neutropenia Thrombocytopenia Tests Performed Below is a partial list of the tests performed during your hospitalization. You may have had other tests and procedures not included in this list. Please discuss all test results with your provider. Basic Metabolic Panel Blood Culture Blood Culture #2?-- Results Pending -- Blood Culture 2 Results Blood Culture Result CBC w/ Differential COVID-19, RSV, and Flu A/B, Rapid PCR GLUCOSE POC HOLD GEL TUBE HOLD LAVENDER TUBE HOLD URINE, HEMATOLOGY Ionized Calcium Magnesium Level Phosphorus Level Potassium Level PT (INR) PTT Type and Screen Urine Chloride Urine Creatinine Urine Culture Urine Culture Result Urine K Urine Na CXR Portable Add On Lab Order?? Basic Metabolic Panel?? Blood Culture?? Blood Culture #2?? Blood Culture 2 Results?? Blood Culture Result?? CBC w/ Differential?? COVID-19, RSV, and Flu A/B, Rapid PCR?? Chloride Urine (Urine Chloride)?? Creatinine Urine (Urine Creatinine)?? Glucose POC?? Hold Gel Top Tube (HOLD GEL TUBE)?? Hold Lavender Top Tube (HOLD LAVENDER TUBE)?? Hold Urine (HOLD URINE, HEMATOLOGY)?? INR (PT (INR))?? Ionized Calcium?? Magnesium Level (MAGNESIUM)?? PTT?? Phosphorus Level?? Potassium Level?? Potassium Urine (Urine K)?? Sodium Urine (Urine Na)?? Transfuse Platelets?? Transfuse RBCs?? Type and Screen?? Urine Culture?? Urine Culture Result?? Chest Portable (CXR Portable)?? Primary Care Provider Ilene Arvizu MD? Advance Directive Health Care Proxy on File Yes - Health Care Proxy Discharge Vitals Temperature: 99.1 DegF Height: 162 cm Pulse Rate: 85 bpm Weight: 99.1 kg Respiratory Rate: 17 br/min Body Mass Index:??38.1 kg/m2??Critical Systolic Blood Pressure: 136 mm Hg Body surface area: 2.12 Diastolic Blood Pressure: 56 mm Hg ?? Oxygen Saturation: 98 % ?? Studies Pending All studies ordered during this hospital stay have been completed unless listed below. Please discuss all pending results with your provider listed above in these instructions. ?? Add On Lab Order?? Basic Metabolic Panel?? Blood Culture #2?? CBC w/ Differential?? Ionized Calcium?? Magnesium Level?? Phosphorus Level?? Transfuse Platelets?? Transfuse RBCs?? What to do next Instructions From Your Doctor Please stop the following home medications: Lisinopril - please do not continue this medication until you see Dr. Carney. Your visit is scheduled for 09/18 at 2:30pm. ?? Please take your blood pressure once every day. If the top number is above 140 or the bottom numberis above 90, please call Dr. Olivares at the number below. ?? New Medications: Sodium bicarbonate - this medication is to increase your bicarbonate levels to help your kidney function. You should take this three times per day. When you see your kidney doctor, they can decide ifyou should keep taking this medication. This medication has been sent to the [facility] pharmacyfor you or your to pick and shovel man??when you leave the hospital. Levofloxacin??- This is the antibiotic you received in the hospital. You need 1 additional dose theevening of 09/12/24, and this has been sent to the [facility] pharmacy. ?? You are still at high risk for infection because of chemotherapy, so consider wearing a mask when out in public and try not to spend time with people who you know are sick.? Appointments:?? 09/16/24: Pre-chemo labs at 1045, port draw prior to cycle 2 day 1 chemotherapy with Carboplatin/Gemzar 09/18/24: Renal appt with Dr. Carney at 2:30pm ?? Please also call your doctor if you note any of the following symptoms: - fever of 100.4 or greater - heavy vaginal bleeding - foul-smelling vaginal discharge - difficulty or burning with urination - nausea and vomiting with inability to tolerate food - pain not controlled by your prescribed medications - redness/swelling/drainage at incision(s) - shortness of breath or chest pain ? OFFICE INFORMATION [address] [place] [address] Office ?? Orders?? , ??Discharge home after patient receives Lokelma, ??09/12/24 11:19:00 EDT?? Discharge Medications ALEJANDRA SCHULZ :1960 Visit Date:09/05/2024 Medications: Please continue your medications until treatment is completed or stopped by your provider. Medications not listed below should be discontinued. Discuss any questions related to medications with your provider. What How Much When Instructions Next Dose New Levofloxacin (levoFLOXacin 750 mg oral tablet) 1 tab(s) Oral Once Take one tablet the evening of ?? Pickup at [facility] 3 09/12/24 tonight New sodium bicarbonate (sodium bicarbonate 650 mg oral tablet) 1 tab(s) Oral 3 times a day Duration: 30 Days Pickup at [facility] 3 09/12/24 tonight Unchanged Amlodipine (amLODIPine 10 mg oral tablet) 1 tab(s) Oral Daily Duration: 90 Days 09/13/24 am Unchanged Aspirin 81 Milligram Oral Daily 09/13/24 am Unchanged Atorvastatin (atorvastatin 80 mg oral tablet) 1 tab(s) Oral Daily at Bedtime 09/12/24 tonight Unchanged Cyanocobalamin (Vitamin B-12 100 mcg oral tablet) 1 tab(s) Oral Daily 09/13/24 am Unchanged Durable Medical Equipment (Pen Kennard, 32 G x 4 mm BD Ultra Fine III) See instructions e11.9 Use 3 times daily with Lantus and Humalog. 90 days ?? as directed Unchanged Gabapentin (gabapentin 300 mg oral capsule) See instructions TAKE 2 CAPSULES EVERY MORNING AND TAKE 3 CAPSULES EVERY DAY AT BEDTIME ?? 09/12/24 bedtime Unchanged Hydrocortisone Topical (hydrocortisone 2.5% topical cream) 1 sonu Topically 3 times a day as directed Unchanged Insulin Glargine (Lantus Solostar Pen 100 units/ mL subcutaneous solution) See instructions INJECT 60 UNITS SUBCUTANEOUSLY AT BEDTIME NO FURTHER REFILLS WITHOUT FOLLOW UP APPOINTMENT ?? as directed Unchanged Insulin Lispro (HumaLOG KwikPen 200 units/ mL (Concentrated) subcutaneous solution) See instructions INJECT SUBCUTANEOUSLY 3 TIMES DAILY WITH MEALS, MAX DAILY DOSE 90 UNITS ?? 09/12/24 before dinner Unchanged Lidocaine/ Prilocaine Topical (lidocaine-prilocaine 2.5%-2.5% topical cream) See instructions apply to [facility] 30-60min prior to each chemotherapy session ?? as directed Unchanged Lisinopril (lisinopril 20 mg oral tablet) 10 Milligram Oral Daily 09/12/24 as directed Unchanged Miscellaneous Rx (FreeStyle Froylan reader) See instructions Use to read Froylan Sensor 5x daily, can also use to test BG 2x daily, DxE10.9 ??[facility]# [id number] ?? as directed Unchanged Miscellaneous Rx (FreeStyle Froylan sensors) See instructions change every 14 days, ??(3 each/ sensors/ month), E11.9 ?? as directed Unchanged Miscellaneous Rx (FREESTYLE PREC KIMBERLY TEST STRIPS) See instructions USE DIRECTED 4 TIMES A DAY ?? as directed Unchanged Multivitamin as directed Unchanged PROCHLORperazine (prochlorperazine 10 mg oral tablet) 1 tab(s) Oral Every 6 hours as needed for Nausea as needed Pharmacy Information [facility] 3: [address] [place], [place] [id number] [phone] Prescription Given During Visit Levofloxacin (levoFLOXacin 750 mg oral tablet) - 1 tablet = 750 mg, By Mouth, Once, # 1 tablet, 0 Refills, Take one tablet the evening of 09/12/24, [facility] [address], [address] [place] [address] [phone]?? sodium bicarbonate (sodium bicarbonate 650 mg oral tablet) - 1 tablet = 650 mg, By Mouth, 3 times aday, # 90 tablet, 0 Refills, [facility] [address], [address] [place] [address] [phone]?? Laboratory Results Below is a partial list of the most recent Laboratory test results done prior to this discharge. You may have had other tests and procedures not included in this list. Please discuss all test resultswith your provider. Est Creatinine Clearance - 48.81 mL/min (09/12/2024) PLT Available - PT (09/06/2024) PLT Unit ID - [id number] (09/06/2024) RBC Available - PT (09/10/2024) RBC Unit ID - [id number] (09/10/2024) Basic Metabolic Panel (09/12/2024) ???Sodium - 136 mmol/L???Potassium - HEMOLYZED???Chloride - 107 mmol/L???Bicarbonate Level - 18 mmol/L???Anion Gap - 11 mmol/L???Glucose Level - 121 mg/dL???BUN - 25 mg/dL???Creatinine-Blood - 0.97 mg/dL???Estimated GFR Creatinine - 64 ML/MIN/1.73 M2???Calcium - 8.7 mg/dL Blood Culture (09/06/2024) ???Blood Culture Results - Final report???Blood Culture Specimen Source - BLOOD Blood Culture 2 Results (09/06/2024) ???Blood Culture 2 Isolate 1 - Comment Blood Culture Result (09/06/2024) ???Blood Culture Isolate 1 - Comment CBC w/ Differential (09/12/2024) ???WBC - 12.3 k/mm3???RBC - 2.78 m/mm3???Hgb - 8.9 Gm/dL???Hct - 26.7 %???MCV - 96.0 femtoliters???MCH - 32.0 pg???MCHC - 33.3 Gm/dL???Platelet Count - 118 k/mm3???RDW-SD - 52.5 femtoliters???MPV - 12.3 femtoliters???Nucleated RBC (Automated) - 0.6 #/100 WBC'S???Abs. NRBC - 0.1 k/mm3???Abs. Neut - 8.7 k/mm3???Abs. Lymph - 2.1 k/mm3???Abs. Lamoure - 1.0 k/mm3???Abs. Eo - 0.3 k/mm3???Abs. Baso - 0.0 k/mm3???Neut % - 60.4 %???Lymph % - 17.2 %???Lamoure % - 7.8 %???Eos % - 2.6 %???Baso % - 0.0 %???Metamyelocyte % - 1.7 %???Band % - 10.3 % COVID-19, RSV, and Flu A/B, Rapid PCR (09/06/2024) ???Influenza A PCR - NEGATIVE???Influenza B PCR - NEGATIVE???RSV PCR - NEGATIVE???COVID-19 PCR Specimen Source - NASAL???COVID-19 PCR Result - NEGATIVE GLUCOSE POC (09/12/2024) ???Glucose, POC - 167 mg/dL HOLD GEL TUBE (09/06/2024) ???Hold Gel Top - SPECIMEN DISCARDED AFTER 1 WEEK HOLD LAVENDER TUBE (09/06/2024) ???Hold Lavender Top - SPECIMEN DISCARDED AFTER 24 HOURS. HOLD URINE, HEMATOLOGY (09/06/2024) ???Hold Urine - Testing Available 24 hours from Time of Collection Ionized Calcium (09/12/2024) ???Calcium, Ionized pH Corrected - 1.18 mmol/L Magnesium Level (09/12/2024) ???Magnesium - 1.6 mg/dL Phosphorus Level (09/12/2024) ???Phosphorus - HEMOLYZED Potassium Level (09/12/2024) ???Potassium - 5.2 mmol/L PT (INR) (09/05/2024) ???INR - 1.0???Protime (PT) - 10.9 seconds PTT (09/05/2024) ???APTT - 28.8 seconds Type and Screen (09/09/2024) ???Blood Type - A Positive???Antibody Screen - Negative Urine Chloride (09/10/2024) ???Chloride, Urine Random - 84 mmol/L Urine Creatinine (09/10/2024) ???Creatinine, Urine Random - 82.8 mg/dL Urine Culture (09/06/2024) ???Urine Culture Results - Final report???Urine Culture Specimen Source - URINE Urine Culture Result (09/06/2024) ???Urine Culture Isolate 1 - Enterococcus faecalis???Urine Cult Antimicrobial Susceptibility - Comment Urine K (09/10/2024) ???Potassium, Urine Random - 24.9 mmol/L Urine Na (09/10/2024) ???Sodium, Urine Random - 92 mmol/L You will be contacted within 72 hours with your results. Allergies (NKA means No Known Allergies) Bee Stings Tape??(surgical - blisters @ site) Victoza??(N,V,D tried 3 times) glipizide-metformin??(gi upset) Problems Active Problems??(18) Acute cystitis?? Antineoplastic chemotherapy induced anemia?? Breast cancer?? Breast reconstruction?? Cancer of right fallopian tube?? Chemotherapy-induced nausea?? Diabetes mellitus type 2?? Dupuytren's disease of palm?? Dyspnea on exertion?? Elevated CA-125?? HTN (hypertension)?? Hyperlipidemia?? Leukocytes in urine?? Maintenance antineoplastic chemotherapy?? Pulmonary embolism?? Renovascular hypertension?? Severe obesity (BMI 35.0-39.9) with comorbidity?? Wound dehiscence?? Education Materials Below is the list of Educational Leaflet Providered with your Discharge Instructions. Valuables and Belongings I fully understand and agree that [facility] accepts no responsibility for all my personal property including clothing, toilet articles, radios, jewelry, dentures, hearing aids, rings, money, or any other property that is in my possession or is brought to me after admission. I understand certain valuables may be placed in a hospital safe for a short period of time. I understand that the hospital is not liable for loss or damage due to accident, fire, or other natural occurrence while said property is in the safe. I accept full responsibility for any personal property that I keep with me, and will not hold the hospital responsible in case of loss or disappearance. I acknowledge that i have been encouraged to send valuables and belongings home. ?? Review of Valuable and Belonging List: With patient Date for Pt to Sign Valuables/Belongings: 09/07/24 18:40:00 ?? Other Discharge Information ? Pulmonary Rehab Status?? Pulmonary Rehab Discharge Status?? Respiratory Rate: 17 br/min ? Common Emergency Awareness Tips IS IT A STROKE? Act FAST and Check for these signs: FACE Does the face look uneven? ARM Does one arm drift down? SPEECH Does their speech sound strange? TIME Call at any sign of stroke ?? Heart Attack Signs Chest discomfort: Most heart attacks involve discomfort in the center of the chest and lasts more than a few minutes, or goes away and comes back. It can feel like uncomfortable pressure, squeezing, fullness or pain. Discomfort in upper body: Symptoms can include pain or discomfort in one or both arms, back, neck, jaw or stomach. Shortness of breath: With or without discomfort. Other signs: Breaking out in a cold sweat, nausea, or lightheaded. Remember, MINUTES DO MATTER. If you experience any of these heart attack warning signs, call to get immediate medical attention! ?? Smoking can increase your chances of developing chronic health problems and can cause harmful effects to other family members in your house. If you smoke, you are strongly encouraged to quit. Please call [facility] at [phone] or [phone] ([phone]) or log in to [email or web address] for referrals to smoking cessation programs. ?? 684 Suicide & Crisis Lifeline is available 21/01 if you or someone you know needs to find a reason to keep living. By calling 207 you'll be connected to a skilled, trained counselor at a crisis center in your area. INPATIENT DISCHARGE INSTRUCTIONS SIGNATURE PAGE ALEJANDRA SCHULZ Location:[facility] Registration Date and Time:09/05/2024 16:15 EST Primary Care Physician: Ilene Arvizu MD, Attending Physician: Lilian Fan MD, I ALEJANDRA SCHULZ, have received the above patient education materials/instructions and have verbalized understanding. If ambulance or transport services are being used I further acknowledge being given a choice of service. ?? If you need to contact me, please call me at this number: . Patient/Services Coordinator Name: Patient/Services Coordinator Signature: Relationship to Patient: Witness Name/Signature: Date: * Event Display: Provider Clarification Note Please click on pdf link to open report Consult note * Aakash HERNANDEZ, Magalis: PERFORM, MODIFY Event Display: Consultation Note Authored Date: [id number] Patient: ??ALEJANDRA SCHULZ ? Age:??64 Years?Sex:??Female?:??1960?? Chief Complaint/Reason for Consultation pt coming from home c/o nose bleed that started last pm. Blee dnow controlled, pt woke up this AM wworsening nosebleed. Not on thinners. a&ox4 History of Present Illness Date of exam: 09/09/2024 ?? 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 Admitted to [facility] service on 09/05/2024 for epistaxis and thrombocytopenia.?? Received 2 units of platelets and 1 unit PRBC, with improvement in platelet coutnand H&H.??Nosebleed resolved.?? Developed fever on 09/06/2024.?? Was neutropenic.?? Started on empiric antibiotics.?? Urine cultures growing Enterococcus faecalis, antibiotics switched to levofloxacin.?? Blood cultures and port cultures with no growth to date.?? Currently receiving daily Neupogen.?? Also noted to have acute kidney injury for which she received IV fluids.?? Noted to be hyperkalemic with a potassium at 5.4, now increased to 5.6.?? Hospitalist service consulted for further evaluation of hyperkalemia. ?? During my exam, she feels okay.?? Denies any chest pain, shortness of breath, nausea, vomiting.?? Tolerating p.o. well.?? No abdominal pain.?? No dysuria.?? Rest of ROS negative. Review of Systems Constitutional: No fevers, chills HEENT: No headache, rhinorrhea, difficulty swallowing, blurry vision Cardiovascular: No chest pain Respiratory: No shortness of breath, no cough, no wheezing GI: No nausea, no vomiting, no abdominal pain, no change in bowel habits Neuro: No weakness, numbness, tingling in extremities Psych: No acute behavioral changes Muscular skeletal: No joint or muscle pain Endocrine: No recent weight loss or gain, no change in appetite : No dysuria or hematuria Objective Vital Signs?? Temperature: 98.6 DegF (09/09/24 15:41:00) Temperature Route: Oral (09/09/24 15:41:00) Pulse Rate: 85 bpm (09/09/24 15:41:00) Respiratory Rate: 17 br/min (09/09/24 15:41:00) Systolic Blood Pressure: 119 mm Hg (09/09/24 15:41:00) Diastolic Blood Pressure:??52 mm Hg??Low (09/09/24 15:41:00) Blood pressure sites: Arm, left (09/09/24 08:29:00) Mean Arterial Pressure: 74 mm Hg (09/09/24 15:41:00) Pulse Pressure: 67 mm Hg (09/09/24 15:41:00) Oxygen Saturation: 99 % (09/09/24 15:41:00) Mode of Delivery (Oxygen): Room air (09/09/24 15:41:00) Early Warning Score: 6 (09/09/24 16:39:09) ? 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 Hyperkalemia (E87.5) JAVI (acute kidney injury) (N17.9) ? Potassium levels on admission were elevated at 5.3, since then has remained in the range of 4.9-5.4.??This afternoon, up trended to 5.6. EKG done, no acute hyperkalemic changes on EKG She was noted to have acute kidney injury on admission with creatinine up to 1.37, at baseline it looks like creatinine is between 0.99-1.07. Hyperkalemia likely related to acute kidney injury likely related to underlying acute infection, worsening anemia and dehydration Creatinine had started to improve and was down to 1.11 this morning, back up to 1.27 this afternoon ?? Hold lisinopril Recommend 1 dose of Lokelma 10 g p.o. Recheck potassium levels tonight and additional doses of Lokelma as needed Continue cardiac monitoring Check Mag level Check urine lytes Closely monitor kidney function and potassium levels, consider nephrology consult if kidney function fails to improve ?? Epistaxis (R04.0):??Resolved ?? Severe neutropenia (D70.9) Complicated UTI (urinary tract infection) (N39.0) ? Urine culture pos??for E faecalis Switched from Cefepime to Levofloxacin (dosing q48h d/t Cr) ?? Thrombocytopenia (D69.6):??Status post 2 units of platelet transfusion, platelet counts have remained??above 50 after transfusion ?? Anemia (D64.9):??Status post 1 unit PRBC transfusion.??Continue to monitor ?? Cancer of right fallopian tube (C57.01) Port-A-Cath in place (Z95.828) ? s/p debulking 11/[address] noted on CT 08/2024 C1D21??of carbo/gemzar chemo deferred until next week, prechemo??appt 09/16 ?? HTN (hypertension) (I10):??Continue amlodipine.??Hold lisinopril as above ?? Diabetes mellitus type 2 (E11.9):??Continue SSI, Lantus, POC glucose checks ?? Hyperlipidemia (E78.5):??Continue statin ?? Further management per primary team. Thank you for having us participate in this patient's care.??Hospitalist service will continue to follow. ? Histories Allergies Allergies ?(Active and Proposed Allergies Only) glipizide-metformin? (Severity: Unknown severity, Onset: Unknown) ?Reactions: gi upset Victoza? (Severity: Unknown severity, Onset: Unknown) ?Reactions: N,V,D tried 3 times Bee Stings? (Severity: Unknown, Onset: Unknown) Tape? (Severity: Unknown severity, Onset: Unknown) ?Reactions: surgical - blisters @ site ?Comments: TEGADERM ? Past Medical History/Problem List Active Problems(18) Acute cystitis Antineoplastic chemotherapy induced anemia Breast cancer Breast reconstruction Cancer of right fallopian tube Chemotherapy-induced nausea Diabetes mellitus type 2 Dupuytren's disease of palm Dyspnea on exertion Elevated CA-125 HTN (hypertension) Hyperlipidemia Leukocytes in urine Maintenance antineoplastic chemotherapy Pulmonary embolism Renovascular hypertension Severe obesity (BMI 35.0-39.9) with comorbidity Wound dehiscence ? 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 11-MAR-2018 23:08:33<$>: 10/11/06 History of right mastectomy Dilation and curettage ? Social History Alcohol Details:??Use: Never. Employment/School Details:??Status: Retired. Exercise Details:??Self assessment: Fair condition. ??Regular exercise: No. Home/Environment Details:??Living situation: Home/Independent. ??Lives with: Spouse. Nutrition/Health Details:??Diet: Regular. Sexual Details:??Sexually involved in last 6 months: No. Substance Abuse Details:??Use: Never. Tobacco Details:??Never smoker Electronic Cigarette/Vaping Details:??Electronic Cigarette Use: Never. ? Family History Mother: Alzheimer's disease Father: Hypertension; Non-Hodgkin's lymphoma Brother: Hypertension; Malignant melanoma Other??(maternal aunt): Cancer of breast; Cancer of ovary Aunt??(paternal aunt): Cancer of breast ? Medications Home Medications Amlodipine (amLODIPine 10 mg oral tablet)??10 Milligram 1 tablet By Mouth Daily for 90 Days Aspirin??81 Milligram By Mouth Daily Atorvastatin (atorvastatin 80 mg oral tablet)??1 tab(s) 80 Milligram By Mouth Daily at bedtime Cyanocobalamin (Vitamin B-12 100 mcg oral tablet)??1 tablet By Mouth Daily Durable Medical Equipment (Pen Kennard, 32 G x 4 mm BD Ultra Fine III)??See Instructions e11.9 Use 3 times daily with Lantus and Humalog. 90 days Gabapentin (gabapentin 300 mg oral capsule)??See Instructions TAKE 2 CAPSULES EVERY MORNING AND TAKE 3 CAPSULES EVERY DAY AT BEDTIME Hydrocortisone Topical (hydrocortisone 2.5% topical cream)??1 sonu Topically 3 times a day Insulin Glargine (Lantus Solostar Pen 100 units/mL subcutaneous solution)??See Instructions INJECT 60 UNITS SUBCUTANEOUSLY AT BEDTIME NO FURTHER REFILLS WITHOUT FOLLOW UP APPOINTMENT Insulin Lispro (HumaLOG KwikPen 200 units/mL (Concentrated) subcutaneous solution)??See Instructions INJECT SUBCUTANEOUSLY 3 TIMES DAILY WITH MEALS, MAX DAILY DOSE 90 UNITS Lidocaine/Prilocaine Topical (lidocaine-prilocaine 2.5%-2.5% topical cream)??See Instructions applyto portacath site 30-60min prior to each chemotherapy session Lisinopril (lisinopril 20 mg oral tablet)??10 Milligram By Mouth Daily Miscellaneous Rx (FreeStyle Froylan reader)??See Instructions Use to read Froylan Sensor 5x daily, can also use to test BG 2x daily, DxE10.9 ??[facility]# [id number] Miscellaneous Rx (FreeStyle Froylan sensors)??See Instructions change every 14 days, ??(3 each/sensors/month), E11.9 Miscellaneous Rx (FREESTYLE PREC KIMBERLY TEST STRIPS)??See Instructions USE DIRECTED 4 TIMES A DAY PROCHLORperazine (prochlorperazine 10 mg oral tablet)??1 tab(s) 10 Milligram By Mouth Every 6 hoursas needed Nausea ? Results Recent Labs BACTERIOLOGY Urine Culture Results Final report (Abnormal)?? 09/06/2024 17:00 Urine Culture Isolate 1 Enterococcus faecalis (Abnormal)?? 09/06/2024 17:00 Urine Cult Antimicrobial Susceptibility Comment ()?? 09/06/2024 17:00 ?? BLOOD BANK Blood Type A Positive ()?? 09/09/2024 07:58 Antibody Screen Negative ()?? 09/09/2024 07:58 RBC Unit ID [id number] ()?? 09/09/2024 08:43 RBC Available IS ()?? 09/09/2024 08:43 ?? BLOOD COUNT & DIFF WBC 1.5 k/mm3 (Critical)?? 09/09/2024 04:29 RBC 2.24 m/mm3 (Low)?? 09/09/2024 04:29 Hgb 7.2 Gm/dL (Low)?? 09/09/2024 04:29 Hct 22.2 % (Low)?? 09/09/2024 04:29 MCV 99.1 femtoliters ()?? 09/09/2024 04:29 MCH 32.1 pg ()?? 09/09/2024 04:29 MCHC 32.4 Gm/dL (Low)?? 09/09/2024 04:29 Platelet Count 77 k/mm3 (Low)?? 09/09/2024 04:29 RDW-SD 50.0 femtoliters (High)?? 09/09/2024 04:29 MPV 10.8 femtoliters ()?? 09/09/2024 04:29 Nucleated RBC (Automated) 2.0 #/100 WBC'S ()?? 09/09/2024 04:29 Abs. NRBC 0.0 k/mm3 ()?? 09/09/2024 04:29 Abs. Neut 0.3 k/mm3 (Low)?? 09/09/2024 04:29 Abs. Lymph 0.7 k/mm3 (Low)?? 09/09/2024 04:29 Abs. Lamoure 0.3 k/mm3 (Low)?? 09/09/2024 04:29 Abs. Eo 0.2 k/mm3 ()?? 09/09/2024 04:29 Abs. Baso 0.0 k/mm3 ()?? 09/09/2024 04:29 Neut % 17.1 % (Low)?? 09/09/2024 04:29 Lymph % 46.4 % (High)?? 09/09/2024 04:29 Lamoure % 19.7 % (High)?? 09/09/2024 04:29 Eos % 11.1 % (High)?? 09/09/2024 04:29 Baso % 0.0 % ()?? 09/09/2024 04:29 Promyelocyte % 0.9 % ()?? 09/09/2024 04:29 Myelocytes % 0.9 % ()?? 09/09/2024 04:29 Band % 0.9 % ()?? 09/09/2024 04:29 Nucleated RBC 3 /100 WBC ()?? 09/09/2024 04:29 RBC Morphology MODERATE ()?? 09/08/2024 05:25 Platelet Estimate DECREASED ()?? 09/09/2024 04:29 Imm Gran 0.0 % ()?? 09/08/2024 05:25 Abs. Imm Gran 0.0 k/mm3 ()?? 09/08/2024 05:25 ?? CHEM GENERAL Sodium 138 mmol/L ()?? 09/09/2024 14:22 Potassium 5.6 mmol/L (High)?? 09/09/2024 14:22 Chloride 110 mmol/L (High)?? 09/09/2024 14:22 Bicarbonate Level 18 mmol/L (Low)?? 09/09/2024 14:22 Anion Gap 10 mmol/L ()?? 09/09/2024 14:22 Glucose Level 152 mg/dL (High)?? 09/09/2024 14:22 Glucose, POC 215 mg/dL (High)?? 09/09/2024 16:37 BUN 27 mg/dL (High)?? 09/09/2024 14:22 Creatinine-Blood 1.27 mg/dL (High)?? 09/09/2024 14:22 Estimated GFR Creatinine 47 ML/MIN/1.73 M2 ()?? 09/09/2024 14:22 Calcium 8.9 mg/dL ()?? 09/09/2024 14:22 Calcium, Ionized pH Corrected 1.22 mmol/L ()?? 09/09/2024 04:29 Phosphorus 2.9 mg/dL ()?? 09/09/2024 04:29 Magnesium 1.8 mg/dL ()?? 09/09/2024 04:29 ?? URINE OTHER Est Creatinine Clearance 37.28 mL/min ()?? 09/09/2024 15:13 ? Image ?XR Chest Portable??09/06/2024 15:21 by Penelope Brown ? Patient Care team information Care Team Personnel Name: Ilene Arvizu MD Position: [facility] Outreach Member Role: PCP Address: [address] [place] [address] [address] [facility] [place] [address]- Telecom: Name: Janice Zepeda RN Position: [facility] RN Member Role: Primary Care Nurse Name: Lorraine Blanc RN Position: [facility] RN Member Role: Primary Care Nurse Name: Abel Rob RN Position: [facility] RN Member Role: Primary Care Nurse Name: Pino Moulton RN Position: [facility] RN Member Role: Primary Care Nurse Name: Leigh Ann Morris RN Position: [facility] RN Member Role: Primary Care Nurse Name: Rosario Andino RN Position: [facility] Onco RN Member Role: Primary Care Nurse Name: Abeba Franco RN Position: [facility] Onco RN Member Role: Primary Care Nurse Name: Baylee Mitchell RN Position: [facility] Onco RN Member Role: Primary Care Nurse Name: Ivan Lorenz MD Position: [facility] Physician - Oncology Member Role: [employer] Consulting Physician Address: [address] [place] [address] [place] [address]- Telecom: Name: Eva Sánchez RN Position: [facility] RN Member Role: Primary Care Nurse Name: Jay Vidales RN Position: [facility] Onco RN Member Role: Primary Care Nurse Name: Lyndsay Renee RN Position: [facility] Onco RN Member Role: Primary Care Nurse Name: Milly Barajas NP Position: [facility] Associate Professional Member Role: Primary Care Nurse Address: [address] [place] [address] [facility] [address] Telecom: Name: Nathaniel Vergara RN Position: [facility] RN Member Role: Primary Care Nurse Name: Beatriz Love RN Position: [facility] Onco RN Member Role: Primary Care Nurse Name: Xi Johnson RN Position: [facility] RN Member Role: Primary Care Nurse Care Team Related Persons Name: SCHULZSHEMAR Insurance Providers Guarantor name: ALEJANDRA SCHULZ Health Plan Information #: 1 Payer: [employer] Member Number: [id number] Policy Number: NA Group Number: [facility] Health Plan Information #: 2 Payer: [employer] Member Number: [id number] Policy Number: NA Group Number: NA
--- OUTSIDE RECORDS SUMMARY | 2024-09-18 16:38 | XMS_ITS | Continuity of Care Document ---
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 Name Role Phone Ilene Arvizu MD Primary Care Physician Encounter [facility] [place] Date(s): 09/01/24 - 09/01/[address] [address]- Encounter Diagnosis Thrombocytopenia(Final) - 09/01/24 Leukopenia(Final) - 09/01/24 Anemia(Final) - 09/01/24 Cancer of right fallopian tube(Discharge Diagnosis) - 09/01/24 HTN (hypertension)(Discharge Diagnosis) - 09/01/24 Diabetes mellitus type 2(Discharge Diagnosis) - 09/01/24 Discharge Disposition: A-D/C Home Attending Physician: Lilian [...] Recorded Vaccine Date Status Refusal Reason SARS-CoV-2(COVID-19)mRNA-LNP vac([id number]) 06/10/23 Recorded influenza virus vaccine, inactivated 06/03/23 Hari rded influenza virus vaccine, inactivated 05/11/22 Hari rded influenza virus vaccine, inactivated 04/14/21 Hari rded influenza virus vaccine, inactivated 04/01/20 Hari rded influenza virus vaccine, inactivated 05/12/19 Hari rded influenza virus vaccine, inactivated 05/07/18 Hari rded pneumococcal 20-valent conjugate vaccine 07/24/22 Recorded [id number] bivalent booster vax 05/22/22 Recorded SARS-CoV-2 (COVID-19) mRNA-1273 vaccine 06/14/21 R ecorded SARS-CoV-2 (COVID-19) mRNA BNT-162b2 vac 11/03/20 Recorded SARS-CoV-2 (COVID-19) mRNA BNT-162b2 vac 10/13/20 Recorded tetanus/diphtheria/pertussis, acel(Tdap) 02/03/20 Recorded Medications amLODIPine 10 mg oral tablet 10 mg, 1, tablet, By Mouth, Daily, # 90 tablet, Refills 1, Tot. Refills 1, Maintenance, 08/26/24 3:32:00 PM EST, Route to Pharmacy Electronically, [facility]/pharmacy #[id number], Partial fill upon patient requestif the prescription [...] use to test BG 2x daily, DxE10.9 [facility]# [id number], 09/22/20 9:58:00 AM EDT, Compound, 163, cm, [...] Replace Required Details, Route to Pharmacy Electronically, [id number], 160.8, cm, 06/17/24 8:38:00 EST, Height, 97.1, kg, 05/27/24 8:23:00 EST, Dry Weight Start Date: 06/25/24 Status: Ordered Quantity: 150.0 Unit: capsule Repeat number: 1 HumaLOG KwikPen 200 units/mL (Concentrated) subcutaneous solution See Instructions, INJECT SUBCUTANEOUSLY 3 TIMES DAILY WITH MEALS, MAX DAILY DOSE 90 UNITS, # 42 Unknown, 2 Refills, Maintenance, 07/13/24 1:39:00 PM EST, [id number], 160.8, cm, 07/08/24 14:12:00 EST, Height, 97.1, kg, 05/27/24 8:23:00 EST, Dry Weight Start Date: 07/13/24 Status: Ordered Quantity: 42.0 Unit: Unknown Repeat number: 1 hydrocortisone 2.5% topical cream 1 application, Topically, 3 times a day, # 28 Gm, 0 Refills, Maintenance, 01/29/24 12:19:00 PM EDT, Cream, [facility]/pharmacy #[id number], Partial fill upon patient request if the [...] 0 Refills, Maintenance, 12/03/23 1:15:00 PM EDT, [facility] STORE [id number], 160, cm, 12/01/23 4:27:00 EDT, Height, 100, kg, 12/01/23 7:35:00 EDT, Dry Weight Start Date: 12/03/23 Status: Ordered Quantity: 30.0 Unit: Unknown Repeat number: 1 lidocaine-prilocaine 2.5%-2.5% topical cream See Instructions, apply to [facility] 30-60min prior to each chemotherapy session, # 30 Gm, 2 Refills, Maintenance, 07/30/23 4:21:00 PM EST, [facility]/pharmacy #[id number], Partial fill upon patient request if [...] 07/04/23 Status: Ordered Repeat number: 1 Pen [place], 32 G x 4 mm BD Ultra [...] Nausea, # 30 tablet, 2 Refills, Maintenance, :22:00 AM EST, Tablet, [facility]/pharmacy #[id number], Partial fill upon patient request if the prescription is for a schedule II opioid drug., 160.6, cm, 08/20/24 9:02:00 EST, Height, 101.6, kg, 07/29/24 11:26:00 EST, Dry Weight Start Date: 08/20/24 Status: Ordered Quantity: 30.0 Unit: tablet Repeat number: 3 Vitamin B-12 100 mcg oral tablet 1, tablet, By Mouth, Daily, # 90 tablet, Refills 1, Maintenance, 05/17/24 10:28:00 PM EST, Route toPharmacy Electronically, [id number], 160.8, cm, 05/06/24 10:37:00 EST, Height, 86.5, [...] of breast cancer, underwent reconstruction with tissue outdoor fitness trainer and permanent implant onright side Diagnosis Diagnosis Type Effective Dates Health Status Cl inical Service Informant Cancer of right fallopian tube Discharge Diagnosis 09/01/24 HTN (hypertension) Discharge Diagnosis 09/01/24 Diabetes mellitus type 2 Discharge Diagnosis 09/01/24 Vital Signs Most recent to oldest [Reference Range]: 1 2 3 Height 161 cm (08/31/24 8:25 PM) 161 cm (08/31/24 8:08 PM) Weight 100 kg (08/31/24 8:25 PM) 100 kg (08/31/24 8:08 PM) Oxygen Saturation [94-100 %] 100 % (09/01/24 10:52 AM) 98 % (09/01/24 8:48 AM) 99 % (09/01/24 5:30 AM) Pulse Rate [55-90 bpm] 90 bpm (09/01/24 10:52 AM) 84 bpm (09/01/24 8:48 AM) 87 bpm (09/01/24 5:30 AM) Body Mass Index [18.5-24.99 kg/m2] 38.58 kg/m2 *>HHI* (08/31/24 8:08 PM) Blood Pressure [90-138/55-84 mm Hg] 122/47mm Hg (09/01/24 10:52 AM) 135/55mm Hg (09/01/24 8:48 AM) 127/59mm Hg (09/01/24 5:30 AM) Respiratory Rate [16-30 br/min] 18 br/min (09/01/24 10:52 AM) 18 br/min (09/01/24 8:48 AM) 16 br/min (09/01/24 5:30 AM) Temperature [96.8-100.4 DegF] 97.6 DegF (09/01/24 8:48 AM) 98.4 DegF (09/01/24 3:06 AM) 98.3 DegF (08/31/24 8:08 PM) Mode of Delivery (Oxygen) Room air (09/01/24 10:52 AM) Room air (09/01/24 8:48 AM) Room air (09/01/24 5:30 AM) Blood pressure sites Arm, left (09/01/24 10:52 AM) Arm, right (09/01/24 8:48 AM) Arm, right (09/01/24 3:06 AM) Temperature Route Oral (09/01/24 8:48 AM) Oral (09/01/24 3:06 AM) Oral (08/31/24 8:08 PM) Dry Weight 100 kg (08/31/24 8:25 PM) 100 kg (08/31/24 8:08 PM) Weight Obtained Via Standing scale (08/31/24 8:08 PM) Dry Weight Obtained Via Standing scale (08/31/24 8:08 PM) Social History Social History Type Response Smoking Status Never smoker entered on: 09/06/16 Sex Sex Representation Female (finding) History and physical note * Yamilet Orellana MD: PERFORM, MODIFY Event Display: History and Physical Hospital Authored Date: [id number] Patient: ??ALEJANDRA SCHULZ ? Age:??64 Years?Sex:??Female?:??1960?? 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 She notes that she often gets epistaxis??from time to time but that this had worsened over the past few days.??She notes that she had a nosebleed for about 30-45 minutes. She called the [facility] office about this who recommended??conservative measures but presentation to the ED if this worsened.She then presented to the ED last night due to persistence of this epistaxis and an episode that was not stopping in the afternoon. She tried humidified air and packing with cotton balls at home, pinc kathy her nose, but none of this stopped her bleeding.? She was brought into the ED for evaluation at 0530 this morning. Her packing was removed and Afrin applied to bilateral nares. She then had packing placed which saturated. She replaced this packing shortly after that herself, and on evaluation at 0730 and again at 0830 the packing was not saturatedand bleeding was stable. She has no other acute complaints. She does not report other bleeding aside from a small cut on her right ankle which has stopped bleeding, she is not sure when she had this cut but noticed it started bleeding yesterday.??She denies hematemesis, melena, hematuria, bruising.She denies any acute pain. ?? TREATMENT HISTORY: 1.??history of abdominal pain and [...] CARCINOMA OF THE RIGHT FALLOPIAN TUBE, CRS2 ?? Pathologic Stage Classification (pTNM, AJCC 8th Edition) ?TNM Descriptors:??y (post-treatment) pT Category:??ypT3b pN Category:??ypN not assigned (no nodes submitted or found) ?? FIGO Stage:??yIIIB ?? 5. Delayed in resuming treatment d/t wound dehiscence-??Resumed Avastin on 04/15/24 - 07/29/23. Avastin stopped prior to??next intended??dose??08/19/24 due to noted disease progression on PET 08/06/24and insurance refusal to cover. 6. Initiation??of??Carboplatin/gemzar WITHOUT avastin -??08/20/24 Review of Systems Constitutional:??No fever, chills or weakness?? HEENT:??No vision changes. Skin:??No rash or itching Cardiovascular:??No chest pain or palpitations Respiratory:??No shortness of breath Gastrointestinal:??No nausea, vomiting, diarrhea, or abdominal pain Genitourinary:??No burning, urinary frequency or incontinence Neurologic:??No headache, dizziness, syncope?? Psychiatric:??No depression or anxiety Physical Exam Vitals & Measurements T:??97.6?F?? HR:??90??(Peripheral)?? RR:??18?? BP:??122/47?? SpO2:??100%?? HT:??161??cm?? WT:??100??kg?? BMI:??38.58?? Exam limited as patient was in hallway bed. ?? General: pleasant, alert, cooperative, NAD HEENT: Normocephalic/atraumatic. Nares with??bilateral cotton material in place, no saturation or dripping Cardiac: RRR, S1&2, no murmurs.??Chest with left port in place. Respiratory: Equal air entry bilaterally with symmetrical chest wall movements, no crackles or wheeze Abdominal: Soft, non-tender, non-distended. Extremities: Symmetrical muscle bulk, no visible erythema or edema. 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 She is s/p afrin and??nasal??packing which has improved her??bleeding and she is no longer soaking through nasal packing, no saturation noted over several hours. ?? Given thrombocytopenia, plan admission for platelets transfusion (per ED provider, patient cannot receive??transfusion in ED without admission) with discharge after completion??of platelet transfusion. Patient is hemodynamically stable and without other acute complaints. Initially overnight observation as considered, however, given current immunocompromised status and patient uncomfortable with wearing face mask due to nasal packing, would be too high risk to remain in the ED awaiting bed placement. Patient was in agreement with this plan and desires??discharge home. Plan made for repeat outpatient CBC on . ?? Plan discussed with Dr. Fan, attending physician??as well primary oncologist Dr. Garcia ?? Epistaxis (R04.0):? s/p afrin, nasal??packing -continue conservative measures -return precautions reviewed ?? ENT recommendations??in case of worsening/readmission: -continue conservative measures -nasal packing with Surgicel -typically recommend afrin??use twice per day, but if acute bleeding episode, can use sooner than Q12h -if bleeding not resolved with the above and persistent dripping past packing for >15 minutes, recommend placement of Rhinorocket??(saline filled??nasal tamponade) to remain in place for duration of??2 days ?? Thrombocytopenia (D69.6):? C1D8: Plt??77?? 3/4: plt??28. (p) 1u platelets takes bASA at home, no other anticoagulation ( ) plan repeat CBC outpatient on , msg sent to office to order ?? Leukopenia (D72.819):? in setting of chemotherapy anticipate improvement in next week (CD14 - 21) ANC 1.0 ?? Anemia (D64.9):? in setting of chemotherapy anticipate improvement in next week (CD14 - 21) ?? Cancer of right fallopian tube (C57.01):? s/p debulking 11/2023 recent progression noted on CT 08/2024 C1D13 of carbo/gemzar ?? VTE Prophylaxis:? SCDs no medical anticoagulation ?VTE Prophylaxis Assessment:??VTE Prophylaxis Ordered ?? Active Problem List Active Problem List Acute cystitis: (Medical) Antineoplastic chemotherapy induced anemia: (Medical) Breast cancer: (Medical) Breast reconstruction: (Medical) Pt with hx of breast cancer, underwent reconstruction with tissue outdoor fitness trainer and permanent implant on right side Cancer [...] Breast reconstruction, immediate or delayed, with tissue outdoor fitness trainer, including subsequent expansion ? 11-MAR-2018 23:08:33<$>: 10/11/06 [...] use to test BG 2x daily, DxE10.9 ??[facility]# [id number] Miscellaneous Rx (FREESTYLE PREC KIMBERLY TEST STRIPS): [...] Hospital Authored Date: Attending attestation: I have seen and evaluated this patient. I have discussed the case and its management with the resident and agree with the findings and plan as documented in the resident's notewith the following additions/exceptions. Labs and imaging studies reviewed. ?? 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 Garcia who is arranging follow-up ?? Lilian Fan MD S Gynecologic Oncology ?? Note * Reyna HERNANDEZ, [facility]: PERFORM Event Display: Discharge/Transfer Note Hospital Authored Date: Patient: ??ALEJANDRA SCHULZ ? Age:??64 Years?Sex:??Female?:??1960?? 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 She is s/p afrin and??nasal??packing which has improved her??bleeding and she is no longer soaki ng through nasal packing, no saturation noted over several hours. No other sources of bleeding, no lightheadedness or dizziness.? Given thrombocytopenia, she??was??briefly??admitted??for platelet transfusion. At time of??discharge, patient is hemodynamically stable and without other acute complaints. Plan made for repeat outpatient CBC on . Objective/Physical Exam on Day of Discharge Vitals & Measurements T:??97.6?F?? HR:??90??(Peripheral)?? RR:??18?? BP:??122/47?? SpO2:??100%?? HT:??161??cm?? WT:??100??kg?? BMI:??38.58?? General:??pleasant, alert, cooperative, NAD HEENT:??Normocephalic/atraumatic.??Nares with??bilateral cotton material in place, no saturation ordripping Cardiac:??RRR, S1&2, no murmurs.??Chest with left port in place. Respiratory:??Equal air entry bilaterally with symmetrical chest wall movements, no crackles or wheeze Abdominal:??Soft, non-tender, non-distended. Extremities:??Symmetrical muscle bulk, no visible erythema or edema. 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 She is s/p afrin and??nasal??packing which has improved her??bleeding and she is no longer soaking through nasal packing, no saturation noted over several hours.??S/p 1unit of platelets and appropriate for discharge with close outpatient follow up. ?? Plan discussed with Dr. Fan, attending physician??as well primary oncologist Dr. Garcia ?? Epistaxis (R04.0):? s/p afrin, nasal??packing -continue conservative measures -return precautions reviewed ?? ENT recommendations??in case of worsening/readmission - see note 3/4 -continue conservative measures -nasal packing with Surgicel -typically recommend afrin??use twice per day, but if acute bleeding episode, can use sooner than Q12h -if bleeding not resolved with the above and persistent dripping past packing for >15 minutes, recommend placement of Rhinorocket??(saline filled??nasal tamponade) to remain in place for duration of??2 days ?? Thrombocytopenia (D69.6):? C1D8: Plt??77?? 3/4: plt??28. s/p 1u platelets takes bASA at home, no other anticoagulation ( ) plan repeat CBC outpatient on , msg sent to office to order ?? Leukopenia (D72.819):? in setting of chemotherapy anticipate improvement in next week (CD14 - 21) ANC 1.0 ?? Anemia (D64.9):? in setting of chemotherapy anticipate improvement in next week (CD14 - 21) ?? Cancer of right fallopian tube (C57.01):? s/p debulking 11/2023 recent progression noted on CT 08/2024 C1D13 of carbo/gemzar ?? VTE Prophylaxis:? SCDs no medical anticoagulation ?VTE Prophylaxis Assessment:??VTE Prophylaxis Ordered ?? Future Appointments 2024 9:00 AM EDT ?? With: Chioma HAMPTON, Masha Sidhu Where: [facility] [address] 4[address] [place] [address] [place] [address]- Status: Pending Discharge Medications ???Amlodipine (amLODIPine 10 mg oral tablet)???Aspirin???Atorvastatin (atorvastatin 80 mg oral tablet)???Cyanocobalamin (Vitamin B-12 100 mcg oral tablet)???Durable Medical Equipment (Pen [place], 32G x 4 mm BD Ultra Fine III)???Gabapentin (gabapentin 300 mg oral capsule)???Hydrocortisone Topical ( hydrocortisone 2.5% topical cream)???Insulin Glargine (Lantus Solostar Pen 100 units/mL subcutaneous solution)???Insulin Lispro (HumaLOG KwikPen 200 units/mL (Concentrated) subcutaneous solution)???Lidocaine/Prilocaine Topical (lidocaine- prilocaine 2.5%-2.5% topical cream)???Lisinopril (lisinopril 20 mg oral tablet)???Miscellaneous Rx (FREESTYLE PREC KIMBERLY TEST STRIPS)???Miscellaneous Rx (FreeStyleLibre reader)???Miscellaneous Rx (FreeStyle Froylan sensors)???Multivitamin???PROCHLORperazine (prochlorperazine 10 mg oral tablet) Immunizations during Hospitalization Vaccine Date Status SARS-CoV-2(COVID-19)mRNA-LNP vac([id number]) 06/10/2023 Recorded influenza virus vaccine, inactivated 06/03/2023 Recorded pneumococcal 20-valent conjugate vaccine 07/24/2022 Recorded [id number] bivalent booster vax 05/22/2022 Recorded influenza virus vaccine, inactivated 05/11/2022 Recorded SARS-CoV-2 (COVID-19) mRNA-1273 vaccine 06/14/2021 Recorded influenza virus vaccine, inactivated 04/14/2021 Recorded SARS-CoV-2 (COVID-19) mRNA BNT-162b2 vac 11/03/2020 Recorded SARS-CoV-2 (COVID-19) mRNA BNT-162b2 vac 10/13/2020 Recorded influenza virus vaccine, inactivated 04/01/2020 Recorded tetanus/diphtheria/pertussis, acel(Tdap) 02/03/2020 Recorded influenza virus vaccine, inactivated 05/12/2019 Recorded influenza virus vaccine, inactivated 05/07/2018 Recorded Follow-Up Appointments Repeat labs on 09/03. Please call with questions or concerns. Patient Instructions Please continue measures for nosebleeds including gauze as needed. You can use Afrin nasal spray twice per day at home for acute bleeding episodes. Please go to the lab on for repeat platelets to determine if another transfusion is needed and to determine next steps for treatment. ? Please call your doctor if you note any of the following symptoms: - fever of 100.4 or greater - heavy vaginal bleeding - foul-smelling vaginal discharge - difficulty or burning with urination - nausea and vomiting with inability to tolerate food - shortness of breath or chest pain * Lilian Fan MD: PERFORM Event Display: Discharge/Transfer Note Hospital Authored Date: [id number] Attending attestation: I have seen and evaluated this patient. I have discussed the case and its management with the resident and agree with the findings and plan as documented in the resident's notewith the following additions/exceptions. Labs and imaging studies reviewed. ?? 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 Garcia who is arranging follow-up ?? Lilian aFn MD S Gynecologic Oncology ?? Patient Care team information Care Team Personnel Name: Ilene Arvizu MD Position: [facility] Outreach Member Role: PCP Address: [address] [place] [address] [address] [place] [address]- [place] Telecom: Name: Janice Zepeda RN Position: [facility] RN Member Role: Primary Care Nurse Name: Lorraine Blanc RN Position: [facility] RN Member Role: Primary Care Nurse Name: Abel Rob RN Position: [facility] RN Member Role: Primary Care Nurse Name: Rosario Andino RN Position: [facility] Onco RN Member Role: Primary Care Nurse Name: Abeba Franco RN Position: [facility] Onco RN Member Role: Primary Care Nurse Name: Baylee Mitchell RN Position: [facility] Onco RN Member Role: Primary Care Nurse Name: Ivan Lorenz MD Position: [facility] Physician - Oncology Member Role: [employer] Address: [address] [place] [address] [place] [address]- Telecom: Name: Eva Sánchez RN Position: [facility] RN Member Role: Primary Care Nurse Name: Jay Vidales RN Position: [facility] Onco RN Member Role: Primary Care Nurse Name: Lyndsay Renee RN Position: [facility] Onco RN Member Role: Primary Care Nurse Name: Milly Barajas NP Position: [facility] Associate Professional Member Role: Primary Care Nurse Address: [address] [facility] [address]- [place] Telecom: Name: Nathaniel Vergara RN Position: [facility] RN Member Role: Primary Care Nurse Name: Love RN, Beatriz Position: [facility] RN Member Role: Primary Care Nurse Name: Xi Johnson RN Position: [facility] RN Member Role: Primary Care Nurse Care Team Related Persons Name: JAZZ SHEMAR Insurance Providers Guarantor name: ALEJANDRA SCHULZ Health Plan Information #: 2 Payer: [facility] PPO OR CAREL[employer] Member Number: [id number] Policy Number: NA Group Number: NA Health Plan Information #: 1 Payer: [employer] Member Number: [id number] Policy Number: NA Group Number: [facility] Health Plan Information #: 3 Payer: [employer] Member Number: [id number] Policy Number: NA Group Number: [facility]
--- OUTSIDE RECORDS SUMMARY | 2024-09-18 16:38 | XMS_ITS ---
Author Organization [facility] [place] Address [address] [facility] [place] [address] Care Team Providers Care Network Technician Name Role Phone Ilene Arvizu Primary Care Provider Jeanne Cole Unavailable [phone] Allergies No Known Allergies REASON FOR VISIT [...] Polyneuropathy due to type 2 diabetes mellitus (216583552) Type 2 diabetes mellitus with diabetic polyneuropathy (E11.42) Active confirmed Problem Polyneuropathy due to diabetes mellitus type I (817593537) Type 1 diabetes mellitus with diabetic polyneuropathy (E10.42) Active confirmed Problem Acquired hammer toe of right foot (9170914716520316 ) Other hammer toe(s) (acquired), right foot (M20.41) Active confirmed Problem Acquired hammer toe of left foot (4201591369673488 ) Other hammer toe(s) (acquired), left foot (M20.42) Active confirmed Problem 764709324 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.] to maintain effectiveness in symptomatic relief - 23810 Keratoma Treatment Parring or Cutting o f [...] power dremel instrumentation by the physician of [facility] - 86866 Progress Notes * Alejandra SCHULZ RDOB: 8 (64 yo F)Acc No.[id number]:07/07/2024 Progress Notes Patient:?Alejandra SCHULZ Provider:?Jeanne Gu DPM :1960???Age:64 Y???Sex:Female D ate:07/07/2024 Address:[address] [place] [address], [facility] Pcp:Ilene Arvizu Subjective: * Chief Complaints: * [...] 7.6 * Examination: ???Ophthalmology Referral: ?DIABETES EYE EXAM?Procedure Performed:?Yes ?Date of Exam Performed?09/30/2023 ?Findings of Diabetic Eye Exam:?no retinopathy?Neurological: ?SENSORY:?(DM/Neuro) Neurological exam demonstrates reduced sharp/dull pin [...] for office visit today.?ORIENTED:?person, place, and time.?FOOT EXAM:?Lower Extremity Neurological Exam performed:?Yes Date ?Visual exam of foot performed:?Yes ?Date?07/07/2024 ?Sensory testing performed:?sensations diminished ?Footwear Evaluation?Footwear Evaluation performed:?Yes??? Assessment: * Assessment: 1.?Other hammer toe(s) (acqu [...] use of a nail nipper and/or dremel-type ice grinder, to a more viable healthy nail [...] to maintain effectiveness in symptomatic relief - 66635.?Keratoma Treatment:?Parring or Cutting of Benign Hyperkeratotic Lesion(s)?(-56) [...] instrumentation by the physician of record - 04406.? * Procedure Codes:?69169 DEBRI DE NAIL, 6 OR MORE, Modifiers: XS 04832 TRIM SKIN LESIONS, 2 TO 4, Modifiers: [...] Provider:?Jeanne Gu DPM Date:?12/2024 Generated for Diane felix/Nohemi/Yosi on:?09/18/2024 04:38 PM EDT History and Physical Notes * HPI (History [...]
--- OUTSIDE RECORDS SUMMARY | 2024-09-18 16:39 | XMS_ITS | Continuity of Care Document ---
Author Organization [facility] Address [address] [place] [address]- Care Team Providers Care Raisin Separator Operator Name Role Phone Ilene Arvizu MD Primary Care Physician [phone] [place] [facility]): 08/17/24 - 09/16/24 [facility] [address] [place] [address] Encounter Type: Triage Allergies, Adverse Reactions, Alerts Substance Criticality Severity Reaction Reaction Severity Status Bee Stings Unable to assess criticality Unknown Active Tape 1 surgical - blisters @ site Active glipizide-metformi n gi upset Active Victoza N,V,D tried 3 times Active 1TEGADERM Immunizations Given and Recorded Vaccine Date Status Refusal Reason SARS-CoV-2(COVID-19)mRNA-LNP vac(agq960) 06/10/23 Recorded influenza virus vaccine, inactivated 06/03/23 Hari rded influenza virus vaccine, inactivated 05/11/22 Hari rded influenza virus vaccine, inactivated 04/14/21 Hari rded influenza virus vaccine, inactivated 04/01/20 Hari rded influenza virus vaccine, inactivated 05/12/19 Hari rded influenza virus vaccine, inactivated 05/07/18 Hari rded pneumococcal 20-valent conjugate vaccine 07/24/22 Recorded [id number] bivalent booster vax 05/22/22 Recorded SARS-CoV-2 (COVID-19) mRNA-1273 vaccine 06/14/21 R ecorded SARS-CoV-2 (COVID-19) mRNA BNT-162b2 vac 11/03/20 Recorded SARS-CoV-2 (COVID-19) mRNA BNT-162b2 vac 10/13/20 Recorded tetanus/diphtheria/pertussis, acel(Tdap) 02/03/20 Recorded Medications amLODIPine 10 mg oral tablet 10 mg, 1, tablet, By Mouth, Daily, # 90 tablet, Refills 1, Tot. Refills 1, Maintenance, 08/26/24 3:32:00 PM EST, Route to Pharmacy Electronically, [facility]/pharmacy #[id number], Partial fill upon patient requestif the prescription [...] use to test BG 2x daily, DxE10.9 [facility]# [id number], 09/22/20 9:58:00 AM EDT, Compound, 163, cm, [...] Replace Required Details, Route to Pharmacy Electronically, [facility] 88515, 160.8, cm, 06/17/24 8:38:00 EST, Height, 97.1, kg, 05/27/24 8:23:00 EST, Dry Weight Start Date: 06/25/24 Status: Ordered Quantity: 150.0 Unit: capsule Repeat number: 1 HumaLOG KwikPen 200 units/mL (Concentrated) subcutaneous solution See Instructions, INJECT SUBCUTANEOUSLY 3 TIMES DAILY WITH MEALS, MAX DAILY DOSE 90 UNITS, # 42 Unknown, 2 Refills, Maintenance, 07/13/24 1:39:00 PM EST, [facility] 15421, 160.8, cm, 07/08/24 14:12:00 EST, Height, 97.1, kg, 05/27/24 8:23:00 EST, Dry Weight Start Date: 07/13/24 Status: Ordered Quantity: 42.0 Unit: Unknown Repeat number: 1 hydrocortisone 2.5% topical cream 1 application, Topically, 3 times a day, # 28 Gm, 0 Refills, Maintenance, 01/29/24 12:19:00 PM EDT, Cream, [facility]/pharmacy #0693, Partial fill upon patient request if [...] 0 Refills, Maintenance, 12/03/23 1:15:00 PM EDT, [facility] STORE 68506, 160, cm, 12/01/23 4:27:00 EDT, Height, 100, kg, 12/01/23 7:35:00 EDT, Dry Weight Start Date: 12/03/23 Status: Ordered Quantity: 30.0 Unit: Unknown Repeat number: 1 levoFLOXacin 750 mg oral tablet 1 tablet = 750 mg, By Mouth, Once, Take one tablet the evening of 09/12/24, # 1 tablet, 0 Refills, Soft Stop, 09/12/24 10:31:00 AM EDT, Tablet, [facility], Partial fill upon patient request if the prescription is for a schedule II opioid drug., 162, cm, 09/11/24 16:00:00 EDT, Height, 100, kg, 09/05/24 19:08:00 EST, Dry Weight Start Date: 09/12/24 Status: Ordered Quantity: 1.0 Unit: tablet Repeat number: 1 lidocaine-prilocaine 2.5%-2.5% topical cream See Instructions, apply to [facility] 30-60min prior to each chemotherapy session, # 30 Gm, 2 Refills, Maintenance, 07/30/23 4:21:00 PM EST, [facility]/pharmacy #[id number], Partial fill upon patient request if the prescription is for a schedule II opioid drug., apply to [facility] 30-60min prior to eachchemotherapy session, 159.2, [...] 07/04/23 Status: Ordered Repeat number: 1 Pen [place], 32 G x 4 mm BD Ultra [...] 2 Refills, Maintenance, 259:22:00 AM EST, Tablet, [facility]/pharmacy #0693, Partial fill upon patient request if [...] AM EDT, 09/11/24 10:20:00 AM EDT, Tablet, [facility], Partial fill upon patient request if [...] 05/17/24 10:28:00 PM EST, Route toPharmacy Electronically, [facility] 34138, 160.8, cm, 05/06/24 10:37:00 EST, Height, 86.5, [...] of breast cancer, underwent reconstruction with tissue senior javascript engineer and permanent implant onright side Social History Social History Type Response Smoking Status Never smoker entered on: 09/06/16 Sex Sex Representation Female (finding) Patient Care team information Care Team Personnel Name: Ilene Arvizu MD Position: [facility] Outreach Member Role: PCP Address: [address] [place] [address] [address] [facility] [place] [address]- Telecom: Name: Janice Zepeda RN Position: [facility] RN Member Role: Primary Care Nurse Name: Lorraine Blanc RN Position: [facility] RN Member Role: Primary Care Nurse Name: Abel Rob RN Position: [facility] RN Member Role: Primary Care Nurse Name: Pino Moulton RN Position: [facility] RN Member Role: Primary Care Nurse Name: Leigh Ann Morris RN Position: [facility] RN Member Role: Primary Care Nurse Name: Rosario Andino RN Position: [facility] Onco RN Member Role: Primary Care Nurse Name: Abeba Franco RN Position: [facility] Onco RN Member Role: Primary Care Nurse Name: Baylee Mitchell RN Position: [facility] Onco RN Member Role: Primary Care Nurse Name: Ivan Lorenz MD Position: [facility] Physician - Oncology Member Role: Lifetime Consulting Physician Address: [address] [place] [address] [place] [address]- Telecom: Name: Eva Sánchez RN Position: [facility] RN Member Role: Primary Care Nurse Name: Jay Vidales RN Position: [facility] Onco RN Member Role: Primary Care Nurse Name: Lyndsay Renee RN Position: [facility] Onco RN Member Role: Primary Care Nurse Name: Milly Barajas NP Position: [facility] Associate Professional Member Role: Primary Care Nurse Address: [address] [place] [address] [address] [facility] [place], [place] [address] Telecom: Name: Nathaniel Vergara RN Position: [facility] RN Member Role: Primary Care Nurse Name: Beatriz Love RN Position: [facility] Onco RN Member Role: Primary Care Nurse Name: Xi Johnson RN Position: [facility] RN Member Role: Primary Care Nurse Care Team Related Persons Name: SHEMAR SCHULZ Insurance Providers Guarantor name: BALA SCHULZ Health Plan Information #: 1 Payer: [employer] Member Number: NA Policy Number: NA Group Number: NA
--- OUTSIDE RECORDS SUMMARY | 2024-09-18 16:39 | XMS_ITS ---
Author Organization [facility] Address [address] [place] [address] Care Team Providers Care Breaker Engineer Name Role Phone Jovanni Ortiz MD Primary Care Provider Lg Mixon [phone] SCAN Encounters Encounter Location Date Provider Diagnosis [facility] [address] [place] [address] 05/10/2023 Lg Howard Plan Of Treatment No Information Progress Notes * CORI SCHULZLUISOB:1960 (63 yo F)Acc No.[id number]:05/10/2023 Patient:?BALA SCHULZ :1960???Age:63 Y???Sex:Female Address:[address] [place] [address] * true * Date:? Generated for Diane felix/Nohemi/eTransmitting on:?09/18/2024 04:39 PM EDT
--- OUTSIDE RECORDS SUMMARY | 2024-09-18 16:39 | XMS_ITS ---
Author Organization [facility] Address [address] [place] [address] Care Team Providers Care Assisted Living Executive Director Name Role Phone Ilene Arvizu Primary Care Provider Jeanne Cole [phone] Encounters Encounter Location Date Provider Diagnosis [address] [address] 09/15/2024 Jeanne Gu Plan Of Treatment Next Appt Details Provider Name:Jeanne gonzales, 11/13/2024 12:30:00 PM, [address] [place] [address], [phone], Progress Notes * Alejandra SCHULZ RDOB: (64 yo F)Acc No.[id number]:09/15/2024 Progress Note Patient:?Kandi SCHULZgordon Scott Provider:?Jeanne Gu DPM :1960???Age:64 Y???Sex:Female D ate:09/15/2024 Address:[address] [place] [address] Pcp:Ilene Arvizu Subjective: * Chief Complaints: * ??? * Medical History:? Objective: * Vitals:? Assessment: Plan: * Treatment: * Images: * The named appointment provid er may or may not be the originator of this progress note, and it is not deemed complete until electronically signed by the appointment provider. Sign off status: Pending * Provider:?Jeanne Gu DPM Date:? Generated for Diane felix/Nohemi/Yosi on:?09/18/2024 04:38 PM EDT
--- OUTSIDE RECORDS SUMMARY | 2024-09-18 16:39 | XMS_ITS | Continuity of Care Document ---
Author Organization [facility] Address [address] [place] [address]- Care Team Providers Care Mat Tester Name Role Phone Ilene Arvizu MD Primary Care Physician Encounter [facility] Date(s): 07/30/24 - 09/06/24 [facility] [address] [place], [place] [address] Attending Physician: Mireille Garcia MD Admitting Physician: Mireille Garcia MD Encounter Type: Pre-OutPatient One Time Allergies, Adverse Reactions, Alerts Substance Criticality Severity Reaction Reaction Severity Status Bee Stings Unable to assess criticality Unknown Active Tape 1 surgical - blisters @ site Active glipizide-metformi n gi upset Active Victoza N,V,D tried 3 times Active 1TEGADERM Immunizations Given and Recorded Vaccine Date Status Refusal Reason SARS-CoV-2(COVID-19)mRNA-LNP vac(qge382) 06/10/23 Recorded influenza virus vaccine, inactivated 06/03/23 Hari rded influenza virus vaccine, inactivated 05/11/22 Hari rded influenza virus vaccine, inactivated 04/14/21 Hari rded influenza virus vaccine, inactivated 04/01/20 Hari rded influenza virus vaccine, inactivated 05/12/19 Hari rded influenza virus vaccine, inactivated 05/07/18 Hari rded pneumococcal 20-valent conjugate vaccine 07/24/22 Recorded [id number] bivalent booster vax 05/22/22 Recorded SARS-CoV-2 (COVID-19) mRNA-1273 vaccine 06/14/21 R ecorded SARS-CoV-2 (COVID-19) mRNA BNT-162b2 vac 11/03/20 Recorded SARS-CoV-2 (COVID-19) mRNA BNT-162b2 vac 10/13/20 Recorded tetanus/diphtheria/pertussis, acel(Tdap) 02/03/20 Recorded Medications amLODIPine 10 mg oral tablet 10 mg, 1, tablet, By Mouth, Daily, # 90 tablet, Refills 1, Tot. Refills 1, Maintenance, 08/26/24 3:32:00 PM EST, Route to Pharmacy Electronically, [facility]/pharmacy #[id number], Partial fill upon patient requestif the prescription [...] use to test BG 2x daily, DxE10.9 [facility]# [id number], 09/22/20 9:58:00 AM EDT, Compound, 163, cm, [...] Replace Required Details, Route to Pharmacy Electronically, [facility] 76352, 160.8, cm, 06/17/24 8:38:00 EST, Height, 97.1, kg, 05/27/24 8:23:00 EST, Dry Weight Start Date: 06/25/24 Status: Ordered Quantity: 150.0 Unit: capsule Repeat number: 1 HumaLOG KwikPen 200 units/mL (Concentrated) subcutaneous solution See Instructions, INJECT SUBCUTANEOUSLY 3 TIMES DAILY WITH MEALS, MAX DAILY DOSE 90 UNITS, # 42 Unknown, 2 Refills, Maintenance, 07/13/24 1:39:00 PM EST, [facility] 78039, 160.8, cm, 07/08/24 14:12:00 EST, Height, 97.1, kg, 05/27/24 8:23:00 EST, Dry Weight Start Date: 07/13/24 Status: Ordered Quantity: 42.0 Unit: Unknown Repeat number: 1 hydrocortisone 2.5% topical cream 1 application, Topically, 3 times a day, # 28 Gm, 0 Refills, Maintenance, 01/29/24 12:19:00 PM EDT, Cream, [facility]/pharmacy #[id number], Partial fill upon patient request if the [...] Maintenance, 12/03/23 1:15:00 PM EDT, [facility], 160, cm, 12/01/23 4:27:00 EDT, Height, 100, kg, 12/01/23 7:35:00 EDT, Dry Weight Start Date: 12/03/23 Status: Ordered Quantity: 30.0 Unit: Unknown Repeat number: 1 lidocaine-prilocaine 2.5%-2.5% topical cream See Instructions, apply to [facility] 30-60min prior to each chemotherapy session, # 30 Gm, 2 Refills, Maintenance, 07/30/23 4:21:00 PM EST, [facility]/pharmacy #[id number], Partial fill upon patient request if the prescription is for a schedule II opioid drug., apply to [facility] 30-60min prior to eachchemotherapy session, 159.2, [...] 07/04/23 Status: Ordered Repeat number: 1 Pen [place], 32 G x 4 mm BD Ultra [...] 2 Refills, Maintenance, 259:22:00 AM EST, Tablet, [facility], Partial fill upon patient request if [...] PM EST, Route toPharmacy Electronically, [facility], 160.8, cm, 05/06/24 10:37:00 EST, Height, 86.5, [...] of breast cancer, underwent reconstruction with tissue area representative and permanent implant onright side Social History Social History Type Response Smoking Status Never smoker entered on: 09/06/16 Sex Sex Representation Female (finding) Patient Care team information Care Team Personnel Name: Ilene Arvizu MD Position: [facility] Outreach Member Role: PCP Address: [address] [place] [address] [address] [facility] Primary Care [place] [id number]- Telecom: Name: Janice Zepeda RN Position: [facility] RN Member Role: Primary Care Nurse Name: Lorraine Blanc RN Position: [facility] RN Member Role: Primary Care Nurse Name: Darron ZAMUDIOAbel Position: [facility] RN Member Role: Primary Care Nurse Name: Leigh Ann oMrris RN Position: [facility] RN Member Role: Primary Care Nurse Name: Rosario Andino RN Position: [facility] Onco RN Member Role: Primary Care Nurse Name: Abeba Franco RN Position: [facility] Onco RN Member Role: Primary Care Nurse Name: Baylee Mitchell RN Position: [facility] Onco RN Member Role: Primary Care Nurse Name: Ivan Lorenz MD Position: [facility] Physician - Oncology Member Role: Lifetime Consulting Physician Address: [address] [place] [address] [place] [address]- Telecom: Name: Eva Sánchez RN Position: [facility] RN Member Role: Primary Care Nurse Name: Jay Vidales RN Position: [facility] Onco RN Member Role: Primary Care Nurse Name: Lyndsay Renee RN Position: [facility] Onco RN Member Role: Primary Care Nurse Name: Milly Barajas NP Position: [facility] Associate Professional Member Role: Primary Care Nurse Address: [address] [place] [address] [address] [facility] [place] [address]- Telecom: Name: Nathaniel Vergara RN Position: [facility] RN Member Role: Primary Care Nurse Name: Beatriz Love RN Position: [facility] Onco RN Member Role: Primary Care Nurse Name: Xi Johnson RN Position: [facility] RN Member Role: Primary Care Nurse Care Team Related Persons Name: JAZZ SHEMAR Insurance Providers Guarantor name: BALA SCHULZ Health Plan Information #: 2 Payer: [facility] PPO OR CARELNK Member Number: [id number] Policy Number: NA Group Number: NA Health Plan Information #: 1 Payer: [facility] MEDICARE PREF REPLC Member Number: [id number] Policy Number: NA Group Number: [id number]
--- OUTSIDE RECORDS SUMMARY | 2024-09-18 16:39 | XMS_ITS | Patient Health Record ---
Author Organization [facility] Address [address] [facility] [facility] [place] [address] Care Team Providers Care Typewriter Tester Name Role Phone Ilene Arvizu Primary Care Provider Jeanne Cole Unavailable [phone] Allergies No Known Allergies Results Component Value [...] Problem Acquired hammer toe of right foot (6289894808759196 ) Other hammer toe(s) (acquired), right foot (M20.41) Active confirmed Problem Acquired hammer toe of left foot (1053072978557972 ) Other hammer toe(s) (acquired), left foot (M20.42) Active confirmed Problem Polyneuropathy due to diabetes mellitus type I (690706205) Type 1 diabetes mellitus with diabetic polyneuropathy (E10.42) Active confirmed Problem Polyneuropathy due to type 2 diabetes mellitus (236132086) Type 2 diabetes mellitus with diabetic polyneuropathy (E11.42) Active confirmed Problem 359998121 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 Vital Signs Blood pressure diastolic 85 mm Hg 07/07/2024 Height 5 ft3in in 07/07/2024 Blood pressure systolic 134 mm Hg 07/07/2024 Weight 220 lbs 07/07/2024 BMI 38.97 kg/m2 07/07/2024 Encounters Encounter Location Date Provider Diagnosis [address] [address] 07/07/2024 Jeanne Gu Type 2 diabetes asuncion itus with diabetic polyneuropathy E11.42 ; Other hammer toe(s) (acquired), right foot M20.41 ; Tinea unguium B35.1 ; Other hammer toe(s) (acquired), left foot M20.42 ; Drug-induced polyneuropathy G62.0 and Adverse effect of antineoplastic and immunosuppressive drugs, initial encounter T45.1X5A [address] [address] 03/31/2024 [facility] [address] 09/11/2024 Jeanne Gu Assessments Encounter Date Diagnosis (ICD [...] Details Provider Name:Jeanne gonzales, 11/13/2024 12:30:00 PM, [address] [place], [address], Insurance Providers Payer Name Payer Address Payer Phone Subscriber Number Group Number Insured Name Patient Relationship to Insured Coverage Start Date Coverage End Date [address] [address] [id number] Alejandra Thompson Self - patient is the insured 4 Medical (General) History Medical History History ICD Code Cancer Diabetic Fibromyalgia High Blood Pressure Numbness Measles Mumps Chicken pox Infusions Surgical History Surgery Date(Month/Year) hysterectomy
--- OUTSIDE RECORDS SUMMARY | 2024-09-18 16:39 | XMS_ITS ---
Author Organization [facility] Address [address] [place] [address] Care Team Providers Care Tankerman Name Role Phone Jovanni Ortiz MD Primary Care Provider Lg Mixon [phone] REASON FOR VISIT up date Encounters Encounter Location Date Provider Diagnosis [facility] [address] [place] [address] 08/02/2023 Lg Howard Plan Of Treatment No Information Progress Notes * CORI SCHULZLUISOB:1960 (63 yo F)Acc No.[id number]:08/02/2023 Patient:?BALA SCHULZ :1960???Age:63 Y???Sex:Female Address:[address] [place] [address] [place] [address] * true * Date:? Generated for Diane felix/Nohemi/eTransmitting on:?09/18/2024 04:39 PM EDT
--- OUTSIDE RECORDS SUMMARY | 2024-09-18 16:40 | XMS_ITS | Clinical Summary ---
Author Organization [facility] Address [address] [place] [address] Care Team Providers Care [employer] Mainspring Former Name Role Phone Jovanni Ortiz MD Primary Care Provider [phone] Allergies No known active allergies Medications Medication [...] age to complete this topic Care Teams [employer] Former Relationship Specialty Start Date End Date Jovanni Ortiz MD [address] [facility] [place] [address] PCP - General Internal Medicine 03/01/17
--- OUTSIDE RECORDS SUMMARY | 2024-09-18 16:40 | XMS_ITS ---
Author Organization [facility] Address [address] [place] [address] Care Team Providers Care Security And Compliance Analyst Name Role Phone Ilene Arvizu Primary Care Provider Jeanne Cole [phone] REASON FOR VISIT r/s 09/15 Encounters Encounter Location Date Provider Diagnosis [address] [address] 09/11/2024 Jeanne Gu Plan Of Treatment Next Appt Details Provider Name:Jeanne gonzales, 11/13/2024 12:30:00 PM, [address] [place] [address], [phone], Progress Notes * Alejandra SCHULZ RDOB: (64 yo F)Acc No.[id number]:09/11/2024 Patient:?Alejandra SCHULZ :1960???Age:64 Y???Sex:Female Address:[address] [place] [address], [place], [address] * true * Date:? Generated for Printi isidro/Nohemi/eTransmitting on:?09/18/2024 04:39 PM EDT
--- OUTSIDE RECORDS SUMMARY | 2024-09-18 16:40 | XMS_ITS | Patient Health Record ---
Author Organization [facility] Address [address] [place] [address] Care Team Providers Care Public Health Analyst Name Role Phone Jovanni Ortiz MD Primary Care Provider Lg Mixon Unavailable [phone] Allergies Allergen (clinical drug ingredient) Drug/Non Drug Allergy documented on EMR Reaction Allergy Type Onset Date Status metformin Metformin Unknown Drug Allergy Active liraglutide Victoza Unknown Drug Allergy Activ e Reason For Referral No Information Medications Medication [...] Low-Dose Aspirin Act marcos Atorvastatin Calcium Active Immunizations Vaccine Route Administration Date Status Comme nts Influenza Unknown 03/01/2021 Administered Problems Problem Type SNOMED Code ICD Code Onset Dates Problem Status W/U Status Risk Notes Problem Colon cancer screening (926633767) Colon cancer screening (Z12.11) Active confirmed Problem History of adenomatous polyp of colon (500310055) History of adenomatous polyp of colon (Z86.010) Active confirmed Problem 950638756 Change in bowel habit (R19.4) Active confirmed Problem Preprocedural examination (756061002471853) Preprocedural examination (Z01.818) Active confirmed Problem 58681533 Constipation, unspecified constipation type (K59.00) Active confirmed Problem Diverticulosis of colon (088412505) Diverticulosis of colon (K57.30) Active confirmed Plan Of Treatment Pending Test Test Name Order Date T4 (THYROXINE) 08/02/2016 CBC w DIFF 08/02/2016 TSH RECEPTOR AB 08/02/2016 Future Test Test Name Order Date COLONOSCOPY 08/02/2016 COLONOSCOPY 03/06/2022 Insurance Providers Payer Name Payer Address Payer Phone Subscriber Number Group Number Insured Name Patient Relationship to Insured Coverage Start Date Coverage End Date [facility] [address] [facility] [place], [place] [phone] [id number] BALA SCHULZ Self - patient is the insured Medical (General) History Medical History History ICD Code Screening colonoscopy 010--neg for polyps,mild diverticulosis, internal hemorrhoids History of right sided breast cancer irina ated with mastectomy in 2006 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
--- OUTSIDE RECORDS SUMMARY | 2024-09-18 16:40 | XMS_ITS | Clinical Summary ---
Author Organization [facility], Address [address] [place] [address] Phone Care Team Providers Care Corrections Sergeant Name Role Phone Jovanni Ortiz MD Primary Care Provider [phone] Allergies Active Allergy Reactions Criticality Noted Date [...] of breast cancer, underwent reconstruction with tissue gunstock spray unit feeder and permanent implant on right side Tubular [...] patient's age to complete this topic Insurance [facility] Care Teams Corrections Sergeant Relationship Specialty Start Date End Date Jovanni Ortiz MD [facility] INTER[facility] MED [address] [place] [address] PCP - General Internal Medicine 07/05/23
--- OUTSIDE RECORDS SUMMARY | 2024-09-18 16:40 | XMS_ITS ---
Author Organization [facility] Address [address] [place] [address] Care Team Providers Care Electrician Substation Supervisor Name Role Phone Jovanni Ortiz MD Primary Care Provider Lg Mixon [phone] Encounters Encounter Location Date Provider Diagnosis [facility] [address] [place] [address] 07/16/2023 Lg Howard Plan Of Treatment No Information Progress Notes * CORI SCHULZLUISOB:1960 (63 yo F)Acc No.[id number]:07/16/2023 Patient:?BALA SCHULZ :1960???Age:63 Y???Sex:Female Address:[address] [facility], [place] [address] * true * Date:? Generated for Diane felix/Nohemi/eTransmitting on:?09/18/2024 04:39 PM EDT
== END 2024-09-18 14:51 | disposition home or self-care (01) ==
LOC: HO.HKA 14:22
PROVIDERS: PCP Family Medicine; Visit Provider Internal Medicine Nephrology
DX: N17.9 Acute kidney failure, unspecified (principal); E11.22 Type 2 diabetes mellitus with diabetic chronic kidney disease; N18.30 Chronic kidney disease, stage 3 unspecified; I10 Essential (primary) hypertension; E87.5 Hyperkalemia
CPT/HCPCS: 99214

== ENCOUNTER → 2024-09-18 14:21 | Outpatient (BNVA) | payer OTHER, SELFPAY | PROVIDERS: PCP Family Medicine; Visit Provider Internal Medicine Nephrology ==

== ENCOUNTER 2024-10-29 13:55 | Outpatient (REF) | payer OTHER, SELFPAY ==
[2024-10-29 14:45] LABS: Creatinine Urine 63.06 mg/dL; Protein/Creatinine Ratio, Ur 0.21 (<0.2); Total Protein Urine Random 13 mg/dL (<12)
[2024-10-29 15:10] LABS: Anion Gap 14 (12-20); Blood Urea Nitrogen 11 mg/dL (9-16); Calcium 9.2 mg/dL (8.4-10.2); Carbon Dioxide 24 mmol/L (22-29); Chloride 107 mmol/L (96-108); Estimated Glomerular Filt Rate 46; Potassium 4.8 mmol/L (3.3-5.1); Sodium 140 mmol/L (135-145)
--- OUTSIDE RECORDS SUMMARY | 2024-10-29 16:10 | XMS_ITS ---
Author Organization [facility] Address [address] [place] [address] Care Team Providers Care Pattern Chain Maker Supervisor Name Role Phone Ilene Arvizu Primary Care Provider Jeanne Cole [phone] Encounters Encounter Location Date Provider Diagnosis [address] [address] 09/15/2024 Jeanne Gu Plan Of Treatment Next Appt Details Provider Name:Jeanne gonzales, 11/13/2024 12:30:00 PM, [address] [place] [address], [phone], Progress Notes * Alejandra SCHULZ RDOB: (64 yo F)Acc No.[id number]:09/15/2024 Progress Note Patient:?Kandi SCHULZgordon Scott Provider:?Jeanne Gu DPM :1960???Age:64 Y???Sex:Female D ate:09/15/2024 Address:[address] [place] [address] Pcp:Ilene Arvizu Subjective: * Chief Complaints: * ??? * Medical History:? Objective: * Vitals:? Assessment: Plan: * Treatment: * Images: * The named appointment provid er may or may not be the originator of this progress note, and it is not deemed complete until electronically signed by the appointment provider. Sign off status: Pending * Provider:?Jeanne Gu DPM Date:? Generated for Diane felix/Nohemi/Yosi on:?10/29/2024 04:09 PM EDT
--- OUTSIDE RECORDS SUMMARY | 2024-10-29 16:10 | XMS_ITS | Clinical Summary ---
Author Organization [facility] Address [address] [place] [address] Care Team Providers Care Business Continuity Planner Name Role Phone Jovanni Ortiz MD Primary Care Provider [phone] Allergies No known active allergies Medications Medication [...] age to complete this topic Care Teams Business Continuity Planner Relationship Specialty Start Date End Date Jovanni Ortiz MD [address] [facility] [employer] [place] [address] PCP - General Internal Medicine 03/01/17
--- OUTSIDE RECORDS SUMMARY | 2024-10-29 16:10 | XMS_ITS | Clinical Summary ---
Author Organization [facility], Address [address] [place] [address] Phone Care Team Providers Care Associate Professor Of Physics Name Role Phone Jovanni Ortiz MD Primary Care Provider Allergies Active Allergy Reactions Criticality Noted Date [...] of breast cancer, underwent reconstruction with tissue graining press operator and permanent implant on right side Tubular [...] of right female breast 03/18/2017 09/30/2020 Immunizations Immunization Administration Dates Next Due Influenza (IM) Preservative [...] Comments Breast Cancer Screening 1960 Pneumococcal Vaccine: 50+ Years (1 of 2 - PCV) 1977 Colorectal Cancer Screening: Annual FOBT 2007 Colorectal Cancer Screening: Colonoscopy 2007 Colorectal Cancer Screening: Sigmoidoscopy 2007 Diabetes: Hemoglobin A1C 07/30/2020 Diabetes: Ophthalmology Exam 07/30/2020 Diabetes: Pedal Pulse Checked 07/30/2020 Diabetes: Sensory Foot Exam 07/30/2020 Diabetes: Visual Foot Exam 07/30/2020 Influenza Vaccine (Season Ended) 2025 05/11/2022, 04/14/2021, 04/01/2020, Additional history exists Hepatitis B Vaccine Aged Out No longe r eligible based on patient's age to complete this topic Insurance [facility] Care Teams Associate Professor Of Physics Relationship Specialty Start Date End Date Jovanni Ortiz MD [facility] INTER[facility] MED [address] [place] [address] PCP - General Internal Medicine 07/05/23
--- OUTSIDE RECORDS SUMMARY | 2024-10-29 16:10 | XMS_ITS ---
Author Organization [facility] Address [address] [place] [address] Care Team Providers Care Quality Assurance Qa Lab Analyst Name Role Phone Ilene Arvizu Primary Care Provider Jeanne Cole [phone] REASON FOR VISIT r/s 09/15 Encounters Encounter Location Date Provider Diagnosis [address] [address] 09/11/2024 Jeanne Gu Plan Of Treatment Next Appt Details Provider Name:Jeanne gonzales, 11/13/2024 12:30:00 PM, [address] [place] [address], [phone], Progress Notes * Alejandra SCHULZ RDOB: (64 yo F)Acc No.[id number]:09/11/2024 Patient:?Alejandra SCHULZ :1960???Age:64 Y???Sex:Female Address:[address] [place] [address], [place], [address] * true * Date:? Generated for Printi isidro/Nohemi/eTransmitting on:?10/29/2024 04:10 PM EDT
--- OUTSIDE RECORDS SUMMARY | 2024-10-29 16:10 | XMS_ITS | Patient Health Record ---
Author Organization [facility] Address [address] [facility] [place] [address] Care Team Providers Care Hydro Generation Manager Name Role Phone Ilene Arvizu Primary Care Provider Jeanne Cole Unavailable [phone] Allergies No Known Allergies Results Component Value [...] Problem Acquired hammer toe of right foot (4041090562219022 ) Other hammer toe(s) (acquired), right foot (M20.41) Active confirmed Problem Acquired hammer toe of left foot (8568006070417115 ) Other hammer toe(s) (acquired), left foot (M20.42) Active confirmed Problem Polyneuropathy due to diabetes mellitus type I (789907813) Type 1 diabetes mellitus with diabetic polyneuropathy (E10.42) Active confirmed Problem Polyneuropathy due to type 2 diabetes mellitus (839805695) Type 2 diabetes mellitus with diabetic polyneuropathy (E11.42) Active confirmed Problem 498777484 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 Vital Signs Blood pressure diastolic 85 mm Hg 07/07/2024 Height 5 ft3in in 07/07/2024 Blood pressure systolic 134 mm Hg 07/07/2024 Weight 220 lbs 07/07/2024 BMI 38.97 kg/m2 07/07/2024 Encounters Encounter Location Date Provider Diagnosis [address] [address] 07/07/2024 Jeanne Gu Type 2 diabetes asuncion itus with diabetic polyneuropathy E11.42 ; Other hammer toe(s) (acquired), right foot M20.41 ; Tinea unguium B35.1 ; Other hammer toe(s) (acquired), left foot M20.42 ; Drug-induced polyneuropathy G62.0 and Adverse effect of antineoplastic and immunosuppressive drugs, initial encounter T45.1X5A [address] [address] 03/31/20[facility] [address] 09/11/2024 Jenane Gu Assessments Encounter Date Diagnosis (ICD Code) [...] Provider Name:Jeanne gonzales, 11/13/2024 12:30:00 PM, [address] [place], [address], Insurance Providers Payer Name Payer Address Payer Phone Subscriber Number Group Number Insured Name Patient Relationship to Insured Coverage Start Date Coverage End Date [address] [address] [phone] [id number] Alejandra Thompson Self - patient is the insured 4 Medical (General) History Medical History History ICD Code Cancer Diabetic Fibromyalgia High Blood Pressure Numbness Measles Mumps Chicken pox Infusions Surgical History Surgery Date(Month/Year) hysterectomy
--- OUTSIDE RECORDS SUMMARY | 2024-10-29 16:10 | XMS_ITS ---
Author Organization [facility] Address [address] [facility] [place] [address] Care Team Providers Care Cellophane Casting Machine Repairer Name Role Phone Ilene Arvizu Primary Care Provider Jeanne Cole Unavailable [phone] Allergies No Known Allergies REASON FOR VISIT [...] Polyneuropathy due to type 2 diabetes mellitus (962406716) Type 2 diabetes mellitus with diabetic polyneuropathy (E11.42) Active confirmed Problem Polyneuropathy due to diabetes mellitus type I (780821202) Type 1 diabetes mellitus with diabetic polyneuropathy (E10.42) Active confirmed Problem Acquired hammer toe of right foot (2901911813124276 ) Other hammer toe(s) (acquired), right foot (M20.41) Active confirmed Problem Acquired hammer toe of left foot (6863900198855082 ) Other hammer toe(s) (acquired), left foot (M20.42) Active confirmed Problem 059656723 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 Vital Signs Height 5 ft3in in 07/07/2024 Weight 220 lbs 07/07/2024 BMI 38.97 kg/m2 07/07/2024 Blood pressure systolic 134 mm Hg 07/07/19 25 Blood pressure diastolic 85 mm Hg 025 Encounters Encounter Location Date Provider Diagnosis [facility] [address] [address] 07/07/2024 Jeanne Brittanie Type 2 diabetes asuncion [...] Reason: Provider Name:Jeanne gonzales, 11/13/2024 12:30:00 PM, [address] [place] [address], [phone], Procedure Notes * Category Sub-Category Detail [...] use of a nail nipper and/or dremel-type cnc grinder, to a more viable healthy nail [...] to maintain effectiveness in symptomatic relief - 87527 Keratoma Treatment Parring or Cutting o f [...] power dremel instrumentation by the physician of [facility] - [address] Progress Notes * Alejandra SCHULZ RDOB: 8 (64 yo F)Acc No.[id number]:07/07/2024 Progress Notes Patient:?Alejandra SCHULZ Provider:?Jeanne Gu DPM :1960???Age:64 Y???Sex:Female D ate:07/07/2024 Address:[address] [place] [address], [facility] Pcp:Ilene Arvizu Subjective: * Chief Complaints: * [...] use of a nail nipper and/or dremel-type cnc grinder, to a more viable healthy nail [...] to maintain effectiveness in symptomatic relief - 87964.?Keratoma Treatment:?Parring or Cutting of Benign Hyperkeratotic Lesion(s)?(-56) [...] instrumentation by the physician of record - 91213.? * Procedure Codes:?28850 DEBRI DE NAIL, 6 OR MORE, Modifiers: XS 26060 TRIM SKIN LESIONS, 2 TO 4, Modifiers: [...] Gu DPM Date:?12/2024 Generated for Diane felix/Nohemi/Yosi on:?10/29/2024 04:09 PM EDT History and Physical Notes * [...] plantar, TA, T5, Plantar Heel(s), B/L Orthopedic FOOTWEAR EVALUATION: worn, non-s upportive, shoe gear properties exacerbate patient's foot/toe deformity [...]
== END 2024-10-29 13:56 | disposition home or self-care (01) ==
LOC: HO.LAB 13:55
PROVIDERS: PCP Family Medicine; Visit Provider Internal Medicine Nephrology
DX: I10 Essential (primary) hypertension (principal); E11.22 Type 2 diabetes mellitus with diabetic chronic kidney disease; N18.30 Chronic kidney disease, stage 3 unspecified
CPT/HCPCS: 36415; 80051; 82310; 82565; 82570; 84156; 84520

== ENCOUNTER 2024-10-30 11:42 | Outpatient (AMB) | payer OTHER, SELFPAY ==
--- NOTE | 2024-10-30 11:52 | HO.NEPHOV_ITS ---
Vital Signs 10/30/24 11:53 Height 5 ft 4 in BP 120/62 Blood Pressure Location Lt brachial Position Sitting Pulse 95 Pulse Source Pulse Oximeter Pulse Oximetry (%) 97 Oxygen Delivery Method Room Air Intake Visit Reasons: FU- Unable to reach Respiratory Manager Required: No Accompanied by: Spouse Allergies liraglutide [From Victoza] Allergy (Intermediate, Verified 10/30/24 11:56) Gastrointestinal Upset metformin Allergy (Intermediate, Verified 10/30/24 11:56) Gastrointestinal Upset transparent dressing [Tegaderm] Allergy (Verified 10/30/24 11:56) Blister Do you need a note to return to daycare/school/sports/work: No HPI Comments Details: Alejandra was seen in the office in follow-up of her chronic kidney disease, hypertension proteinuria. She has diabetic nephropathy. She has HGSC of fallopian tube. She was treated with C1D17 carbo/gemzar and had completed 8 cycles of Avastin. She recently had hospitalization for thrombocytpenia and epistaxis. She got 3 Units of platelets and 2 PRBC. She is off ACEI for now. Her blood sugar is fair. She follows closely with Dr. Mcghee .She had been prescribed Jardiance in the past but could not afford the cost. She has not had any hypoglycemias. Her blood pressure is well controlled. She keeps up with good hydration and avoid nonsteroidal anti-inflammatory medications . she denies any chest pain, shortness of breath, proximal nocturnal dyspnea, orthopnea or pedal edema. She is compliant with her medications. She is due chemo next week. She has neuropathy post chemo [facility] Medical History DVT (deep venous thrombosis) Pulmonary embolism Hyperlipemia HTN (hypertension) IDDM (insulin dependent diabetes mellitus) Breast cancer, right Surgical History History of reduction surgery of left breast H/O mastectomy Social History Alcohol intake: never Patient Tobacco Use Status: Never used Tobacco Review of Systems Const All systems reviewed & are unremarkable except as noted in HPI and below Physical Exam Vital Signs: Last Vital Signs Pulse 95 10/30/24 11:53 BP 120/62 10/30/24 11:53 Pulse Ox 97 10/30/24 11:53 Oxygen Delivery Method Room Air 10/30/24 11:53 Const General: comfortable and no acute distress Orientation/consciousness: patient oriented x3 HEENT Head: Yes normocephalic Mouth: Normal oral and palatal mucosa present Eyes EOM: EOMs intact bilaterally Neck Neck: Yes supple Resp Auscultation: clear to auscultation bilaterally Cardio Jugular venous distension: no JVD Rate: regular rate GI Palpation (GI): Soft to palpation Auscultation: normal bowel sounds General: Yes no CVA tenderness Back/Spine/Pelvis Back: no CVA tenderness Skin General skin exam: no rashes or lesions noted Neuro General: patient oriented x3 and moves all extremities Extrem General: Yes no pedal edema Results Reviewed Nephrology Results: Sodium 140 mmol/L (135-145) 10/29/24 Potassium 4.8 mmol/L (3.3-5.1) 10/29/24 Chloride 107 mmol/L (96-108) 10/29/24 Carbon Dioxide 24 mmol/L (22-29) 10/29/24 BUN 11 mg/dL (9-16) 10/29/24 Creatinine 1.17 mg/dL (0.5-1.4) 10/29/24 Calcium 9.2 mg/dL (8.4-10.2) 10/29/24 Urine Creatinine 63.06 mg/dL 10/29/24 Protein/Creatinin Ratio 0.21 (<0.2) H 10/29/24 Assessment & Plan Assessment & Plan (1) CKD stage 3 due to type 2 diabetes mellitus: Code(s): E11.22 - Type 2 diabetes mellitus with diabetic chronic kidney disease; N18.30 - Chronic kidney disease, stage 3 unspecified Category: Medical (2) HTN (hypertension): Code(s): I10 - Essential (primary) hypertension Category: Medical Qualifiers: Hypertension type: primary hypertension Qualified Code(s): I10 - Essential (primary) hypertension Plan Alejandra has history chronic kidney disease from diabetes mellitus. She has a diabetic nephropathy. Her proteinuria had been acceptable. She recently had JAVI and hyperkalemia which is resolved now. She was prescribed Jardiance in the past but could not continue due to its cost. She should avoid nonsteroidal anti- inflammatory medications. She should maintain good hydration. I will ordered for all blood work in F/U. C/W current medications. All questions were answered. Orders: Orders Creatinine 3 Months E11.22 - Type 2 diabetes mellitus with diabetic chronic kidney disease, I10 - Essential (primary) hypertension, N18.30 - Chronic kidney disease, stage 3 unspecified Blood Urea Nitrogen 3 Months E11.22 - Type 2 diabetes mellitus with diabetic chronic kidney disease, I10 - Essential (primary) hypertension, N18.30 - Chronic kidney disease, stage 3 unspecified Electrolytes 3 Months E11.22 - Type 2 diabetes mellitus with diabetic chronic kidney disease, I10 - Essential (primary) hypertension, N18.30 - Chronic kidney disease, stage 3 unspecified Coding Level of Care Code Est Pt Level 4 (18535) Diagnoses CKD stage 3 due to type 2 diabetes mellitus E11.22; N18.30 Primary hypertension I10 Hypertension type: primary hypertension
[2024-10-30 11:53] VITALS: BP 120/62; PULSE 95; O2SAT 97
--- OUTSIDE RECORDS SUMMARY | 2024-10-30 12:38 | XMS_ITS | Continuity of Care Document ---
Author Organization [facility] ter Address [address] [place] [address]- Care Team Providers Care Latin Teacher Name Role Phone Ilene Arvizu MD Primary Care Physician [phone] Encounter [facility] Date(s): 09/15/24 - 10/29/[address] [address] Attending Physician: Mireille Garcia MD Admitting Physician: Mireille Garcia MD Referring Physician: Mireille Garcia MD Encounter Type: Pre-Outpt Allergies, Adverse Reactions, Alerts Substance Criticality Severity Reaction Reaction Severity Status Bee Stings Unable to assess criticality Unknown Active Tape 1 surgical - blisters @ site Active Victoza N,V,D tried 3 times Active glipizide-metformi n gi upset Active 1TEGADERM Immunizations Given and Recorded Vaccine Date Status Refusal Reason SARS-CoV-2(COVID-19)mRNA-LNP vac([id number]) 06/10/23 Recorded influenza virus vaccine, inactivated 06/03/23 Hari rded influenza virus vaccine, inactivated 05/11/22 Hari rded influenza virus vaccine, inactivated 04/14/21 Hari rded influenza virus vaccine, inactivated 04/01/20 Hari rded influenza virus vaccine, inactivated 05/12/19 Hari rded influenza virus vaccine, inactivated 05/07/18 Hari rded pneumococcal 20-valent conjugate vaccine 07/24/22 Recorded [id number]-InW-[id number]-[id number] bivalent booster vax 05/22/22 Recorded SARS-CoV-2 (COVID-19) mRNA-1273 vaccine 06/14/21 R ecorded SARS-CoV-2 (COVID-19) mRNA BNT-162b2 vac 11/03/20 Recorded SARS-CoV-2 (COVID-19) mRNA BNT-162b2 [facility] 10/13/20 Recorded tetanus/diphtheria/pertussis, acel(Tdap) 02/03/20 Recorded Medications amLODIPine 10 mg oral tablet 10 mg, 1, tablet, By Mouth, Daily, # 90 tablet, Refills 1, Tot. Refills 1, Maintenance, 08/26/24 3:32:00 PM EST, Route to Pharmacy Electronically, [facility]/pharmacy #[id number], Partial fill upon patient requestif the prescription [...] use to test BG 2x daily, DxE10.9 [facility]# [id number], 09/22/20 9:58:00 AM EDT, Compound, 163, cm, [...] BEDTIME, # 150 capsule, Refills 2, Maintenance, 10/06/24 7:46:00 AM EDT, Instructions Replace Required Details, Route toPharmacy Electronically, [facility], 160, cm, 10/02/24 7:38:00 EDT, Height, 105, kg, 10/01/24 9:47:00 EDT, Dry Weight Start Date: 10/06/24 Status: Ordered Quantity: 150.0 Unit: capsule Repeat number: 1 HumaLOG KwikPen 200 units/mL (Concentrated) subcutaneous solution See Instructions, INJECT SUBCUTANEOUSLY 3 TIMES DAILY WITH MEALS, MAX DAILY DOSE 90 UNITS, # 42 Unknown, 2 Refills, Maintenance, 07/13/24 1:39:00 PM EST, [facility], 160.8, cm, 07/08/24 14:12:00 EST, Height, 97.1, kg, 05/27/24 8:23:00 EST, Dry Weight Start Date: 07/13/24 Status: Ordered Quantity: 42.0 Unit: Unknown Repeat number: 1 Lantus Solostar Pen 100 units/mL subcutaneous solution INJECT 50 UNITS UNDER THE SKIN NIGHTLY AT BEDTIME. Start Date: 10/21/24 Status: Ordered Repeat number: 1 lidocaine-prilocaine 2.5%-2.5% topical cream See Instructions, apply to [facility] 30-60min prior to each chemotherapy session, # 30 Gm, 2 Refills, Maintenance, 07/30/23 4:21:00 PM EST, [facility]/pharmacy #[id number], Partial fill upon patient request if the prescription is for a schedule II opioid drug., apply to [facility] 30-60min prior to eachchemotherapy session, 159.2, cm, [...] 07/04/23 Status: Ordered Repeat number: 1 Pen Roscoe, 32 G x 4 mm BD Ultra [...] 2 Refills, Maintenance, :22:00 AM EST, Tablet, [facility]/pharmacy #0693, Partial fill upon patient request if the prescription is for a schedule II opioid drug., 160.6, cm, 08/20/24 9:02:00 EST, Height, 101.6, kg, 07/29/24 11:26:00 EST, Dry Weight Start Date: 08/20/24 Status: Ordered Quantity: 30.0 Unit: tablet Repeat number: 3 Senna 8.6 mg oral tablet 2, tablet, By Mouth, Daily at bedtime, PRN, # 60 tablet, Refills 2, Maintenance, NEEDED FOR CONSTIPATION, 09/24/24 8:21:00 AM EDT, Route to Pharmacy Electronically, [facility] 80885, 162, cm, 09/17/24 12:17:00 EDT, Height, 100, kg, 09/05/24 19:08:00 EST, Dry Weight Start Date: 09/24/24 Status: Ordered Quantity: 60.0 Unit: tablet Repeat number: 1 Vitamin B-12 100 mcg oral tablet 1, tablet, By Mouth, Daily, # 90 tablet, Refills 1, Maintenance, 05/17/24 10:28:00 PM EST, Route toPharmacy Electronically, [facility], 160.8, cm, 05/06/24 10:37:00 EST, Height, 86.5, [...] Active Renovascular hypertension Confirmed Active Severe obesity Confirmed Active Chemotherapy-induced thrombocytopenia Confirmed Active Wound dehiscence Confirmed Active 1Pt with hx of breast cancer, underwent reconstruction with tissue energy projects lead and permanent implant onright side Social History Social History Type Response Smoking Status Never smoker entered on: 09/06/16 Sex Sex Representation Female (finding) Patient Care team information Care Team Personnel Name: Ilene Arvizu MD Position: [facility] Outreach Member Role: PCP Address: [address] [place] [address] [address] [facility] Primary Care [address] Telecom: Name: Janice Zepeda RN Position: [facility] RN Member Role: Primary Care Nurse Name: Lorraine Blanc RN Position: [facility] RN Member Role: Primary Care Nurse Name: Abel Rob RN Position: [facility] RN Member Role: Primary Care Nurse Name: Pino Moulton RN Position: [facility] RN Member Role: Primary Care Nurse Name: Leigh Ann Morris RN Position: [facility] RN Member Role: Primary Care Nurse Name: Rosario Andino RN Position: [facility] Onco RN Member Role: Primary Care Nurse Name: Abeba Franco RN Position: [facility] Onco RN Member Role: Primary Care Nurse Name: Baylee Mitchell RN Position: [facility] Onco RN Member Role: Primary Care Nurse Name: Ivan Lorenz MD Position: [facility] Physician - Oncology Member Role: Lifetime Consulting Physician Address: [address] [facility] [place] [address]- Telecom: Name: Eva Sánchez RN Position: [facility] RN Member Role: Primary Care Nurse Name: Jay Vidales RN Position: [facility] Onco RN Member Role: Primary Care Nurse Name: Lyndsay Renee RN Position: [facility] Onco RN Member Role: Primary Care Nurse Name: Milly Barajas NP Position: [facility] Associate Professional Member Role: Primary Care Nurse Address: [address] [place] [address] [address] [facility] [place] [address]- Telecom: Name: Beatriz Love RN Position: [facility] Onco RN Member Role: Primary Care Nurse Name: Penny Leon RN Position: [facility] RN Member Role: Primary Care Nurse Name: Xi Johnson RN Position: [facility] RN Member Role: Primary Care Nurse Care Team Related Persons Name: SCHULZSHEMAR Insurance Providers Guarantor name: BALA SCHULZ Health Plan Information #: 1 Payer: [employer] Member Number: [id number] Policy Number: NA Group Number: [facility] Health Plan Information #: 2 Payer: [employer] Member Number: [id number] Policy Number: NA Group Number: NA Health Plan Information #: 3 Payer: [facility] PPO OR CARELNK Member Number: NA Policy Number: NA Group Number: NA
--- OUTSIDE RECORDS SUMMARY | 2024-10-30 12:38 | XMS_ITS ---
Author Organization [facility] Address [address] [place] [address] Care Team Providers Care Pediatrician/Medical Doctor Name Role Phone Jovanni Ortiz MD Primary Care Provider UnavailLg Taylor [phone] REASON FOR VISIT up date Encounters Encounter Location Date Provider Diagnosis [facility] [address] [place] [address] 08/02/2023 Lg Howard Plan Of Treatment No Information Progress Notes * CORI SCHULZLUISOB:1960 (63 yo F)Acc No.[id number]:08/02/2023 Patient:?BALA SCHULZ :1960???Age:63 Y???Sex:Female Address:[address] [facility], [place] [address] * true * Date:? Generated for Diane felix/Nohemi/eTransmitting on:?10/30/2024 12:37 PM EDT
--- OUTSIDE RECORDS SUMMARY | 2024-10-30 12:38 | XMS_ITS | Patient Health Record ---
Author Organization [facility] Address [address] [place] [address] Care Team Providers Care Pharmaceutical Botanist Name Role Phone Jovanni Ortiz MD Primary Care Provider Lg Mixon Unavailable [phone] Allergies Allergen (clinical drug ingredient) Drug/Non Drug [...] Status Risk Notes Problem Colon cancer screening (Z12.11) Active confirmed Problem History of adenomatous polyp of colon (073735665) History of adenomatous polyp of colon (Z86.010) Active confirmed Problem 204825025 Change in bowel habit (R19.4) Active confirmed Problem Preprocedural examination (501841692055863) Preprocedural examination (Z01.818) Active confirmed Problem 56137796 Constipation, unspecified constipation type (K59.00) Active confirmed Problem Diverticulosis of colon (034781296) Diverticulosis of colon (K57.30) Active confirmed Plan Of Treatment Pending Test Test Name Order Date T4 (THYROXINE) 08/02/2016 CBC w DIFF 08/02/2016 TSH RECEPTOR AB 08/02/2016 Future Test Test Name Order Date COLONOSCOPY 08/02/2016 COLONOSCOPY 03/06/2022 Insurance Providers Payer Name Payer Address Payer Phone Subscriber Number Group Number Insured Name Patient Relationship to Insured Coverage Start Date Coverage End Date [facility] [address] [facility] [place] [phone] [id number] BALA SCHULZ Self - patient is the insured Medical (General) History Medical History History ICD Code Screening colonoscopy 010--neg for polyps,mild diverticulosis, internal hemorrhoids History of right sided breast cancer irina ated with mastectomy in 2006 IDDM-seeing an Shutdown Planner Hypertension Hyperlipidemia Denies MT,CVA,Lung disease,renal disease Colonoscopy in 10/2016 with a [...]
--- OUTSIDE RECORDS SUMMARY | 2024-10-30 12:38 | XMS_ITS ---
Author Organization [facility] Address [address] [place] [address] Care Team Providers Care Cutting Machine Fixer Name Role Phone Jovanni Ortiz MD Primary Care Provider Lg Mixon [phone] SCAN Encounters Encounter Location Date Provider Diagnosis [facility] [address] [place] [address] 05/10/2023 Lg Howard Plan Of Treatment No Information Progress Notes * CORI SCHULZLUISOB:1960 (63 yo F)Acc No.[id number]:05/10/2023 Patient:?BALA SCHULZ :1960???Age:63 Y???Sex:Female Address:[address] [place] [address] [place] [address] * true * Date:? Generated for Diane felix/Nohemi/eTransmitting on:?10/30/2024 12:38 PM EDT
--- OUTSIDE RECORDS SUMMARY | 2024-10-30 12:38 | XMS_ITS ---
Author Organization [facility] Address [address] [facility] [address] Care Team Providers Care Skeiner Name Role Phone Ilene Arvizu Primary Care Provider Jeanne Cole Unavailable [phone] Allergies No Known Allergies REASON FOR VISIT [...] Polyneuropathy due to type 2 diabetes mellitus (022294852) Type 2 diabetes mellitus with diabetic polyneuropathy (E11.42) Active confirmed Problem Polyneuropathy due to diabetes mellitus type I (723013935) Type 1 diabetes mellitus with diabetic polyneuropathy (E10.42) Active confirmed Problem Acquired hammer toe of right foot (5079390526439108 ) Other hammer toe(s) (acquired), right foot (M20.41) Active confirmed Problem Acquired hammer toe of left foot (5927652903507636 ) Other hammer toe(s) (acquired), left foot (M20.42) Active confirmed Problem 882551921 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 Vital Signs Height 5 ft3in in 07/07/2024 Weight 220 lbs 07/07/2024 BMI 38.97 kg/m2 07/07/2024 Blood pressure systolic 134 mm Hg 07/07/19 25 Blood pressure diastolic 85 mm Hg 025 Encounters Encounter Location Date Provider Diagnosis [facility] [address] [address] 07/07/2024 Jeanne Brittanie Type 2 diabetes asuncion [...] Reason: Provider Name:Jeanne gonzales, 11/13/2024 12:30:00 PM, [address] [place] [address], [phone], Procedure Notes * Category Sub-Category Detail [...] use of a nail nipper and/or dremel-type roll grinder, to a more viable healthy nail [...] to maintain effectiveness in symptomatic relief - 80030 Keratoma Treatment Parring or Cutting o f [...] power dremel instrumentation by the physician of [facility] - [address] Progress Notes * Alejandra SCHULZ RDOB: 8 (64 yo F)Acc No.[id number]:07/07/2024 Progress Notes Patient:?Alejandra SCHULZ Provider:?Jeanne Gu DPM :1960???Age:64 Y???Sex:Female D ate:07/07/2024 Address:[address] [place] [address], [facility] Pcp:Ilene Arvizu Subjective: * Chief Complaints: * [...] use of a nail nipper and/or dremel-type roll grinder, to a more viable healthy nail [...] to maintain effectiveness in symptomatic relief - 04991.?Keratoma Treatment:?Parring or Cutting of Benign Hyperkeratotic Lesion(s)?(-56) [...] instrumentation by the physician of record - 74331.? * Procedure Codes:?08003 DEBRI DE NAIL, 6 OR MORE, Modifiers: XS 72882 TRIM SKIN LESIONS, 2 TO 4, Modifiers: [...] Gu DPM Date:?12/2024 Generated for Diane felix/Nohemi/Yosi on:?10/30/2024 12:37 PM EDT History and Physical Notes * [...]
--- OUTSIDE RECORDS SUMMARY | 2024-10-30 12:38 | XMS_ITS | Clinical Summary ---
Author Organization [facility] Address [address] [place] [address] Care Team Providers Care Component Engineer Name Role Phone Jovanni Ortiz MD Primary Care Provider [phone] Allergies No known active allergies Medications Medication [...] age to complete this topic Care Teams Component Engineer Relationship Specialty Start Date End Date Jovanni Ortiz MD [address] [facility] [place] [address] PCP - General Internal Medicine 03/01/17
--- OUTSIDE RECORDS SUMMARY | 2024-10-30 12:38 | XMS_ITS ---
Author Organization [facility] Address [address] [place] [address] Care Team Providers Care Disulfurizer Tender Name Role Phone Ilene Arvizu Primary Care Provider Jeanne Cole [phone] Encounters Encounter Location Date Provider Diagnosis [address] [address] 09/15/2024 Jeanne Gu Plan Of Treatment Next Appt Details Provider Name:Jeanne gonzales, 11/13/2024 12:30:00 PM, [address] [place] [address], [phone], Progress Notes * Alejandra SCHULZ RDOB: (64 yo F)Acc No.[id number]:09/15/2024 Progress Note Patient:?Kandi SCHULZgordon Scott Provider:?Jeanne Gu DPM :1960???Age:64 Y???Sex:Female D ate:09/15/2024 Address:[address] [place] [address] Pcp:Ilene Arvizu Subjective: * Chief Complaints: * ??? * Medical History:? Objective: * Vitals:? Assessment: Plan: * Treatment: * Images: * The named appointment provid er may or may not be the originator of this progress note, and it is not deemed complete until electronically signed by the appointment provider. Sign off status: Pending * Provider:?Jeanne Gu DPM Date:? Generated for Diane felix/Nohemi/Yosi on:?10/30/2024 12:37 PM EDT
--- OUTSIDE RECORDS SUMMARY | 2024-10-30 12:38 | XMS_ITS ---
Author Organization [facility] Address [address] [place] [address] Care Team Providers Care Tobacco Hanger Name Role Phone Ilene Arvizu Primary Care Provider Jeanne Cole [phone] REASON FOR VISIT r/s 09/15 Encounters Encounter Location Date Provider Diagnosis [address] [address] 09/11/2024 Jeanne Gu Plan Of Treatment Next Appt Details Provider Name:Jeanne gonzales, 11/13/2024 12:30:00 PM, [address] [place] [address], [phone], Progress Notes * Alejandra SCHULZ RDOB: (64 yo F)Acc No.[id number]:09/11/2024 Patient:?Alejandra SCHULZ :1960???Age:64 Y???Sex:Female Address:[address] [place] [address], [place], [address] * true * Date:? Generated for Printi isidro/Nohemi/eTransmitting on:?10/30/2024 12:38 PM EDT
--- OUTSIDE RECORDS SUMMARY | 2024-10-30 12:38 | XMS_ITS ---
Author Organization [facility] Address [address] [place] [address] Care Team Providers Care Valve Setter Name Role Phone Jovanni Ortiz MD Primary Care Provider Lg Mixon [phone] Encounters Encounter Location Date Provider Diagnosis [facility] [address] [place] [phone] 07/16/2023 Lg Howard Plan Of Treatment No Information Progress Notes * CORI SCHULZLUISOB:1960 (63 yo F)Acc No.[id number]:07/16/2023 Patient:?BALA SCHULZ :1960???Age:63 Y???Sex:Female Address:[address] [facility], [place] [address] * true * Date:? Generated for Diane felix/Nohemi/eTransmitting on:?10/30/2024 12:38 PM EDT
--- OUTSIDE RECORDS SUMMARY | 2024-10-30 12:38 | XMS_ITS | Clinical Summary ---
Author Organization [facility], Address [address] [place] [address] Phone Care Team Providers Care Radio Time Buyer Name Role Phone Jovanni Ortiz MD Primary Care Provider [phone] Allergies Active Allergy Reactions Criticality Noted Date [...] of breast cancer, underwent reconstruction with tissue assistant banquet manager and permanent implant on right side Tubular [...] patient's age to complete this topic Insurance [facility] Care Teams Radio Time Buyer Relationship Specialty Start Date End Date Jovanni Ortiz MD [facility] [address] [place] [address] PCP - General Internal Medicine 07/05/23
--- OUTSIDE RECORDS SUMMARY | 2024-10-30 12:38 | XMS_ITS | Patient Health Record ---
Author Organization [facility] Address [address] [facility] [place] [address] Care Team Providers Care Flanger Name Role Phone Ilene Arvizu Primary Care Provider Jeanne Cole Unavailable [phone] Allergies No Known Allergies Results Component Value [...] Problem Acquired hammer toe of right foot (8373102982597021 ) Other hammer toe(s) (acquired), right foot (M20.41) Active confirmed Problem Acquired hammer toe of left foot (4613810287636556 ) Other hammer toe(s) (acquired), left foot (M20.42) Active confirmed Problem Polyneuropathy due to diabetes mellitus type I (977479901) Type 1 diabetes mellitus with diabetic polyneuropathy (E10.42) Active confirmed Problem Polyneuropathy due to type 2 diabetes mellitus (593867186) Type 2 diabetes mellitus with diabetic polyneuropathy (E11.42) Active confirmed Problem 041334215 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 Vital Signs Blood pressure diastolic 85 mm Hg 07/07/2024 Height 5 ft3in in 07/07/2024 Blood pressure systolic 134 mm Hg 07/07/2024 Weight 220 lbs 07/07/2024 BMI 38.97 kg/m2 07/07/2024 Encounters Encounter Location Date Provider Diagnosis [address] [address] 07/07/2024 Jeanne Gu Type 2 diabetes asuncion itus with diabetic polyneuropathy E11.42 ; Other hammer toe(s) (acquired), right foot M20.41 ; Tinea unguium B35.1 ; Other hammer toe(s) (acquired), left foot M20.42 ; Drug-induced polyneuropathy G62.0 and Adverse effect of antineoplastic and immunosuppressive drugs, initial encounter T45.1X5A [address] [address] 03/31/20[facility] [address] 09/11/2024 Jeanne Gu Assessments Encounter Date Diagnosis [...] Provider Name:Jeanne gonzales, 11/13/2024 12:30:00 PM, [address] [place], [address], Insurance Providers Payer Name Payer Address Payer Phone Subscriber Number Group Number Insured Name Patient Relationship to Insured Coverage Start Date Coverage End Date [address] [address] [id number] Alejandra Thompson Self - patient is the insured 4 Medical (General) History Medical History History ICD Code Cancer Diabetic Fibromyalgia High Blood Pressure Numbness Measles Mumps Chicken pox Infusions Surgical History Surgery Date(Month/Year) hysterectomy
== END 2024-10-30 12:13 | disposition home or self-care (01) ==
LOC: HO.HKA 11:43
PROVIDERS: PCP Family Medicine; Visit Provider Internal Medicine Nephrology
DX: E11.22 Type 2 diabetes mellitus with diabetic chronic kidney disease (principal); N18.30 Chronic kidney disease, stage 3 unspecified; I10 Essential (primary) hypertension
CPT/HCPCS: 99214

== ENCOUNTER 2025-02-26 13:04 | Outpatient (REF) | payer MEDICARE, SELFPAY ==
--- OUTSIDE RECORDS SUMMARY | 2025-02-22 15:10 | XMS_ITS | Encounter Summary ---
Author Organization [facility] Address [address] [place] [phone] Phone Care Team Providers Care Hand Quilter Name Role Phone Jamie Alvarado MD Unavailable Yousif Carney MD Unavailable Ilene Arvizu MD Primary Care Provider Mireille Garcia MD Unavailable Reason for Visit * Reason Comments Follow-up Encounter Details Date Type Department Care Team (Late st Contact Info) Description 02/22/2025 3:10 PM EDT Office Visit [facility] Endocrinology [address] [address] Aura Hobbs PA-C [address] [place] [address] [email or web address] Type 2 diabetes mellitus with peripheral neuropathy (Primary Dx) Social History Tobacco Use Types Packs/Day Years Used Date Smoking Tobacco: Never Smokeless Tobacco: Never Alcohol Use Standard Drinks/Week Comments Not Currently 0 (1 standard drink = 0.6 oz pur e alcohol) Child or Family Care Answer Date Record ed Do you have problems with on e of the following making it difficult for you to work, study, or receive health care? No 10/28/2023 Education Answer Date Recorded Are you interested in help w ith more adult education (for example, completing high school, GED, job training, learning the Belgian language, technical skills, or developing parenting skills)? No 10/28/2023 Are you concerned about learning? Not on file 10/28/2023 No 10/28/2023 Yes 10/28/2023 Food Answer Date Recorded Within the past 6 months we worried whether our food would run out before we got money to buy more. Never True 10/28/2023 Within the past 6 months the food we bought just didn't last and we didn't have enough money to get more. Never True Residential Stability Answer Date Recor ded What is your housing situation today? I have gilberto sing 10/28/2023 How many times have you move d in the past 12 months? I choose not to answer 10/28/2023 Paying for Meds Answer Date Recorded Do you have trouble paying for medicines? No 10/28/2023 Paying Utility Bills Answer Date Record ed Do you have trouble paying your heating or elect ricity bill? No 10/28/2023 Transportation Answer Date Recorded Has the lack of transportati on kept you from medical appointments or from getting medications? No 10/28/2023 Unemployment Answer Date Recorded Are you currently unemployed or working on a part-time or temporary basis, and looking for work? No 07/24/2022 Digital Access Answer Date Recorded No 10/28/2023 Yes 10/28/2023 Do you have reliable internet access at home? I choose not to answer 10/28/2023 Do you have a device (e.g., phone, tablet, computer) with a working camera? Yes 10/28/2023 Intimate Partner Violence Answer Date R ecorded Denied Basic Needs Not on file 07/26/2023 In the past 12 months have y ou been in a relationship with a person who hurts, threatens, or tries to control you? No 07/26/2023 Worried food would run out Not on file 07/26 In the past 12 months have y ou been in a relationship with a person who hurts, threatens, or tries to control you? No 07/26/2023 Comments No Sex and Gender Information Value Date Recorded Sex Assigned at Female 07/24/2022 12:55 PM EST Legal Sex Female 9:51 PM EDT Gender Identity Female 07/24/2022 12:55 PM EST Sexual Orientation Straight 07/24/2022 12 :55 PM EST documented as of this encounter Last Filed Vital Signs Vital Sign Reading Time Taken Comments Blood Pressure 120/70 02/22/2025 3:26 PM EDT Pulse 87 02/22/2025 3:26 PM EDT Temperature - - Respiratory Rate - - Oxygen Saturation 97% 02/22/2025 3:26 PM EDT Inhaled Oxygen Concentration - - Weight 109.3 kg (241 lb) 02/22/2025 3:26 PM EDT Height 159.4 cm (5' 2.76 ) 02/22/2025 3:26 PM ED T Body Mass Index 43.02 02/22/2025 3:26 PM EDT documented in this encounter Progress Notes * Aura Hobbs PA-C - 02/22/2025 3:10 PM EDT Subjective: Patient ID: Alejandra Thompson is a 65 y.o. female. In the interval since the last visit, she is currently on a pause from her chemotherapy. She had a CT scan last week and is awaiting the results to determine what her oncologist is going to do next. Hemoglobin A1C: Reviewed last A1C from 05/24 was 6.9%. Blood glucose monitoring: using the freestyle liliana 3+ sensor, average reading is 212, time in range is 28%, time high is 52%, time very high is20%. Hypoglycemia: none. Problems with medications: none. Recent weight changes: gained 3 pounds since 11/22. Diet : 2-3 meals a day, occasional snacks, choices are reasonable but can improve, portion control is good. Activity: limited, trying to go back to the gym has been twice. Optho: up to date,saw last week. Foot: no issues. Injection/pump site & timing: rotating on abdomen for insulin and arms for the sensors, changing the sensor every 15 days, taking right before to 30 minutes beforeeating, no lipohypertrophy or bruising Current Outpatient Medications Ordered in Epic: amLODIPine (NORVASC) 10 MG tablet, Take 10 mg by mouth daily. aspirin 81 MG EC tablet, Take 81 mg by mouth daily. atorvastatin (LIPITOR) 80 MG tablet, Take 1 tablet (80 mg total) by mouth every morning. cyanocobalamin, vitamin B-12, 100 MCG tablet, Take 1 tablet by mouth every morning. FREESTYLE LILIANA 3 PLUS SENSOR Vanessa, To monitor blood glucose, to change the sensor every 15 days freestyle liliana 3 reader, To monitor blood glucose FREESTYLE PRECISION KIMBERLY STRIPS Strp strips, 1 each by Miscellaneous route 3 (three) times a day before meals. Test glucose when sensor fails or calibration required dx E11.42, on insulin pump and sensor gabapentin (NEURONTIN) 300 MG capsule, Take by mouth 3 (three) times a day. 600 mg in the am& noon , 900 mg nightly insulin lispro U-200 (HUMALOG KWIKPEN INSULIN) 200 unit/mL (3 mL) InPn subcutaneous pen, Inject 15-35 Units under the skin 3 (three) times a day before meals. LANTUS SOLOSTAR U-100 INSULIN 100 unit/mL (3 mL) InPn injection pen, Inject 60 Units under the skinnightly at bedtime. lidocaine-prilocaine (EMLA) cream, Apply 1 Application topically once. MULTIVITAMIN ORAL, Take by mouth. lisinopril (PRINIVIL,ZESTRIL) 10 MG tablet, 1 tab BID (Patient not taking: Reported on 10/16/2024) Review of Systems Constitutional: Positive for fatigue (variable). Negative for unexpected weight change. Eyes: Negative for unexpected vision change. Respiratory: Negative for cough and shortness of breath. Cardiovascular: Positive for leg swelling (slight in feet). Negative for chest pain. Gastrointestinal: Negative for constipation and diarrhea. Genitourinary: Positive for nocturia (1-4x depending upon fluid intake later in the day). Neurological: Positive for numbness. Occasional tingling no paraesthesia Psychiatric/Behavioral: Positive for sleep disturbance. Objective: Physical Exam Vitals reviewed. Constitutional: Appearance: Normal appearance. Skin: General: Skin is warm. Neurological: Mental Status: She is alert and oriented to person, place, and time. Gait: Gait abnormal (using a walker). Psychiatric: Mood and Affect: Mood normal. Behavior: Behavior normal. Assessment/Plan: Problem List Items Addressed This Visit Type 2 diabetes mellitus with peripheral neuropathy - Primary Control is reasonable but not optimal based upon the patient's freestyle liliana 3+ sensor download. No frequent or severe hypoglycemia. She is currently on a break from her chemotherapy and her glucose levels are starting to improve. Will maintain her dosing for now but she will call of there is anychanges in her glucose levels for insulin adjustments. Continue to work on eating healthy and beingactive. To call or message with any issues managing her glucose levels. Up to date with ophtho. Will not be due to get labs for a couple months due to having transfusions about 1.5 months ago. Relevant Medications LANTUS SOLOSTAR U-100 INSULIN 100 unit/mL (3 mL) InPn injection pen I personally spent a total of 38 minutes on the care of this patient on the date of the encounter, excluding the time taken to download and review the patient's CGM. This included face to face time during the visit as well as non-face to face time spent on chart review, documentation, and care coordination. * Samanta Mcghee MD - 02/22/2025 3:10 PM EDT Subject Line: Provider Attestation I have reviewed the notes, assessments, and/or procedures performed by JENNYFER Robles. I concur with her documentation of Alejandra Jay. documented in this encounter Miscellaneous Notes * Assessment & Plan Note - Aura Hobbs PA-C - 02/22/2025 4:50 PM EDTAssociated Problem(s): Type 2 diabetes mellitus with peripheral neuropathy Control is reasonable but not optimal based upon the patient's freestyle liliana 3+ sensor download. No frequent or severe hypoglycemia. She is currently on a break from her chemotherapy and her glucose levels are starting to improve. Will maintain her dosing for now but she will call of there is anychanges in her glucose levels for insulin adjustments. Continue to work on eating healthy and beingactive. To call or message with any issues managing her glucose levels. Up to date with ophtho. Will not be due to get labs for a couple months due to having transfusions about 1.5 months ago. documented in this encounter Plan of Treatment Upcoming Encounters Date Type Department Care Team (Late st Contact Info) Description 05/31/2025 3:00 PM EST Office Visit [address] [phone] Samanta Mcghee MD [address] [place] [address] 09/13/2025 1:30 PM EDT Office Visit [address] [phone] Aura Hobbs PA-C 22 [place] [address] 11/08/2025 2:00 PM EDT Office Visit [facility] [address] [facility] [address] [place] [address] Ilene Arvizu MD 15 [facility] [address]. [address] [place] [address] 12/13/2025 2:40 PM EDT Office Visit [facility] [address] [place] [phone] Samanta Mcghee MD [address] [place] [phone] documented as of this encounter Visit Diagnoses Diagnosis Type 2 diabetes mellitus with peripheral neuropathy- Primary documented in this encounter Additional Health Concerns Assessment Noted Time PHQ-2 Depression Total Score: 0 07/26/19 1:01 PM EST documented as of this encounter Care Teams Hand Quilter Relationship Specialty Start Date End Date Ilene Arvizu MD 15 [facility] [place] [address] [email or web address] PCP - General Family Medicine 10/25/23 Jamie Alvarado MD [address] [place] [address] [place] [address] Ophthalmology 02/04/20 Yousif Carney MD [address] [place] [address] [place] [address] Nephrology 07/11/22 Mireille Garcia MD [address] [place] [address] [facility] [place] [address] Obstetrics and Gynecology 12/06/23 documented as of this encounter Additional Source Comments The information contained in this document represents components of the legal health record. It is not the complete legal health record.[facility]
--- OUTSIDE RECORDS SUMMARY | 2025-02-26 13:27 | XMS_ITS | Encounter Summary ---
Author Organization [facility] Address [address] [place] [address] [place] [phone] Phone Care Team Providers Care Mirror Polisher Name Role Phone Jamie Alvarado MD Unavailable Yousif Carney MD Unavailable Ilene Arvizu MD Primary Care Provider [phone] Mireille Garcia MD Unavailable [phone] Reason for Visit * Reason Comments Medication Refill Encounter Details Date Type Department Care Team (Late st Contact Info) Description 02/18/2025 Refill [facility] Endocrinology [address] [place] [address] Aura Hobbs PA-C 22 [place], [place] [phone] [email or web address] Medication Refill Social History Tobacco Use Types Packs/Day Years [...] high school, GED, job training, learning the Salvadorean language, technical skills, or developing parenting skills)? [...] PM EST documented as of this encounter Progress Notes * Nessa Sanabria MA - 02/19/2025 8:53 AM EDT Rx Care Gap Status - Instructions for Clinical Staff (prescriber discretion applies): > Mismatch review guide > At least one request does not meet full criteria. Specifics below. > Labs due: Please remind patient. > Orders needed: Click OPA and Accept to open SmartSet. A1c BMP - Needs order * Lipid panel - Needs order * Visit Info Last visit: 08/07/2024 Aura Hobbs PA-C - Endocrinology [facility] > Requested f/u: Not specified Upcoming visit: 02/22/2025 Aura Hobbs PA-C - Endocrinology [facility] BTWN ACTIONS TAKEN BY Nessa Sanabria MA - Labs needed - Teed up orders and/or reminded pt. Diabetes Rx Protocol (on Diabetes Registry) - insulin glargine,hum.rec.anlog Criteria not met; renew for up to 3 months. Visit in the past 14 months: Yes Clinical criteria: - BMP within past year: No - A1c within past 6 months: None (has active order) - Lipid panel within past year: No (LDL 91 on 12/12/2023) - Urine microalbumin within past year or on KAYLA/ARB: Yes Lab Results Component Value Date SODIUM 141 06/21/2023 POTASSIUM 5.0 06/21/2023 CHLORIDE 106 06/21/2023 CO2 21 06/21/2023 BUN 25 (H) 06/21/2023 CREATININE 1.30 06/21/2023 EGFR 46 (L) 06/21/2023 Lab Results Component Value Date Creatinine, serum - External 1.25 05/09/2023 CREATININE 1.30 06/21/2023 CREATININE 1.30 03/29/2023 EGFR 46 (L) 06/21/2023 EGFR 46 (L) 03/29/2023 EGFR 46 (L) 12/27/2022 Lab Results Component Value Date HEMOGLOBIN A1C 7.1 (H) 06/21/2023 Hemoglobin A1c 7.4 (*) 07/22/2021 Microalbumin/Creatinine Ratio, urine - External 13.47 03/07/2022 URINE MICROALBUMIN 3.0 (H) 10/31/2017 Lab Results Component Value Date LDL 91 12/12/2023 HDL 37 12/12/2023 CARDIAC RISK RATIO 4.5 (H) 12/12/2023 TRIGLYCERIDES 193 (H) 12/12/2023 CHOLESTEROL 167 12/12/2023 Health Maintenance Labs Due / Due Soon Topic Date Due CREATININE LEVEL 10/28/2024 POTASSIUM LEVEL 10/28/2024 documented in this encounter Plan of Treatment Upcoming Encounters Date Type Department Care Team (Late st Contact Info) Description 05/31/2025 3:00 PM EST Office Visit [facility] Endocrinology [place] [address] [place] [phone] Samanta Mcghee MD [address] [place] [address] 09/13/2025 1:30 PM EDT Office Visit [facility] Endocrin[facility] [place] [address] [place] [phone] Aura Hobbs PA-C [address] [place] [address] 11/08/2025 2:00 PM EDT Office Visit [facility] 15 [facility] [address] [place] [address] Ilene Arvizu MD 15 [facility] [address] [place] [address] 12/13/2025 2:40 PM EDT Office Visit [facility] Endocrinology [place] [address] [place] [phone] Samanta Mcghee MD [address] [address] documented as of this encounter Visit Diagnoses Diagnosis Type 2 diabetes mellitus with peripheral neuropathy documented in this encounter Additional Health Concerns Assessment Noted Time PHQ-2 Depression Total Score: 0 07/26/19 24 1:01 PM EST documented as of this encounter Care Teams Mirror Polisher Relationship Specialty Start Date End Date Ilene Arvizu MD [address] [address] PCP - General Family Medicine 10/25/23 Jamie Alvarado MD [address] [place] [address] Ophthalmology 02/04/20 Yousif Carney MD [address] [place] [address] [facility] [address] [place] [address] Nephrology 07/11/22 Mireille Garcia MD [address] [place] [address] [facility] [place] [address] Obstetrics and Gynecology 12/06/23 documented as of this encounter Additional Source Comments The information contained in this document represents components of the legal health record. It is not the complete legal health record.[facility]
--- OUTSIDE RECORDS SUMMARY | 2025-02-26 13:27 | XMS_ITS | Clinical Summary ---
Author Organization [facility] Address [address] [place] [address] Care Team Providers Care Induction Brazer Name Role Phone Jovanni Ortiz MD Primary Care Provider [phone] Allergies No known active allergies Medications Medication [...] Screening (DEXA Scan) 2023 Influenza Vaccine (#1) 2025 RSV Adult > 60+ Yrs or Pregn ant (1 - 1-dose 75+ series) 2033 Hepatitis B Vaccines Aged Out No long er eligible based on patient's age to complete this topic RSV Ped < 20 months Aged Out No longe r eligible based on patient's age to complete this topic Care Teams Induction Brazer Relationship Specialty Start Date End Date Jovanni Ortiz MD 40 [facility] [place] [address] PCP - General Internal Medicine 03/01/17
--- OUTSIDE RECORDS SUMMARY | 2025-02-26 13:27 | XMS_ITS | Clinical Summary ---
Author Organization [facility], Address [address] [place] [address] Phone Care Team Providers Care Shank Stitcher Name Role Phone Jovanni Ortiz MD Primary Care Provider [phone] Allergies Active Allergy Reactions Criticality Noted Date [...] of breast cancer, underwent reconstruction with tissue sewing supervisor and permanent implant on right side Tubular [...] 91 07/19/2023 10:56 AM EST Temperature 36.7 C (98.1 F) 07/19/2023 10:56 AM EST Respiratory Rate 16 07/19/2023 10:56 AM EST [...] Visual Foot Exam 07/30/2020 Influenza Vaccine (#1) 2025 2, 04/14/2021, 04/01/2020, Additional history exists Hepatitis B Vaccine Aged Out No longe r eligible based on patient's age to complete this topic Insurance [facility] Care Teams Shank Stitcher Relationship Specialty Start Date End Date Jovanni Ortiz MD [facility] [address] [place] [address] PCP - General Internal Medicine 07/05/23
--- OUTSIDE RECORDS SUMMARY | 2025-02-26 13:27 | XMS_ITS | Clinical Summary ---
Author Organization [facility] Address [address] [place] [phone] Phone Care Team Providers Care Avionics Installer Name Role Phone Jamie Alvarado MD Unavailable Yousif Carney MD Unavailable Ilene Arvizu MD Primary Care Provider Mireille Garcia MD Unavailable [phone] Allergies Active Allergy Reactions Criticality Noted Date Comments Adhesive Other (See Comments) High 09/30/2020 Blisters with Tegaderm and prolonged use of bandaids Ok with steri strip and paper tape Metformin Nausea and/or Vomiting 10/31/2017 Venom-Honey Bee Other (See Comments),Swelling High 09/30/2020 Liraglutide Nausea and/or Vomiting 10/31/2017 Medications aspirin 81 MG EC tablet Take 81 mg by mouth daily. Active MULTIVITAMIN ORAL Take by mouth. Active freestyle liliana 3 readerIndications :Type 2 diabetes mellitus with peripheral neuropathy To monitor blood glucose 1 each 06/21/20 23 Active FREESTYLE PRECISION KIMBERLY STRIPS Strp stripsIndications :Type 2 diabetes mellitus with peripheral neuropathy 1 each by Miscellaneous route 3 (three) times a day before meals. Test glucose when sensor fails or calibration required dx E11.42, on insulin pump and sensor 100 strip 11 07/22/19 24 Active lisinopril (PRINIVIL,ZESTRIL ) 10 MG tabletIndications :Essential hypertension 1 tab BID 60 tablet 11 07/26/19 24 Active Additional Information Patient not taking.Informant: Self, Reported on 02/22/2025 lidocaine-priloca ine (EMLA) cream Apply 1 Application topically once. 08/09/19 Active gabapentin (NEURONTIN) 300 MG capsule Take by mouth 3 (three) times a day. 600 mg in the am& noon , 900 mg nightly 12/05/19 Active cyanocobalamin, vitamin B-12, 100 MCG tablet Take 1 tablet by mouth every morning. 12/30/19 24 Active FREESTYLE LILIANA 3 PLUS SENSOR DeviIndications:T ype 2 diabetes mellitus with peripheral neuropathy To monitor blood glucose, to change the sensor every 15 days 6 each 3 03/30/20 24 Active insulin lispro U-200 (HUMALOG KWIKPEN INSULIN) 200 unit/mL (3 mL) InPn subcutaneous penIndications:Ty pe 2 diabetes mellitus with peripheral neuropathy Inject 15-35 Units under the skin 3 (three) times a day before meals. 45 mL 3 07/13/19 25 Active amLODIPine (NORVASC) 10 MG tablet Take 10 mg by mouth daily. 08/03/19 25 Active atorvastatin (LIPITOR) 80 MG tabletIndications :Mixed hyperlipidemia Take 1 tablet (80 mg total) by mouth every morning. 90 tablet 3 11/28/19 25 Active LANTUS SOLOSTAR U-100 INSULIN 100 unit/mL (3 mL) InPn injection penIndications:Ty pe 2 diabetes mellitus with peripheral neuropathy Inject 60 Units under the skin nightly at bedtime. 60 mL 3 02/23/20 25 Active LANTUS SOLOSTAR U-100 INSULIN 100 unit/mL (3 mL) InPn injection penIndications:Ty pe 2 diabetes mellitus with peripheral neuropathy Inject 60 Units under the skin nightly at bedtime. 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 Leukocytes fight infection and in their relative absence, the body is more vulnerable to infection than it normally would be. That is why she got sick when Elijah did not even though they mostly eat the same things. It is important that she keep eating to keep her strength up and be able to fight the cancer. I offered her a referral to a director of teaching and learning who can help find foods that appeal and are diabetes friendly so even when her appetite is low, she can at least have smaller portions of healthy foods that will help keep her from losing weight precipitously. She declines and is welcome to reach out if she changes her mind. She did agree to try Ensure and we will see if we can get it covered by her insurance. We discussed the role of OT and the ways he might be able to help her. I encouraged her to at least have 1 session in the home and see if she thought it could be helpful, especially since she is needing a walker and presumably impaired in certain ADLs. She is notably pale today and I am concerned that her transfusion may not have been sufficient or she may rapidly growing more anemic again and I am going to repeat her CBC today so that if she needs more blood there is time to transfuse her before her surgery. I will fax her results to Dr. Garcia. Assessment & Plan (10/31/2023 10:13 AM EDT): Treatment plan per chemical etch operator onc. Will request records. hasb een primary caregiver but recently broke his hip and required hemiarthroplasty so is quite limited in his ADLs/iADLs. She could benefit from a INFECTION PREVENTION COORDINATOR at this time. I recommend they call their local elder services agency to be evaluated for service eligibility; I already gave him their contact information at his own visit recently. Tubular adenoma of colon 07/22/2021 Stage 3a chronic kidney disease 09/30/2020 Dupuytren contracture 05/12/2019 Fibromyalgia 11/04/2018 History of breast cancer 05/07/2018 Essential hypertension 05/07/2018 Assessment & Plan (11/05/2024 8:57 AM EDT): Well controlled. On lisinopril. Assessment & Plan (10/16/2024 4:00 PM EDT): - Off lisinopril for a couple of weeks due to high potassium levels detected during a hospital stay. - Blood pressure readings at home have been inconsistent, with some readings as high as 150/80 mmHg. - Blood pressure is at goal today. Advised patient if she does end up needing to go back on lisinopril for diabetic protection and this can be tolerated based on potassium levels, would recommend going off amlodipine to avoid hypotension. I will defer to her line installer on this issue. Assessment & Plan (05/04/2024 2:05 PM EST): Well controlled. On lisinopril. Assessment & Plan (10/29/2023 10:54 AM EDT): Well controlled. On lisinopril. History of pulmonary embolism 10/31/2017 Mixed hyperlipidemia 10/31/2017 Assessment & Plan (10/31/2023 10:11 AM EDT): Lipid panel to monitor statin Type 2 diabetes mellitus with peripheral neuropa thy Overview (05/04/2024): Dx 2007 - intolerant metformin & GLP (GI), SGLT2i (yeast), TZD (fluid), inadequate response sulfonylurea & DPP4 Assessment & Plan (02/22/2025 4:50 PM EDT): Control is reasonable but not optimal based upon the patient's freestyle liliana 3+ sensor download. No frequent or severe hypoglycemia. She is currently on a break from her chemotherapy and her glucose levels are starting to improve. Will maintain her dosing for now but she will call of there is any changes in her glucose levels for insulin adjustments. Continue to work on eating healthy and being active. To call or message with any issues managing her glucose levels. Up to date with Setred. Will not be due to get labs for a couple months due to having transfusions about 1.5 months ago. Assessment & Plan (11/05/2024 8:59 AM EDT): Control currently poor. No frequent or severe hypoglycemia. Will increase lantus to 60 units & if still running persistently high can increase to 66 units. After chemo (w/ steroids), can increase mealtime insulin to 40 units & would hydrate well & be careful w/ carbs. Continue to work on eating healthy & keeping active, as able. To call or send in BG with problems with glycemic control. Scheduled for ophtho. Follows w/ renal. Assessment & Plan (10/16/2024 4:00 PM EDT): - Blood glucose levels spike into the 300s on the day of chemotherapy and for 1- 2 days after. - Lantus dosage increased to 54 units. - Last A1c test was over a year ago; an A1c test will be ordered to be completed within the next month. - Monitoring blood glucose levels and adjusting insulin dosage as needed. Orders: Hemoglobin A1c; Future Assessment & Plan (08/20/2024 12:07 PM EST): Control is reasonable/good based upon the patient's freestyle liliana 3 sensor download. No frequent or severe hypoglycemia. She has been having some post prandial spikes even with using the insulin sliding scale. Will have her add 2 units at meals to help prevent the post prandial spikes. Continue to work on eating healthy and being active. To call or message with any issues managing her glucose levels. Up to date with ophtho. Will get recent labs from renal Assessment & Plan (05/04/2024 2:06 PM EST): Control reasonable. No frequent or severe hypoglycemia. Appetite better since finished chemo, just started maintenance rx. Weight, appetite & glucose are increasing. Will increase lantus to 54 units. Continue to work on eating healthy & keeping active. To call or send in BG with problems with glycemic control. Given slip to include HbA1c with upcoming labs for oncology. To call if hasn't heard from us within 1-2 weeks. Up to date with ophtho. Follows w/ renal. Assessment & Plan (02/07/2024 12:22 PM EDT): Control is good based upon the patient's freestyle liliana 3 sensor download. No frequent or severe hypoglycemia. She is still having occasional lows after meals, she will correct and then is fine. Discussed continuing to lower her humalog sliding scale to help prevent the lows. Continue to work on eating healthy and being active. To call or message with any issues managing her glucose levels. Assessment & Plan (10/29/2023 10:57 AM EDT): Control reasonable. Going high after chemo. Tending to drop after lunch. No severe hypoglycemia. Advised to cut back on lunch insulin by 5 units from current. To continue to pay attention to impact of different foods on BG & to make some adjustments in humalog dosing based on how she typically responds to certain types/portions of food. Continue to work on eating healthy & keeping active. To call or send in BG with problems with glycemic control. Will do labs soon. To call if hasn't heard from us within 1-2 weeks. Scheduled for ophtho. Follows w/ renal. Foot & nail care good. Assessment & Plan (06/21/2023 2:43 PM EST): Control is good based upon reviewing the patient's freestyle liliana 14 day reader- she doesn't want it downloaded. She has been having episodes of hypoglycemia after meals. She will correct and then is fine. Will lower her humalog sliding scale by 5 units at each level to help prevent the lows. Continue to work on eating healthy and being active. To call or message with any issues managing her glucose levels. Up to date with ophtho. Labs ordered Assessment & Plan (04/01/2023 2:21 PM EDT): Control is good based upon reviewing the patient's freestyle liliana 14 day reader- she doesn't want it downloaded. No frequent or severe hypoglycemia. Will maintain her regimen. Continue to work on eating healthy and being active. To call or message with any issues managing her glucose levels. Up to date with ophtho. Labs ordered Assessment & Plan (12/28/2022 3:11 PM EDT): Control suboptimal. Tending to drop after breakfast/lunch, & go high later. No severe hypoglycemia. Advised to cut back on bkfst/lunch doses of humalog to 30 units & if still going high after evening meal when lows have resolved, to increase dinner dose to 38 units. Advised to pay attention to impact of different foods on BG & to make some adjustments in humalog dosing based on how she typically responds to certain types/portions of food. Continue to work on eating healthy & keeping active. To call or send in BG with problems with glycemic control. Will do labs today. To call if hasn't heard from us within 1-2 weeks. Up to date with maki, reviewed September note from Dr. Alvarado. Umalb/creat up to date, normal. Follows w/ renal. BP under reasonable control. Assessment & Plan (09/21/2022 3:20 PM EDT): Control is reasonable based upon the patient's freestyle liliana sensor average. No frequent or severe hypoglycemia. She has been off of jardiance since July due to the cost of it. She is hoping to be able to restart it in December when she starts on Medicare. When looking at her glucose levels on her sensor reader will try to split her lantus dosing to see if this give her better coverage throughout the day. She does not want to increase her insulin dosing at this time. Continue to work on eating healthy and being active. To call with any issues with glucose control. Up to date with maki [facility] current use of insulin Assessment & Plan (08/20/2024 12:05 PM EST): Will maintain her lantus dosing. Will have her take a couple extra units of lispro at meals to help prevent the post prandial spikes Peripheral neuropathy Overview (10/16/2024): Pain in hands due to both diabetes and chemotherapy. Partial relief from gabapentin Assessment & Plan (10/16/2024 4:00 PM EDT): - Neuropathy in hands and feet primarily due to chemotherapy and partially to diabetes. - Gabapentin provides some relief but does not significantly alleviate symptoms. - Neuropathy exacerbated by steam from microwaved food. - Continued use of gabapentin and monitoring for symptom changes. Resolved Problems Problem Noted Date Diagnosed Date Resolved Date Campylobacter gastroenteritis 12/13/2023 12/13/2023 History of DVT (deep vein thrombosis) 10/31/2017 10/31/2023 Encounters Date Type Department Care Team Description 02/22/2025 3:10 PM EDT Office Visit [facility] End[facility] [address] [address] [place] [address] Aura Hobbs PA-C Type 2 diabetes mellitus with peripheral neuropathy (Primary Dx) 02/18/2025 Refill [facility] [address] [place] [address] Aura Hobbs PA-C Medication Refill 01/28/2025 Orders Only [facility] Medicine [address] [place] [address] ProviderJeff MD 12/18/2024 Telephone [facility] [address] [place] [address] Krupa Ponce MA Blood Sugar Problem 11/27/2024 Refill [facility] [address] [place] [address] Beatriz Littlejohn MA Medication Refill from Last 3 Months Immunizations Immunization Administration Dates Next Due COVID-19 (Pre-04/22) Pfizer Vaccine, mRNA, PF 11/03/2020,10/13/2020 COVID-19, Unspecified Formulation 05/22/2022 INFLUENZA, SPLIT VIRUS, TRIVALENT PF 04/10/2016, 04/15/2015 INFLUENZA, SPLIT VIRUS, TRIV ALENT W/ PRESERVATIVE IM 03/01/2021,04/13/2014,04/10/2011 Influenza High-Dose Trivalen t Preservative Free IM 03/17/2024 Influenza Quadrivalent Adjuv anted Preservative Free IM 06/03/2023 Influenza Quadrivalent Prese rvative Free IM 06/03/2023,05/11/2022,04/14/2021,2019,05/12/2019,05/07/2018 Influenza trivalent preserva tive free intradermal 06/10/2013 Influenza, Unspecified Formulation 04/01/2009 Pneumococcal conjugate PCV20 07/24/2022 Tdap 02/03/2020 Family History Medical History Relation Comments Melanoma Brother 1 No Known Problems Brother 2 Hypertension Father Lymphoma Father Breast cancer Maternal Aunt Ovarian cancer Maternal Aunt Alzheimer's disease Mother Breast cancer Paternal Aunt Hypertension Sibling Autoimmune disease Sister rheumatoid ne utrophilic dermatitis Fibromyalgia Sister Relation Status Comments Brother 1 Alive Brother 2 Alive Father Maternal Aunt Mother Paternal Aunt Sibling Sister Alive Social History Tobacco Use Types Packs/Day Years Used Date Smoking Tobacco: Never Smokeless Tobacco: Never Tobacco Cessation:Counseling Given: Not Answered Alcohol Use Standard Drinks/Week Comments Not Currently [...] high school, GED, job training, learning the French language, technical skills, or developing parenting skills)? [...] is your housing situation today? I have gilbertodinah pearson 10/28/2023 How many times have you move [...] Orientation Straight 07/24/2022 12 :55 PM EST Last Filed Vital Signs Vital Sign Reading Time Taken Comments Blood Pressure 120/70 02/22/2025 3:26 PM EDT Pulse 87 02/22/2025 3:26 PM EDT Temperature 36.4 C (97.6 F) 11/02/2024 3:15 PM EDT Respiratory Rate 25 11/02/2024 3:15 PM EDT Oxygen Saturation 97% 02/22/2025 3:26 PM EDT Inhaled Oxygen Concentration - - Weight 109.3 kg (241 lb) 02/22/2025 3:26 PM EDT Height 159.4 cm (5' 2.76 ) 02/22/2025 3:26 PM ED T Body Mass Index 43.02 02/22/2025 3:26 PM EDT Plan of Treatment Upcoming Encounters Date Type Department Care Team (Late st Contact Info) Description 05/31/2025 3:00 PM EST Office Visit [facility] Endocrinology [address] [phone] Samanta Mcghee MD [address] [place] [address] [email or web address] 09/13/2025 1:30 PM EDT Office Visit [facility] Endocrin[facility] [place] [address] [place] [phone] Aura Hobbs PA-C [address] [place] [address] [email or web address] 11/08/2025 2:00 PM EDT Office Visit [facility] [address] [facility] [address] [facility] [address] [place] [address] Ilene Arvizu MD [address] [facility] [address] [place] [address] [email or web address] 12/13/2025 2:40 PM EDT Office Visit [facility] [place] [address] [place] [phone] Samanta Mcghee MD [address] [address] [email or web address] Health Maintenance Due Date Last Done Comments ZOSTER VACCINES (1 of 2) 1977 COLOGUARD 2003 FIT TEST 2003 FOBT 2003 SIGMOIDOSCOPY 2003 VIRTUAL COLONOSCOPY 2003 DEPRESSION SCREENING 07/26/2024 07/26/2023 COVID-19 VACCINE ( season) 2024 03/17/2024, 06/10/2023, 05/22/2022, Additional history exists CREATININE LEVEL 10/28/2024 10/29/2023, , 05/09/2023, Additional history exists POTASSIUM LEVEL 10/28/2024 10/29/2023, 06/01, 05/09/2023, Additional history exists DIABETIC EYE EXAM 12/09/2024 12/10/2023, , 07/03/2018 INFLUENZA VACCINE (#1) 2025 , 06/03/2023, 06/03/2023, Additional history exists RSV VACCINE (1 - Risk 60-74 years 1-dose series) 03/01/2025 Postponed from 2018 (Not Clinically Appropriate) BLOOD PRESSURE 08/25/2025 02/22/2025 HEMOGLOBIN A1C 11/10/2025 06/21/2023, 03/02, 12/27/2022, Additional history exists Postponed from 12/21/2023 (Patient Declines / Guardian Declines) MAMMOGRAM 04/16/2026 04/16/2024, 03/31, 09/05/2022, Additional history exists COLONOSCOPY 04/25/2027 04/25/2022, 08/2016, 10/31/2016, Additional history exists COLORECTAL CANCER SCREENING 04/25/2027 PAP SMEAR 05/15/2028 05/15/2023, 12/2019, 10/19/2016, Additional history exists Adult Td,Tdap Booster 02/02/2030 02/03/2020 HEPATITIS C SCREENING Completed 05/12/2019 OSTEOPOROSIS SCREENING INITIAL (ONE-TIME) Completed 08/10/2020 PNEUMOCOCCAL VACCINES (50+ years) Completed 07/24/2022 SMOKING STATUS SCREENING (Once After 26 Yrs) Completed 11/02/2024 HEPATITIS A VACCINES Aged Out No long er eligible based on patient's age to complete this topic HIB VACCINES Aged Out No longer eligi ble based on patient's age to complete this topic MENINGOCOCCAL VACCINES (ACWY) Aged Out No longer eligible based on patient's age to complete this topic MENINGOCOCCAL VACCINES (B) Aged Out N o longer eligible based on patient's age to complete this topic Medical Devices Not on file Procedures Procedure Name Priority Date/Time Associated Diagnosis Comments HM MAMMOGRAPHY Routine 04/16/2024 9:44 AM EDT HM DIABETES EYE EXAM FOR RESULT ENTRY ONLY Routine 12/10/2023 8:48 AM EDT BASIC METABOLIC PANEL Routine 10/29/2023 11:04 AM EDT Type 2 diabetes mellitus with peripheral neuropathy HEMOGLOBIN A1C Routine 06/21/2023 2:23 PM EST Type 2 diabetes mellitus with peripheral neuropathy PAP SMEAR FOR RESULT ENTRY ONLY Routine 05/15/2023 HM COLONOSCOPY FOR RESULT ENTRY ONLY Routine 04/25/2022 BD DXA SCREENING Routine 08/10/2020 HEPATITIS C ANTIBODY, QUALITATIVE Routine 05/12/2019 2:03 PM EST Routine general medical examination at a [facility] care facility from Last 3 Months or Most Recently Relevant to Health Maintenance Results * HM MAMMOGRAPHY FOR RESULT ENTRY ONLY (04/16/2024 9:44 AM EDT) Historical Provider HEALTH MAINTENANCE Edited Result - Final * HM DIABETES EYE EXAM FOR RESULT ENTRY ONLY (12/10/2023 8:48 AM EDT) Ilene Arvizu MD HEALTH MAINTENANCE Edited Re sult - Final * Basic metabolic panel (10/29/2023 11:04 AM EDT) Blood Samanta Mcghee MD LAB BLOOD ORDERABLES E dited Result - Final [address] [phone] * (ABNORMAL) Hemoglobin A1c (06/21/2023 2:23 PM EST) HEMOGLOBIN A1C 7.1(H) 4.3 - 5.8 % [facility] Blood 06/21/2023 2:23 PM EST 06/21/2023 2:24 PM EST Aura Hobbs PA-C LAB BLOOD ORDERABL ES Final Result Performing Organization Address City/[facility]/ZIP Co de Phone Number [address] [phone] * HM PAP SMEAR FOR RESULT ENTRY ONLY (05/15/2023) HM Pap smear NILM, HPV neg Historical Provider HEALTH MAINTENANCE Final Result * COLONOSCOPY FOR RESULT ENTRY ONLY (04/25/2022) Historical Provider HEALTH MAINTENANCE Edited Result - Final * DXA Screening (08/10/2020) Anatomical Region Laterality Modality Bone Density Bone Density Diane Avilez NP IMG BD BONE DENSITY DEXA Edited Result - Final * Hepatitis C antibody, qualitative (05/12/2019 2:03 PM EST) HCV NON-REACTIV E NON-REACTI VE [facility] Blood 05/12/2019 2:03 PM EST 05/12/2019 2:12 PM EST Diane Avilez NP LAB BLOOD ORDERABLES Final Resu lt Performing Organization Address City/State/[facility] Co de Phone Number [address] [phone] from Last 3 Months or Most Recently Relevant to Health Maintenance Insurance [employer] RE[employer] Care Teams Avionics Installer Relationship Specialty Start Date End Date Ilene Arvizu MD [address] [place] [phone] PCP - General Family Medicine 10/25/23 Jamie Alvarado MD [address] [place] [address] [place] [address] Ophthalmology 02/04/20 Yousif Carney MD [address] [place] [address] Dr [facility] [place] [address] Nephrology 07/11/22 Mireille Garcia MD [address] [place] [address] 4B_OB/[place] [address] Obstetrics and Gynecology 12/06/23 Additional Source Comments The information contained in this document represents components of the legal health record. It is not the complete legal health record.[facility]
--- OUTSIDE RECORDS SUMMARY | 2025-02-26 13:27 | XMS_ITS | Encounter Summary ---
Author Organization [facility] Address [address] [place] [address] Phone Care Team Providers Care Power Electronics Engineer Name Role Phone Jamie Alvarado MD Unavailable Yousif Carney MD Unavailable Ilene Arvizu MD Primary Care Provider Mireille Garcia MD Unavailable Encounter Details Date Type Department Care Team (Late st Contact Info) Description 01/28/2025 Orders Only [facility] [address] [place] [address] Provider, MD Jeff [address] [place] [address] Social History Tobacco Use Types Packs/Day Years [...] high school, GED, job training, learning the Greenlandic language, technical skills, or developing parenting skills)? [...] your housing situation today? I have gilberto pearson 10/28/2023 How many times have you [...] PM EST documented as of this encounter Plan of Treatment Upcoming Encounters Date Type Department Care Team (Late st Contact Info) Description 05/31/2025 3:00 PM EST Office Visit [facility] Endocrinology [place] [address] [place] [phone] Samanta Mcghee MD [address] [address] 09/13/2025 1:30 PM EDT Office Visit [facility] 40 [place] [phone] Aura Hobbs PA-C 22 [place], [place] [phone] [email or web address] 11/08/2025 2:00 PM EDT Office Visit [facility] 15 [facility] [address] [place] [address] Ilene Arvziu MD 15 [facility] Mark. [address] [place] [address] [email or web address] 12/13/2025 2:40 PM EDT Office Visit [facility] 40 [place] [phone] Samanta Mcghee MD [address] [address] documented as of this encounter Procedures Procedure Name Priority Date/Time Associated Diagnosis Comments HEMOGLOBIN A1C Routine 05/05/2024 10:51 AM EST documented in this encounter Results * Hemoglobin A1c (05/05/2024 10:51 AM EST) us Historical Provider LAB BLOOD ORDERABLES Onelia l Result documented in this encounter Visit Diagnoses Not on filedocumented in this encounter Additional Health Concerns Assessment Noted Time PHQ-2 Depression Total Score: 0 07/26/19 1:01 PM EST documented as of this encounter Care Teams Power Electronics Engineer Relationship Specialty Start Date End Date Ilene Arvizu MD 15 [facility] Mark [address] [place] [address] [email or web address] PCP - General Family Medicine 10/25/23 Jamie Alvarado MD [address] [place] [address] [place] [address] Ophthalmology 02/04/20 Yousif Carney MD [address] [place] [address] [place] [address] Nephrology 07/11/22 Mireille Garcia MD [address] [address] 4B_OB/[place] [address] Obstetrics and Gynecology 12/06/23 documented as of this encounter Additional Source Comments The information contained in this document represents components of the legal health record. It is not the complete legal health record.[facility]
[2025-02-26 15:06] LABS: Anion Gap 12 (12-20); Blood Urea Nitrogen 20 mg/dL (9-16); Carbon Dioxide 23 mmol/L (22-29); Chloride 112 mmol/L (96-108); Estimated Glomerular Filt Rate 47; Potassium 4.4 mmol/L (3.3-5.1); Sodium 143 mmol/L (135-145)
== END 2025-02-26 13:05 | disposition home or self-care (01) ==
LOC: HO.LAB 13:04
PROVIDERS: PCP Family Medicine; Visit Provider Internal Medicine Nephrology
DX: E11.22 Type 2 diabetes mellitus with diabetic chronic kidney disease (principal); I12.9 Hypertensive chronic kidney disease with stage 1 through stage 4 chronic kidney disease, or unspecified chronic kidney disease; N18.30 Chronic kidney disease, stage 3 unspecified; E87.5 Hyperkalemia
CPT/HCPCS: 36415; 80051; 82565; 84520

== ENCOUNTER 2025-03-03 11:04 | Outpatient (AMB) | payer OTHER, SELFPAY ==
--- NOTE | 2025-03-03 11:24 | HO.NEPHOV ---
Vital Signs 03/03/25 11:30 Height 5 ft 4 in Weight 242 lb 2 oz BMI 41.6 BP 110/60 Blood Pressure Location Lt brachial Position Sitting Pulse 75 Pulse Source Pulse Oximeter Pulse Oximetry (%) 97 Oxygen Delivery Method Room Air Intake Visit Reasons: -[facility] Packager And Strapper Required: No Accompanied by: Spouse Allergies liraglutide (From Victoza) Allergy (Intermediate, Verified 03/03/25 11:29) Gastrointestinal Upset metformin Allergy (Intermediate, Verified 03/03/25 11:29) Gastrointestinal Upset transparent dressing (Tegaderm) Allergy (Verified 03/03/25 11:29) Blister HPI Comments Details: Alejandra was seen in the office in follow-up of her chronic kidney disease, hypertension proteinuria. She has diabetic nephropathy. She has HGSC of fallopian tube. She was treated with C1D17 carbo/gemzar and had completed 8 cycles of Avastin. She is off ACEI for now. Her blood sugar is fair. She follows closely with Dr. Mcghee .She had been prescribed Jardiance in the past but could not afford the cost. She has not had any hypoglycemias. Her blood pressure is well controlled. She keeps up with good hydration and avoid nonsteroidal anti-inflammatory medications . she denies any chest pain, shortness of breath, proximal nocturnal dyspnea, orthopnea or pedal edema. She is compliant with her medications. She has neuropathy post chemo. She has been having urinary frequency and occasional dysuria PFSH Medical History DVT (deep venous thrombosis) Pulmonary embolism Hyperlipemia HTN (hypertension) IDDM (insulin dependent diabetes mellitus) Breast cancer, right Surgical History History of reduction surgery of left breast H/O mastectomy Social History Alcohol intake: never Patient Tobacco Use Status: Never used Tobacco Review of Systems Const All systems reviewed & are unremarkable except as noted in HPI and below Physical Exam Vital Signs: Last Vital Signs Pulse 75 03/03/25 11:30 BP 110/60 03/03/25 11:30 Pulse Ox 97 03/03/25 11:30 Oxygen Delivery Method Room Air 03/03/25 11:30 BMI result Body Mass Index 41.6 Const General: comfortable and no acute distress Orientation/consciousness: patient oriented x3 HEENT Head: Yes normocephalic Mouth: Normal oral and palatal mucosa present Eyes EOM: EOMs intact bilaterally Neck Neck: Yes supple Resp Auscultation: clear to auscultation bilaterally Cardio Jugular venous distension: no JVD Rate: regular rate GI Palpation (GI): Soft to palpation Auscultation: normal bowel sounds General: Yes no CVA tenderness Back/Spine/Pelvis Back: no CVA tenderness Skin General skin exam: no rashes or lesions noted Neuro General: patient oriented x3 and moves all extremities Extrem General: Yes no pedal edema Results Reviewed Nephrology Results: Sodium, (135-145) 143 mmol/L 02/26/25 Potassium, (3.3-5.1) 4.4 mmol/L 02/26/25 Chloride, (96-108) 112 mmol/L H 02/26/25 Carbon Dioxide, (22-29) 23 mmol/L 02/26/25 BUN, (9-16) 20 mg/dL H 02/26/25 Creatinine, (0.5-1.4) 1.16 mg/dL 02/26/25 Calcium, (8.4-10.2) 9.2 mg/dL 10/29/24 Urine Creatinine 63.06 mg/dL 10/29/24 Protein/Creatinin Ratio, (<0.2) 0.21 H 10/29/24 Assessment & Plan Assessment & Plan (1) CKD stage 3 due to type 2 diabetes mellitus: Code(s): E11.22 - Type 2 diabetes mellitus with diabetic chronic kidney disease; N18.30 - Chronic kidney disease, stage 3 unspecified Category: Medical (2) Hyperkalemia: Code(s): E87.5 - Hyperkalemia Category: Medical (3) HTN (hypertension): Code(s): I10 - Essential (primary) hypertension Category: Medical Qualifiers: Hypertension type: primary hypertension Qualified Code(s): I10 - Essential (primary) hypertension (4) Dysuria: Code(s): R30.0 - Dysuria Category: Medical Plan Alejandra has history chronic kidney disease from diabetes mellitus. She has a diabetic nephropathy. Her proteinuria had been acceptable. She recently had JAVI and hyperkalemia which is resolved now. She was prescribed Jardiance in the past but could not continue due to its cost. She should avoid nonsteroidal anti-inflammatory medications. She should maintain good hydration. I will ordered for all blood work in F/U. Urine for culture ordered for today. C/W current medications. All questions were answered. Orders: Orders Creatinine 6 Months E11.22 - Type 2 diabetes mellitus with diabetic chronic kidney disease, I10 - Essential (primary) hypertension, N18.30 - Chronic kidney disease, stage 3 unspecified Blood Urea Nitrogen 6 Months E11.22 - Type 2 diabetes mellitus with diabetic chronic kidney disease, I10 - Essential (primary) hypertension, N18.30 - Chronic kidney disease, stage 3 unspecified Electrolytes 6 Months E11.22 - Type 2 diabetes mellitus with diabetic chronic kidney disease, I10 - Essential (primary) hypertension, N18.30 - Chronic kidney disease, stage 3 unspecified Coding Level of Care Code Est Pt Level 4 (31920) Diagnoses CKD stage 3 due to type 2 diabetes mellitus E11.22; N18.30 Hyperkalemia E87.5 Primary hypertension I10 Hypertension type: primary hypertension Dysuria R30.0
[2025-03-03 11:30] VITALS: BP 110/60; PULSE 75; O2SAT 97; BMI 41.6
--- OUTSIDE RECORDS SUMMARY | 2025-03-03 13:36 | XMS_ITS | Encounter Summary ---
Author Organization [facility] Address [address] [place] [address] Phone Care Team Providers Care School Bus Mechanic Name Role Phone Jamie Alvarado MD Unavailable [phone] Yousif Carney MD Unavailable Ilene Arvizu MD Primary Care Provider Mireille Garcia MD Unavailable [phone] Encounter Details Date Type Department Care Team (Late st Contact Info) Description 03/02/2025 Orders Only [facility] [place] [facility] [place] [address] Provider, MD Jeff [address] [place] [address] Social History Tobacco Use Types Packs/Day [...] high school, GED, job training, learning the Omani language, technical skills, or developing parenting skills)? [...] Description 05/31/2025 3:00 PM EST Office Visit [facility] 40 [place] [phone] Samanta Mcghee MD [address] [address] [email or web address] 09/13/2025 1:30 PM EDT Office Visit [facility] 40 [place] [phone] Aura Hobbs PA-C 22 [place] [address] [email or web address] 11/08/2025 2:00 PM EDT Office Visit [facility] [place] [facility] 15 [facility] [address] [place] [address] Ilene Arvizu MD 15 [facility] Mark. [address] [place] [address] [email or web address] 12/13/2025 2:40 PM EDT Office Visit [facility] 40 [place] [phone] Samanta Mcghee MD [address] [address] documented as of this encounter Procedures Procedure Name Priority Date/Time Associated Diagnosis Comments OUTSIDE LAB Routine 02/26/2025 5:01 PM EDT CREATININE/EGFR Routine 02/26/2025 5:01 PM EDT BUN Routine 02/26/2025 5:01 PM EDT documented in this encounter Results * Outside Lab (02/26/2025 5:01 PM EDT) us Historical Provider LAB BLOOD ORDERABLES Onelia l Result * BUN (02/26/2025 5:01 PM EDT) us Historical Provider MD LAB BLOOD ORDERABLES Onelia l Result * Creatinine/eGFR (02/26/2025 5:01 PM EDT) us Historical Provider MD LAB BLOOD ORDERABLES Onelia l Result documented in this encounter Visit Diagnoses Not on filedocumented in this encounter Additional Health Concerns Assessment Noted Time PHQ-2 Depression Total Score: 0 07/26/19 1:01 PM EST documented as of this encounter Care Teams School Bus Mechanic Relationship Specialty Start Date End Date Ilene Arvizu MD [address] [place] [address] [email or web address] PCP - General Family Medicine 10/25/23 Jamie Alvarado MD [address] [place] [address] Dr COLON [address] [place] [address] Ophthalmology 02/04/20 Yousif Carney MD [address] [place] [address] Dr COLON [address] [place] [address] Nephrology 07/11/22 Mireille Garcia MD [address] [place] [address] 4B_OB/INTERNAL COMBUSTION [place] [address] Obstetrics and Gynecology 12/06/23 documented as of this encounter Additional Source Comments The information contained in this document represents components of the legal health record. It is not the complete legal health record.[facility]
--- OUTSIDE RECORDS SUMMARY | 2025-03-03 13:37 | XMS_ITS | Clinical Summary ---
Author Organization [facility], Address [address] [place] [address] Phone Care Team Providers Care Head Bander And Liner Operator Name Role Phone Jovanni Otriz MD Primary Care Provider [phone] Allergies Active Allergy Reactions Criticality Noted Date [...] of breast cancer, underwent reconstruction with tissue personal banking advisor and permanent implant on right side Tubular [...] patient's age to complete this topic Insurance [facility] Care Teams Head Bander And Liner Operator Relationship Specialty Start Date End Date Jovanni Ortiz MD [facility] INTERNAL MED [address] [place] [address] PCP - General Internal Medicine 07/05/23
--- OUTSIDE RECORDS SUMMARY | 2025-03-03 13:39 | XMS_ITS | Clinical Summary ---
Author Organization [facility] Address [address] [place] [address] Care Team Providers Care Care Worker Name Role Phone Jovanni Ortiz MD Primary Care Provider [phone] Allergies No known active allergies Medications Medication [...] age to complete this topic Care Teams Care Worker Relationship Specialty Start Date End Date Jovanni Ortiz MD 40 [facility] Medical [place] [address] PCP - General Internal Medicine 03/01/17
--- OUTSIDE RECORDS SUMMARY | 2025-03-03 13:39 | XMS_ITS | Clinical Summary ---
Author Organization [facility] Address [address] [place] [address] Phone Care Team Providers Care Single Corner Cutter Name Role Phone Jamie Alvarado MD Unavailable Yousif Carney MD Unavailable Ilene Arvizu MD Primary Care Provider Mireille Garcia MD Unavailable [phone] Allergies Active Allergy Reactions Criticality Noted Date [...] I offered her a referral to a veneer repairer machine who can help find foods that appeal [...] (10/31/2023 10:13 AM EDT): Treatment plan per sandfill operator surface onc. Will request records. hasb een primary caregiver but recently broke his hip and required hemiarthroplasty so is quite limited in his ADLs/iADLs. She could benefit from a SOLDERING INSPECTOR at this time. I recommend they call [...] avoid hypotension. I will defer to her green coffee blender on this issue. Assessment & Plan (05/04/2024 [...] her glucose levels. Up to date with [facility]. Will not be due to get labs [...] glucose control. Up to date with maki cisco network architect current use of insulin Assessment & Plan [...] Encounters Date Type Department Care Team Description 03/02/2025 Orders Only [facility] [address] [place] [address] Provider, MD Jeff 02/22/2025 3:10 PM EDT Office Visit [facility] Endocrinology [place] [address] [place] [address] Aura Hobbs PA-C Type 2 diabetes mellitus with peripheral neuropathy (Primary Dx) 02/18/2025 Refill [facility]ology [address] [place] [address] Aura Hobbs PA-C Medication Refill 01/28/2025 Orders Only [facility] Internal Medicine [address] [place] [address] ProviderJeff MD 12/18/2024 Telephone [facility] Endocrinology [address] [place] [address] [place] [address] Krupa Ponce [place], [place] Blood Sugar Problem from Last 3 Months Immunizations Immunization Administration [...] high school, GED, job training, learning the Thai language, technical skills, or developing parenting skills)? [...] Description 05/31/2025 3:00 PM EST Office Visit [facility] Endocrinology [place] [address] [place] [phone] Samanta Mcghee MD [address] [place] [address] [email or web address] 09/13/2025 1:30 PM EDT Office Visit [facility] Endocrinology [place] [address] [place] [address] Aura Hobbs PA-C 22 [place] [address] [email or web address] 11/08/2025 2:00 PM EDT Office Visit [facility] [place] [facility] 15 [facility] [address] [place] [address] Ilene Arvizu MD 15 [facility] Mark. [address] [place] [address] [email or web address] 12/13/2025 2:40 PM EDT Office Visit [facility] Endocrinology [place] [address] [place] [phone] Samanta Mcghee MD [address] [address] [email or web address] Health Maintenance Due Date Last Done Comments ZOSTER VACCINES (1 of 2) 1977 COLOGUARD 2003 FIT TEST 2003 FOBT 2003 SIGMOIDOSCOPY 2003 VIRTUAL COLONOSCOPY 2003 RSV VACCINE (1 - Risk 60-74 years 1-dose series) 2018 DEPRESSION SCREENING 07/26/2024 07/26/2023 POTASSIUM LEVEL 10/28/2024 10/29/2023, 06/01, 05/09/2023, Additional history exists DIABETIC EYE EXAM 12/09/2024 12/10/2023, , 07/03/2018 INFLUENZA VACCINE (#1) 2025 , 06/03/2023, 06/03/2023, Additional history exists COVID-19 VACCINE ( season) 2025 03/17/2024, 06/10/2023, 05/22/2022, Additional history exists BLOOD PRESSURE 08/25/2025 02/22/2025 HEMOGLOBIN A1C 11/10/2025 06/21/2023, 09/03/2023, 12/27/2022, Additional history exists Postponed from 12/21/2023 (Patient Declines / Guardian Declines) CREATININE LEVEL 02/26/2026 02/26/2025, , 06/21/2023, Additional history exists MAMMOGRAM 04/16/2026 04/16/2024, 03/31, 09/05/2022, Additional history [...] OUTSIDE LAB Routine 02/26/2025 5:01 PM EDT BUN Routine 02/26/2025 5:01 PM EDT CREATININE/EGFR Routine 02/26/2025 5:01 PM EDT HM MAMMOGRAPHY Routine 04/16/2024 9:44 AM EDT HM DIABETES EYE EXAM FOR RESULT ENTRY ONLY Routine 12/10/2023 8:48 AM EDT BASIC METABOLIC PANEL Routine 10/29/2023 11:04 AM EDT Type 2 diabetes mellitus with peripheral neuropathy HEMOGLOBIN A1C Routine 06/21/2023 2:23 PM EST Type 2 diabetes mellitus with peripheral neuropathy HM PAP SMEAR FOR RESULT ENTRY ONLY Routine 05/15/2023 COLONOSCOPY FOR RESULT ENTRY ONLY Routine 04/25/2022 BD DXA SCREENING Routine 08/10/2020 HEPATITIS C ANTIBODY, QUALITATIVE Routine 05/12/2019 2:03 PM EST Routine general medical examination at a health care facility from Last 3 Months or Most Recently Relevant to Health Maintenance Results * Outside Lab (02/26/2025 5:01 PM EDT) [facility] Provider LAB BLOOD ORDERABLES Onelia l Result * Creatinine/eGFR (02/26/2025 5:01 PM EDT) Result [facility] Provider LAB BLOOD ORDERABLES Oneila l Result * BUN (02/26/2025 5:01 PM EDT) [facility] Provider LAB BLOOD ORDERABLES Onelia l Result * MAMMOGRAPHY FOR RESULT ENTRY ONLY (04/16/2024 9:44 AM EDT) Historical Susan HERNANDEZ HEALTH MAINTENANCE Edited Result - Final * DIABETES EYE EXAM FOR RESULT ENTRY ONLY (12/10/2023 8:48 AM EDT) Ilene Arvizu MD HEALTH MAINTENANCE Edited Re sult - Final * Basic metabolic panel (10/29/2023 11:04 AM EDT) Blood Samanta Mcghee MD LAB BLOOD ORDERABLES E dited Result - Final [facility] [address] [place] [address] * (ABNORMAL) Hemoglobin A1c (06/21/2023 2:23 PM EST) HEMOGLOBIN A1C 7.1(H) 4.3 - 5.8 % [facility] Blood 06/21/2023 2:23 PM EST 06/21/2023 2:24 PM EST Aura Hobbs PA-C LAB BLOOD ORDERABL ES Final Result Performing Organization Address [facility]/ZIP Co de Phone Number [address] [address] * HM PAP SMEAR FOR RESULT ENTRY ONLY (05/15/2023) Pap smear NILM, HPV neg Historical Provider HEALTH MAINTENANCE Final Result * HM COLONOSCOPY FOR RESULT ENTRY ONLY (04/25/2022) Historical Provider HEALTH MAINTENANCE Edited Result - Final * DXA Screening (08/10/2020) Anatomical Region Laterality Modality Bone Density Bone Density Diane Avilez NP IMG BD BONE DENSITY DEXA Edited Result - Final * Hepatitis C antibody, qualitative (05/12/2019 2:03 PM EST) HCV NON-REACTIV E NON-REACTI VE [facility] Blood 05/12/2019 2:03 PM EST 05/12/2019 2:12 PM EST Result [facility] Diane Avilez NP LAB BLOOD ORDERABLES Final Resu lt Performing Organization Address City/[facility]/ZIP Co de Phone Number [address] [address] from Last 3 Months or Most Recently Relevant to Health Maintenance Insurance [employer] REPL[employer] REPLACEMENT [facility] [place] [id number] [facility] [place] [id number] Care Teams Single Corner Cutter Relationship Specialty Start Date End Date Ilene Arvizu MD 15 [facility] [address] [place] [address] [email or web address] PCP - General Family Medicine 10/25/23 Jamie Alvarado MD [address] [place] [address] Dr COLON [address] [place] [address] Ophthalmology 02/04/20 Yousif Carney MD [address] [place] [address] Dr COLON [address] [place] [address] Nephrology 07/11/22 Mireille Garcia MD [address] [place] [address] 4B_OB/[place] [address] Obstetrics and Gynecology 12/06/23 Additional Source Comments The information contained in this document represents components of the legal health record. It is not the complete legal health record.[facility]
--- OUTSIDE RECORDS SUMMARY | 2025-03-03 13:39 | XMS_ITS | Encounter Summary ---
Author Organization [facility] Address [address] [place] [address] Phone Care Team Providers Care Elementary Vocal Music Teacher Name Role Phone Jamie Alvarado MD Unavailable Yousif Carney MD Unavailable Ilene Arvizu MD Primary Care Provider Mireille Garcia MD Unavailable Encounter Details Date Type Department Care Team (Late st Contact Info) Description 01/28/2025 Orders Only [facility] [place] [facility] [address] [place] [address] Provider, MD Jeff [address] [place] [address] Social History Tobacco Use Types Packs/Day [...] high school, GED, job training, learning the Estonian language, technical skills, or developing parenting skills)? [...] Description 05/31/2025 3:00 PM EST Office Visit [facility] Endocrinology [place] [address] [place] [phone] Samanta Mcghee MD [address] [address] 09/13/2025 1:30 PM EDT Office Visit [facility] [address] [place] [phone] Aura Hobbs PA-C 22 [place], [place] [phone] [email or web address] 11/08/2025 2:00 PM EDT Office Visit [facility] [place] [facility] 15 [facility] [address] [place] [address] Ilene Arvizu MD 15 [facility] Mark. [address] [place] [address] [email or web address] 12/13/2025 2:40 PM EDT Office Visit [facility] [address] [place] [phone] Samanta Mchgee MD [address] [address] documented as of this encounter Procedures Procedure [...] documented as of this encounter Care Teams Elementary Vocal Music Teacher Relationship Specialty Start Date End Date Ilene Arvizu MD 15 [facility] [address] [place] [address] [email or web address] PCP - General Family Medicine 10/25/23 Jamie Alvarado MD [address] [place] [address] [place] [address] Ophthalmology 02/04/20 Yousif Carney MD [address] [place] [address] [place] [address] Nephrology 07/11/22 Mireille Garcia MD [address] [place] [address] 4B_OB/[place] [address] Obstetrics and Gynecology 12/06/23 documented as of this encounter Additional Source Comments The information contained in this document represents components of the legal health record. It is not the complete legal health record.[facility]
== END 2025-03-03 11:44 | disposition home or self-care (01) ==
LOC: HO.HKA 11:05
PROVIDERS: PCP Family Medicine; Visit Provider Internal Medicine Nephrology
DX: E11.22 Type 2 diabetes mellitus with diabetic chronic kidney disease (principal); N18.30 Chronic kidney disease, stage 3 unspecified; E87.5 Hyperkalemia; I10 Essential (primary) hypertension; R30.0 Dysuria
CPT/HCPCS: 99214

== ENCOUNTER 2025-03-03 11:48 | Outpatient (REF) | payer OTHER, SELFPAY | END 2025-03-03 11:49 | disposition home or self-care (01) | LOC: HO.10HDL 11:48 | PROVIDERS: Visit Provider Internal Medicine Nephrology | DX: R30.0 Dysuria (principal) | CPT/HCPCS: 87086 ==